=== PATIENT | female | born 1955 | race Caucasian/White ===

== ENCOUNTER 2017-01-19 18:13 | Inpatient (IN) ==
[2017-01-19] MEDS ORDERED: IPRATROPIUM/ALBUTEROL 3 ML AMPUL.NEB NEB ONE ×2 (18:28→18:36)
--- NOTE | 2017-01-19 18:34 | Emergency Department Note ---
SOB HPI - General Chief Complaint: Shortness of Breath/Dyspnea Stated Complaint: Shortness of breath Time Seen by Provider: 01/19/17 18:28 Source: patient Mode of arrival: ambulatory Limitations: no limitations - History of Present Illness Patient is here for difficulty breathing, history of COPD continues smoking with gradually progressive shortness of breath is also on oxygen.. She smokes about 10 0 today, was recently hospitalized for COPD exacerbation she was at [facility] without last hospital admission. Has been in and out of hospital frequently, denies any chest pain but does feel short of breath which has come on gradually worse today. MD Complaint: shortness of breath - Related Data Home Medications Medication Instructions Recorded Confirmed Albuterol Sulfate [Ventolin] 1 puff INH Q4HP PRN 08/15/16 12/24/16 Baclofen [Lioresal] 10 mg PO BID 08/15/16 12/24/16 Gabapentin [Neurontin] 300 mg PO BID 08/15/16 12/24/16 sitaGLIPtin [Januvia] 50 mg PO DAILY 12/23/16 12/24/16 Previous Rx's Medication Instructions Recorded Potassium Chloride [Kdur] 20 meq PO BIDCC #15 tablet 10/02/16 metFORMIN [Glucophage] 500 mg PO BIDCC #60 tablet 11/21/16 Azithromycin [Zithromax] 250 mg PO DAILY #6 tablet 12/23/16 Lisinopril [Zestril] 10 mg PO DAILY #30 tablet 12/23/16 predniSONE [Deltasone] 40 mg PO DAILY #10 tablet 12/23/16 Allergies Allergy/AdvReac Type Severity Reaction Status Date / Time Penicillins Allergy Unknown Rash Verified 01/19/17 18:17 Review of Systems All systems ED: reviewed and negative except as stated. Past Medical History - Past Medical History Source: old records reviewed, nursing notes reviewed Medical history: Reports: arthritis, COPD, diabetes, hypertension, osteoporosis , thyroid disease Surgical history ED: Reports: cholecystectomy, other (myomectomy) Psychiatric history: Reports: depression Family history: Reports: non-contributory - Social History smoking status: Current every day smoker Alcohol use: Reports: None Drug use: Reports: marijuana, prescription drug abuse (in the past) Physical Exam - General Limitations: no limitations General appearance: alert, in no apparent distress - Head Head exam: atraumatic, normocephalic - Eye Eye exam: Present: normal appearance, PERRL, EOMI. Absent: conjunctival injection - ENT ENT exam: normal exam, normal oropharynx, mucous membranes dry, TM's normal bilaterally, normal external ear exam, other (poor oral hygiene) - Neck Neck exam: Present: normal inspection, full ROM - Chest Chest inspection: Present: normal inspection, symmetric chest wall rise - Respiratory Respiratory exam: Present: respiratory distress, wheezes, prolonged expiratory phase - Cardiovascular Cardiovascular exam: Present: regular rate, normal heart sounds - Abdominal Exam Abdominal exam: Present: soft. Absent: distention - Extremities Exam Extremities exam: Present: normal inspection, full ROM. Absent: joint swelling - Back Exam Back exam: Present: normal inspection, full ROM. Absent: CVA tenderness (R), CVA tenderness (L) - Neurological Exam Neurological exam: Present: alert, oriented X3, CN II-XII intact. Absent: motor sensory deficit - Psychiatric Psychiatric exam: Present: normal affect - Skin Skin exam: Present: warm, dry, cyanosis Course - Reevaluation(s) Reevaluation #1: Patient started on Solu-Medrol, given IV fluids as well as breathing treatments , she was still markedly wheezy even after Solu-Medrol and breathing treatments , was started on Levaquin as her white blood cell count was 19,000, likely some of this is from her steroid use. Vital Signs Temperature 98.3 F 01/19/17 18:14 Pulse Rate 126 H 01/19/17 18:14 Respiratory Rate 28 H 01/19/17 18:14 Blood Pressure 199/88 01/19/17 18:14 Pulse Oximetry (%) 95 01/19/17 18:14 Temperature 98.3 F 01/19/17 18:14 Pulse Rate 116 H 01/19/17 19:27 Respiratory Rate 26 H 01/19/17 19:27 Blood Pressure 171/88 01/19/17 19:01 Pulse Oximetry (%) 95 01/19/17 19:27 Shortness of Breath/Dyspnea - [facility] Narrative Medical decision making narrative: final diagnosis is COPD exacerb ,severe and end-stage COPD, discussed with Dr. Srinivasan - Lab Data Lab results reviewed: Yes I reviewed the patient's lab results. Result diagrams: 01/19/17 18:41 01/19/17 18:41 Lab Results 01/19/17 01/19/17 Range/Units 18:41 18:41 WBC 19.0 H (4.5-11.0) K/mcL RBC 3.70 L (4.00-5.20) M/mcL Hgb 11.1 L (12.0-15.0) g/dL Hct 33.9 L (36.0-48.0) % MCV 91.8 (80.0-100.0) fL MCH 30.1 (26.0-34.0) pg MCHC 32.8 (31.0-36.0) g/dL RDW 13.9 (11.5-14.5) % Plt Count 461 H (140-440) K/mcL MPV 7.1 L (7.4-10.4) fL Gran % 87.1 H (38.0-78.0) % Lymph % (Auto) 10.1 L (15.5-49.0) % [place] % (Auto) 1.8 (1.0-12.0) % Eos % (Auto) 0.8 (0.0-7.0) % Baso % (Auto) 0.2 (0.0-2.0) % Gran # 16.6 H (1.8-8.0) K/mcL Lymph # (Auto) 1.9 (1.5-4.8) K/mcL [place] # (Auto) 0.3 (0.1-0.9) K/mcL Eos # (Auto) 0.2 (0.0-0.7) K/mcL Baso # (Auto) 0 (0.0-0.3) K/mcL Sodium 139 (133-145) mmol/L Potassium 4.0 (3.3-5.1) mmol/L Chloride 96 (96-108) mmol/L Carbon Dioxide 30 (22-30) mmol/L Anion Gap 13.0 (8-16) BUN 18 (8-23) mg/dl Creatinine 0.9 (0.6-1.1) mg/dl GFR Calculation 68 Glucose 294 H (70-105) mg/dL Calcium 9.2 (8.6-10.4) mg/dl Total Bilirubin < 0.2 (0.0-1.0) mg/dL AST 12 (0-37) U/l ALT 10 (0-40) U/l Alkaline Phosphatase 100 (39-117) U/L NT-Pro-B Natriuret Pep 3149.0 H (0-125) pg/ml Total Protein 6.9 (5.9-8.4) gm/dL Albumin 4.1 (3.2-5.2) gm/dL Globulin 2.8 (2.2-3.7) gm/dL Albumin/Globulin Ratio 1.5 (1.0-2.3) - EKG Data EKG attestation: Yes I reviewed and interpreted this EKG. EKG shows normal: Reports: sinus rhythm Rate: Reports: tachycardia [place]/QRS: Reports: right axis deviation Disposition Clinical Impression: COPD exacerbation Disposition: Xfer As Inpt ([facility]) Condition: Fair Referrals: Jazmine Yao MD [Primary Care Provider] -
[2017-01-19] MEDS ORDERED: methylPREDNISolone SOD SUCC 125 MG/2 ML VIAL IV ONE (18:36)
[2017-01-19 19:04] LABS: Basophils # (Auto) 0 K/mcL (0.0-0.3); Basophils % (Auto) 0.2 % (0.0-2.0); Eosinophils # (Auto) 0.2 K/mcL (0.0-0.7); Eosinophils % (Auto) 0.8 % (0.0-7.0); Granulocytes % (Auto) 87.1 % (38.0-78.0); Lymphocytes # (Auto) 1.9 K/mcL (1.5-4.8); Lymphocytes % (Auto) 10.1 % (15.5-49.0); Mean Cell Volume 91.8 fL (80.0-100.0); Mean Corpuscular HGB Conc 32.8 g/dL (31.0-36.0); Mean Corpuscular Hemoglobin 30.1 pg (26.0-34.0); Monocytes # (Auto) 0.3 K/mcL (0.1-0.9); Monocytes % (Auto) 1.8 % (1.0-12.0); Platelet Count 461 K/mcL (140-440); Red Cell Distribution Width 13.9 % (11.5-14.5)
[2017-01-19] MEDS: THEOPHYLLINE ANHYDROUS 200 MG TAB.SR.12H PO SCH ×2 (19:09→22:30)
[2017-01-19 19:25] LABS: ALT/SGPT 10 U/l (0-40); Albumin 4.1 gm/dL (3.2-5.2); Albumin/Globulin Ratio 1.5 (1.0-2.3); Alkaline Phosphatase 100 U/L (39-117); Blood Urea Nitrogen 18 mg/dl (8-23)
[2017-01-19] MEDS ORDERED: LEVOFLOXACIN 500 MG/100 ML BAG IV ONE (19:47)
[2017-01-19] MEDS ORDERED: NICOTINE 21 MG PATCH TOPICAL ONE (20:01)
[2017-01-19] MEDS ORDERED: LORazepam 2 MG/ML VIAL IV ONE (20:02)
--- NOTE | 2017-01-19 20:39 | Internal Med History&Physical ---
Medical - H&P: HPI Patient information: Note initiated : 01/19/17 at 8:36 pm Patient: Zakia Gibson 62 y/o F admitted on for Shortness of breath. History of present illness: Ms. Gibson is a 62 year old F This patient has a long-standing history of COPD. She has been admitted quite a few times for respiratory failure. She was in our emergency room on December 29, and transferred over to [facility] with respiratory failure. She says she was there for about 5 days and then was discharged home on prednisone and antibiotics. She thinks she did okay for a week or so, and then developed increasing shortness of breath again 5 or 6 days ago. She did see her primary care physician about 2 days ago who put her on prednisone 60 mg a day, and continued an antibiotic that she had already been on, the name of which she cannot remember. Today she presented to the emergency room because she just could not catch her breath. She is on home oxygen. She has had a mild headache , and has a chronic cough which is not much different than usual. She says she has only minimal sinus congestion. She was a little bit nauseated today. She does have intermittent diarrhea. Otherwise, she denies known fever or chills, dizziness, new eye or ear symptoms. She denies sore throat, chest pain or palpitations, abdominal pain, nausea or vomiting, dysuria. She denies swollen glands. ER evaluation showed marked leukocytosis, tachycardia, tachypnea, hypoxia. Patient was treated with IV steroids, continuous nebs, theophylline, Ativan, morphine, but really showed no improvement. Patient is now admitted for further workup and treatment. Past medical history: -Admitted to [facility] on December 29, 2016, respiratory failure with CO2 retention and hypoxia and acidosis. Severe sepsis June 2015 COPD with CO2 retention, also possible pulmonary fibrosis. Multilobar pneumonia Malignant hypertension Flash pulmonary edema T6 compression fracture/chronic pain. Type 2 diabetes Tobacco abuse Chronic pain, diabetic neuropathy Osteoporosis Osteoarthritis Thyroid disease Bronchitis (Acute) Hypercarbia (Chronic) Acute on chronic respiratory failure with hypoxemia (Acute) Pulmonary edema (Resolved) COPD with exacerbation (Acute) Right upper lobe pneumonia (Acute) Acute opioid intoxication delirium with moderate or severe use disorder (Acute) Depression. Anxiety Medications: The patient did not bring a list of her meds, and cannot recall them. We are waiting a discharge medication list from [facility] from 2 weeks ago. (Januvia 50 mg daily -- ? discontinued) Metformin 500 mg twice daily next line prednisone 60 mg daily (Potassium chloride 20 mEq twice daily-- ? discontinued) (Lisinopril 10 mg daily-- discontinued?) Gabapentin 300 mg twice daily (Baclofen 10 mg twice daily-- discontinued?) Albuterol inhaler every 4 hours as needed Oxygen 3 L continuous She was discharged from [facility] on Levaquin 500 mg daily, and this was probably continued by her PCP. Duo nebs 3 times daily Amlodipine 5 mg daily Tylenol 1-2 tabs every 4 hours as needed Compazine 10 mg every 6 hours as needed nausea Florastor 250 mg twice daily Dulcolax as needed constipation Colace 100 mg twice daily Budesonide 0.5 mg every 12 hours per nebulizer Prednisone taper NovoLog sliding scale before meals and at bedtime MiraLAX 17 g by mouth [place] 7.5/325 1-2 every 4 hours as needed pain Nicotine patch 21 mg daily Paxil 20 mg daily Singulair 10 mg nightly Levothyroxine 100 mcg daily Omeprazole 40 mg daily Albuterol nebulizer every 2 hours as needed Past surgical history: cholecystectomy, myomectomy, anterior spinal fusion C4 through C6. Severe degenerative disc disease C3-4 and C6-7, spinal canal stenosis at C3-4 Allergies: Penicillin Family history: No history of lung cancer, hypertension, pulmonary emboli. Patient says her mother and grandmother both had diabetes. Her mom with cervical cancer. Her father with bile duct cancer. Her sister has had TIAs. She has 1 daughter who is alive and well. Social history: Chronic tobacco abuse, she has been smoking since the age of 18. She is currently smokes about a half pack of cigarettes per day. She also smokes marijuana daily. She generally does not drink alcohol. She does not use drugs. She moved in with her sister about a year ago. Medical - H&P: Meds Home Medications Medication Instructions Recorded Confirmed Type Albuterol Sulfate [Ventolin] 1 puff INH Q4HP PRN 08/15/16 12/24/16 History Baclofen [Lioresal] 10 mg PO BID 08/15/16 12/24/16 History Gabapentin [Neurontin] 300 mg PO BID 08/15/16 12/24/16 History Potassium Chloride [Kdur] 20 meq PO BIDCC #15 tablet 10/02/16 12/24/16 Rx metFORMIN [Glucophage] 500 mg PO BIDCC #60 tablet 11/21/16 12/24/16 Rx Azithromycin [Zithromax] 250 mg PO DAILY #6 tablet 12/23/16 12/24/16 Rx Lisinopril [Zestril] 10 mg PO DAILY #30 tablet 12/23/16 12/24/16 Rx predniSONE [Deltasone] 40 mg PO DAILY #10 tablet 12/23/16 12/24/16 Rx sitaGLIPtin [Januvia] 50 mg PO DAILY 12/23/16 12/24/16 History Allergies Allergy/AdvReac Type Severity Reaction Status Date / Time Penicillins Allergy Unknown Rash Verified 01/19/17 18:17 Medical - H&P: Exam - Constitutional Vitals: Temp Pulse Resp BP Pulse Ox 98.3 F 116 H 25 H 160/87 94 01/19/17 18:14 01/19/17 20:33 01/19/17 20:33 01/19/17 20:31 01/19/17 20:33 Patient is sitting straight up in bed, as that is her most comfortable position. She is somewhat tachypneic during our interview, but continues to eat a sandwich at the same time. Head: Normocephalic, atraumatic. Eyes: PERRLA, EOMI, anicteric. Ears: Both canals are occluded by cerumen. Pharynx: Pharynx appears clear. Mucosa looks dry. Teeth are in very poor condition, and most are broken off. Neck: Is supple, without obvious lymphadenopathy, JVD, thyromegaly, bruits. Exam was a bit difficult over the noise of her breathing. Cardiac: Shows regular rate and rhythm, with normal S1 and S2. No murmurs, rubs , gallops are noted. Lungs: She has fairly coarse somewhat wet sounding breath sounds throughout, with scattered wheezes. Accessory muscle use is noted. She is sitting straight up and leaning slightly forward. Abdomen: Is soft and nontender. Abdomen exam is suboptimal because of her unwillingness to lay down. Bowel sounds are active. Extremities: She has about 1+ pitting edema almost up to the knees bilaterally. Pulses appear intact. Skin exam: Shows numerous ecchymoses, mainly on her arms, likely due to recent hospital visits. Neurologic exam: The patient is alert and oriented, and exam is grossly nonfocal. Medical - H&P: Reslt - Labs CBC & Chem 7: 01/19/17 18:41 01/19/17 18:41 Labs: Short CBC 01/19/17 Range/Units 18:41 WBC 19.0 H (4.5-11.0) K/mcL Hgb 11.1 L (12.0-15.0) g/dL Hct 33.9 L (36.0-48.0) % Plt Count 461 H (140-440) K/mcL BMP 01/19/17 18:41 Sodium 139 Potassium 4.0 Chloride 96 Carbon Dioxide 30 BUN 18 Creatinine 0.9 Glucose 294 H Calcium 9.2 Liver Function 01/19/17 Range/Units 18:41 Total Bilirubin < 0.2 (0.0-1.0) mg/dL AST 12 (0-37) U/l ALT 10 (0-40) U/l Alkaline Phosphatase 100 (39-117) U/L Albumin 4.1 (3.2-5.2) gm/dL January 18: BNP is elevated at 3149 EKG: Sinus tachycardia at a rate of about 100. Right bundle branch block. No significant change from previous. Chest x-ray: A formal report is not ready yet. X-ray shows hyperinflation with flattened diaphragms. There appears to be mild pulmonary vascular cephalization. CBC differential: Show 16,000 granulocytes. Urinalysis: Shows 30 mg of protein, 50 mg of glucose, 5 hyaline casts, and is otherwise normal. July,: Echocardiogram: Hyperdynamic LV systolic performance ejection fraction of 75%. Mitral annular calcification. December 29, 2016 AB L nasal cannula: PH 7.26, PCO2 81, PO2 83, bicarb 36, O2 saturation 98% Medical - H&P: A/P (1) SIRS (systemic inflammatory response syndrome) Current visit: Yes Status: Acute (2) CHF (congestive heart failure) Current visit: Yes Status: Acute (3) Acute on chronic respiratory failure with hypoxemia Current visit: No Status: Acute (4) COPD (chronic obstructive pulmonary disease) Current visit: No Status: Acute (5) Diabetes Current visit: No Status: Chronic (6) Tobacco abuse disorder Current visit: No Status: Chronic - Narrative A/P Narrative: #1. Pulmonary. Acute on chronic respiratory failure, with hypoxia. Likely cause a COPD exacerbation, versus occult pneumonia. BNP is also elevated , so there may be to some degree of CHF. -Admit to telemetry for close monitoring. -Oxygen, bronchodilators, pulmonary toilet. -Blood and urine cultures. -Sputum culture if available. -Cover for possible community-acquired pneumonia, with Rocephin and Zithromax. She was also hospitalized earlier this month, so she may need to be covered with vancomycin as well. -IV steroids. -Check lactic acid and pro-calcitonin. -Rule out other causes of hypoxia. Check d-dimer and troponin. Check ABG. Send for records from recent hospitalization at [facility]. #2. Tobacco abuse. Discussed that she should once again consider quitting smoking. -NicoDerm patch. 3. DVT prophylaxis: Subcu heparin. 4. CODE STATUS: Full code. Patient states that at this time she think she would still want everything done. Her older sister is in the room with her, and would act as her POA. 5. Cardiac. Elevated BNP. We will avoid IV fluids tonight. -Trial of 1 dose of IV Lasix tonight. Recheck chest x-ray in the morning. Consider echocardiogram. -History of hypertension. 6. Osteoporosis and history of compression fractures. She should be on calcium plus vitamin D, at a minimum. 7. Endocrine. -Type 2 diabetes. Continue Januvia and metformin. Accu-Cheks and sliding scale insulin coverage. Continue lisinopril. It is not clear why patient is not on a statin and aspirin as well. Check medication list when it arrives from [facility]. 8. Neurologic. History of neuropathy. Continue gabapentin. -Contact PCP office tomorrow, if they are open, to try to further discrepancies between our medication list and the [place] discharge medication list. This visit took approximately 65 minutes, to review the patient's extensive old records, review records from [facility], discussed her case with the ER MD, interview and examine her, review plan of care with the patient and her sister, and write orders
[2017-01-19 20:47] LABS: Appearance,Urine CLEAR; Bacteria,Urine 0 /hpf (0); Bilirubin,Urine NEG (NEG); Color,Urine STRAW; Glucose,Urine (UA) 50 mg/dL (NEG); Leukocyte Esterase,Urine NEG /uL (NEG); Nitrate,Urine NEG (NEG); Protein,Urine 30 mg/dL (NEG); Specific Gravity,Urine 1.012 (1.000-1.035); Urine Blood NEG mg/dL (<0.03); Urine Hyaline Cast 5 /lpf (0-2); Urine RBC < 1 /hpf (0-1); Urine Squamous Epithelial Cell 1 /hpf (0-4); Urine Transitional Epi Cells < 1 /hpf (0-2); Urine WBC 1 /hpf (0-4); Urobilinogen,Urine NEG (NEG)
[2017-01-19] MEDS ORDERED: ACETAMINOPHEN 325 MG TABLET PO PRN (21:31)
[2017-01-19] MEDS ORDERED: ONDANSETRON 4 MG/2 ML VIAL IV PRN (21:31)
[2017-01-19] MEDS ORDERED: cefTRIAXone 1 GM VIAL ONE (21:49)
[2017-01-19] MEDS ORDERED: LORazepam 2 MG/ML VIAL IV PRN (22:14)
[2017-01-19] MEDS: cefTRIAXone 1 GM in DEXTROSE 5% IN WATER 50 ML IV SCH (22:30)
[2017-01-19] MEDS ORDERED: FUROSEMIDE 20 MG/2 ML VIAL IV ONE ×2 (22:39→23:08)
[2017-01-19] MEDS: methylPREDNISolone SOD SUCC 125 MG/2 ML VIAL IV SCH (23:11)
[2017-01-19] MEDS: AZITHROMYCIN 500 MG in DEXTROSE 5% IN WATER 250 ML IV SCH (23:16)
[2017-01-19] MEDS: CARISOPRODOL 350 MG TABLET PO PRN (23:49)
[2017-01-20] MEDS: IPRATROPIUM/ALBUTEROL 3 ML AMPUL.NEB NEB SCH ×4 (00:47→20:08)
[2017-01-20] MEDS: INSULIN LISPRO 1 UNIT/0.01 ML UNIT SQ SCH ×5 (00:52→20:41)
[2017-01-20 00:53] LABS: Hemoglobin A1C 9.1 % HGB (4.0-6.0)
[2017-01-20] MEDS ORDERED: INSULIN LISPRO 1 UNIT/0.01 ML UNIT SQ ONE (00:53)
--- NOTE | 2017-01-20 06:19 | XRay Report ---
CLINICAL INFORMATION: Dyspnea COMPARISON: 12/24/2016 FINDINGS: Heart size, mediastinum and pulmonary vessels are normal. Lungs volumes are elevated suggestive of COPD. There are healing fractures of both lateral 10th ribs with increasing density overlying the right side fracture site. This could represent small extrapleural hematoma. Mild osteoporotic compression fractures of thoracic spine are stable IMPRESSION: COPD Healing fractures of both lateral 10th ribs with increasing density developing over the right lateral rib fracture site. This likely represents a small extrapleural hematoma. Pulmonary nodule less likely. Suggest: Right rib films Interpreted and Authenticated by: Gerry Danielson 01/20/17
[2017-01-20 06:31] LABS: Basophils # (Auto) 0 K/mcL (0.0-0.3); Basophils % (Auto) 0 % (0.0-2.0); Eosinophils # (Auto) 0.1 K/mcL (0.0-0.7); Eosinophils % (Auto) 0.6 % (0.0-7.0); Granulocytes % (Auto) 96.2 % (38.0-78.0); Lymphocytes # (Auto) 0.3 K/mcL (1.5-4.8); Lymphocytes % (Auto) 2.8 % (15.5-49.0); Mean Cell Volume 92.6 fL (80.0-100.0); Mean Corpuscular HGB Conc 33.2 g/dL (31.0-36.0); Mean Corpuscular Hemoglobin 30.7 pg (26.0-34.0); Monocytes # (Auto) 0.1 K/mcL (0.1-0.9); Monocytes % (Auto) 0.4 % (1.0-12.0); Platelet Count 394 K/mcL (140-440); RBC 3.39 M/mcL (4.00-5.20); Red Cell Distribution Width 13.7 % (11.5-14.5)
[2017-01-20 07:58] LABS: ALT/SGPT 10 U/l (0-40); Albumin 3.8 gm/dL (3.2-5.2); Albumin/Globulin Ratio 1.6 (1.0-2.3); Alkaline Phosphatase 92 U/L (39-117); Bilirubin,Direct < 0.2 mg/dL (0.0-0.3); Blood Urea Nitrogen 23 mg/dl (8-23); Gamma Glutamyl Transpeptidase 15 U/L (5-36); Magnesium 1.8 mg/dL (1.6-2.5); Uric Acid 6.5 mg/dL (2.5-8.0)
[2017-01-20] MEDS: PANTOPRAZOLE 40 MG PACKET PO SCH (08:03)
[2017-01-20] MEDS: LEVOTHYROXINE 100 MCG TABLET PO SCH (08:03)
[2017-01-20] MEDS ORDERED: THEOPHYLLINE ANHYDROUS 200 MG TAB.SR.12H PO SCH (09:00)
[2017-01-20] MEDS: ALBUTEROL SULFATE 2.5 MG/3 ML NEBULIZER NEB PRN (09:27)
[2017-01-20] MEDS: methylPREDNISolone SOD SUCC 125 MG/2 ML VIAL IV SCH ×2 (09:35→20:10)
[2017-01-20] MEDS: VITAMIN D3 1,000 UNIT TABLET PO SCH ×2 (09:36→20:15)
[2017-01-20] MEDS: PARoxetine 20 MG TABLET PO SCH (09:36)
[2017-01-20] MEDS: POLYETHYLENE GLYCOL 3350 17 GM PACKET PO SCH (09:36)
[2017-01-20] MEDS: GABAPENTIN 300 MG CAPSULE PO SCH ×2 (09:36→20:10)
[2017-01-20] MEDS: amLODIPine 5 MG TABLET PO SCH (09:36)
[2017-01-20] MEDS: ENOXAPARIN 40 MG/0.4 ML SYRINGE SQ SCH (09:36)
[2017-01-20] MEDS: CALCIUM CARBONATE 500 MG TAB.CHEW CHEWED SCH ×2 (09:37→15:32)
[2017-01-20] MEDS: HYDROCODONE/APAP 7.5/325MG TABLET PO PRN ×2 (09:38→15:37)
--- NOTE | 2017-01-20 11:44 | XRay Report ---
CLINICAL INFORMATION: Hypoxia COMPARISON: 01/19/2017 FINDINGS: The heart is mildly enlarged. Mediastinum is unremarkable. Pulmonary vessels are mildly distended and there is mild interstitial edema. Healing fractures of the posterior lateral 10th ribs are again noted IMPRESSION: Mild CHF Interpreted and Authenticated by: Gerry Danielson 01/20/17
--- NOTE | 2017-01-20 15:24 | Internal Med Progress Note ---
Medical - PN: Subj Patient information: Note initiated : 01/20/17 at 3:24 pm Patient: Zakia Gibson 62 y/o F admitted on 01/19/17 for Shortness of breath. Interval history: January 19, 2017: History of present illness: Ms. Gibson is a 62 year old F This patient has a long-standing history of COPD. She has been admitted quite a few times for respiratory failure. She was in our emergency room on December 29, and transferred over to [facility] with respiratory failure. She says she was there for about 5 days and then was discharged home on prednisone and antibiotics. She thinks she did okay for a week or so, and then developed increasing shortness of breath again 5 or 6 days ago. She did see her primary care physician about 2 days ago who put her on prednisone 60 mg a day, and continued an antibiotic that she had already been on, the name of which she cannot remember. Today she presented to the emergency room because she just could not catch her breath. She is on home oxygen. She has had a mild headache , and has a chronic cough which is not much different than usual. She says she has only minimal sinus congestion. She was a little bit nauseated today. She does have intermittent diarrhea. Otherwise, she denies known fever or chills, dizziness, new eye or ear symptoms. She denies sore throat, chest pain or palpitations, abdominal pain, nausea or vomiting, dysuria. She denies swollen glands. ER evaluation showed marked leukocytosis, tachycardia, tachypnea, hypoxia. Patient was treated with IV steroids, continuous nebs, theophylline, Ativan, morphine, but really showed no improvement. Patient is now admitted for further workup and treatment. January 20: -The patient had a reasonably good night. She remains tachycardic, but tachypnea is improved. Blood pressures are running a bit high. Metcalf catheter was placed, as I gave her IV Lasix for possible CHF. She did diurese about 500 mL overnight. White blood cell count is improved today, and lactic acid is back to normal. Blood sugars are running quite high, presumably due to the steroids. -The patient says she is feeling better today. She is sitting up in a chair. She notes she does much better with an oxygen mask and a nasal cannula, as she tends to breathe through her mouth. She is quite annoyed by her Metcalf catheter , and would like that discontinued. She is demanding that we give her a Pepsi, and not diet. She says she understands that it is not good for her diabetes or her kidneys, but she wants it anyway. Shortness of breath overall is improved, as is her cough. Otherwise, she denies fever or chills, sore throat, chest pain or palpitations, abdominal pain nausea or vomiting, diarrhea. - Constitutional Vitals: Vital Signs Temp Pulse Resp BP Pulse Ox 98.2 F 108 H 20 182/88 94 01/20/17 12:00 01/20/17 13:33 01/20/17 13:33 01/20/17 12:00 01/20/17 13:33 Period Temp Pulse Resp BP Sys/Gutierrez Pulse Ox Last 24 Hr 97.8 F-98.4 F 96-110 20-30 155-182/74-101 89-100 Intake and Output 01/20/17 01/20/17 01/20/17 05:59 13:59 21:59 Intake Total 1210 / 1210 370 / 370 Output Total 1811 / 1811 Balance -601 / -601 370 / 370 Weight 126 lb 8 oz Patient Weight 01/21/17 05:59 Weight 126 lb 8 oz Intake & Output: Intake & Output 01/20/17 01/20/17 01/20/17 05:59 13:59 21:59 Intake Total 1210 / 1210 370 / 370 Output Total 1811 / 1811 Balance -601 / -601 370 / 370 Weight 126 lb 8 oz Intake: IV 250 / 250 Zithromax 500 mg In 250 / 250 Dextrose 5% in Water 250 ml @ 250 mls/hr IV DAILY FITO Rx#:[id number] Oral 1160 / 1160 120 / 120 IV - Manual Only 50 / 50 Output: Urine Catheter Amount 600 / 600 Void Amount 1210 / 1210 # of times incontinent of 1 / 1 urine Other: Meal snack Breakfast Percent of Meal Consumed 100% 25% Feeding Ability Assist with Tray Set Up # Bowel Movements 1 Heart rate is 108. Respiratory rate 20 blood pressure 182/88. O2 saturation is 94% on a 2 L oxygen mask. She is sitting up in a chair, eating lunch, and appears to have a good appetite. Neck shows no obvious JVD or lymphadenopathy. Cardiac exam shows regular rate and rhythm. Lungs: Have soft diffuse wheezes throughout both lung bullard. Breathing is mildly labored. Abdomen is soft and nontender. Extremities: Show about 1+ edema at the ankles and feet. Neurologic exam: Is grossly nonfocal Medical - PN: Obj Da - Labs CBC & Chem 7: 01/20/17 03:40 01/20/17 03:40 Labs: Abnormal Lab Results 01/20/17 01/20/17 01/19/17 03:40 03:40 22:20 WBC 12.0 H RBC 3.39 L Hgb 10.4 L Hct 31.4 L MPV 7.1 L Gran % 96.2 H Lymph % (Auto) 2.8 L Motley % (Auto) 0.4 L Gran # 11.6 H Lymph # (Auto) 0.3 L D-Dimer 0.57 H VBG Lactic Acid Chloride 93 L Carbon Dioxide 31 H Glucose 367 H 01/19/17 22:00 WBC RBC Hgb Hct MPV Gran % Lymph % (Auto) Motley % (Auto) Gran # Lymph # (Auto) D-Dimer VBG Lactic Acid 4.4 H* Chloride Carbon Dioxide Glucose January 20: Lactic acid is down to 2.2 Follow-up chest x-ray: Pulmonary vascular congestion, with mild interstitial edema. Rib fractures. Mild cardiomegaly. January 18: BNP is elevated at 3149 EKG: Sinus tachycardia at a rate of about 116. Right bundle branch block. No significant change from previous. Chest x-ray: X-ray shows hyperinflation with flattened diaphragms. There appears to be mild pulmonary vascular cephalization. Mild cardiomegaly. Healing fractures of the posterior lateral 10th ribs are noted, with an increasing density developing, likely consistent with extrapleural hematoma.. CBC differential: Show 16,000 granulocytes. White blood cell count 19,000. Chemistry panel: Glucose 294. Hemoglobin A1c is elevated at 9.1% Urinalysis: Shows 30 mg of protein, 50 mg of glucose, 5 hyaline casts, and is otherwise normal. July,: Echocardiogram: Hyperdynamic LV systolic performance ejection fraction of 75%. Mitral annular calcification. December 29, 2016 AB L nasal cannula: PH 7.26, PCO2 81, PO2 83, bicarb 36, O2 saturation 98% Meds: Medications Acetaminophen (Tylenol) 650 mg PO Q6HP PRN PRN Reason: PAIN/FEVER > 101 Hydrocodone Bitart/Acetaminophen ([place] 7.5/325mg) 2 tab PO Q4-6HP PRN PRN Reason: Pain Last Admin: 01/20/17 09:38 Dose: 2 tab Albuterol Sulfate (Ventolin) 2.5 mg NEB Q4HRT PRN PRN Reason: Shortness Of Breath Or Wheezing Last Admin: 01/20/17 09:27 Dose: 2.5 mg Albuterol/Ipratropium (Duoneb) 3 ml NEB Q6HRT FITO Last Admin: 01/20/17 13:32 Dose: 3 ml Amlodipine Besylate (Norvasc) 5 mg PO DAILY [facility] Last Admin: 01/20/17 09:36 Dose: 5 mg Calcium Carbonate/Glycine (Tums) 500 mg CHEWED BID@0830,1230 [facility] Last Admin: 01/20/17 09:37 Dose: 500 mg Carisoprodol (Soma) 350 mg PO QIDP PRN PRN Reason: Muscle Spasm Last Admin: 01/19/17 23:49 Dose: 350 mg Diagnostic Test (Pha) (Accu-Chek) 1 each FS ACHS [facility] Last Admin: 01/20/17 12:05 Dose: 1 each Enoxaparin Sodium (Lovenox) 40 mg SQ DAILY [facility] Last Admin: 01/20/17 09:36 Dose: 40 mg Gabapentin (Neurontin) 300 mg PO BID [facility] Last Admin: 01/20/17 09:36 Dose: 300 mg Azithromycin 500 mg/ Dextrose 250 mls @ 250 mls/hr IV DAILY [facility] Stop: 01/21/17 09:59 Last Infusion: 01/20/17 06:24 Dose: Infused Ceftriaxone Sodium 1 gm/ (Dextrose) 50 mls @ 100 mls/hr IV DAILY [facility] Last Admin: 01/19/17 22:30 Dose: Not Given Insulin Human Lispro (Humalog) 0 unit SQ ACHS [facility] PRN Reason: Protocol Last Admin: 01/20/17 12:10 Dose: 2 unit Levothyroxine Sodium (Synthroid) 100 mcg PO QAMAC [facility] Last Admin: 01/20/17 08:03 Dose: 100 mcg Lorazepam (Ativan) 0.5 mg IV Q2HP PRN PRN Reason: ANXIETY/SEDATION Methylprednisolone Sodium Succinate (Solu-Medrol) 80 mg IV Q12 [facility] Last Admin: 01/20/17 09:35 Dose: 80 mg Montelukast Sodium (Singular) 10 mg PO HS [facility] Morphine Sulfate (Morphine) 1 mg IV Q2HP PRN PRN Reason: Shortness Of Breath Ondansetron HCl (Zofran) 4 mg IV Q4HP PRN PRN Reason: Nausea And Vomiting Pantoprazole Sodium (Protonix) 40 mg PO QAMAC [facility] Last Admin: 01/20/17 08:03 Dose: 40 mg Paroxetine HCl (Paxil) 20 mg PO DAILY [facility] Last Admin: 01/20/17 09:36 Dose: 20 mg Polyethylene Glycol (Miralax) 17 gm PO DAILY [facility] Last Admin: 01/20/17 09:36 Dose: Not Given Vitamin D (Vitamin D3) 1,000 unit PO BID [facility] Last Admin: 01/20/17 09:36 Dose: 1,000 unit Medical - PN: A/P - Time Spent With Patient Total time spent is greater than 50% in coordination of care (as documented) at patient's floor/unit and/or counseling patient: 25 - 35 minutes (1) SIRS (systemic inflammatory response syndrome) Status: Acute Current Visit: Yes (2) CHF (congestive heart failure) Status: Acute Current Visit: Yes (3) Acute on chronic respiratory failure with hypoxemia Status: Acute Current Visit: No (4) COPD (chronic obstructive pulmonary disease) Status: Acute Current Visit: No (5) Diabetes Status: Chronic Current Visit: No (6) Tobacco abuse disorder Status: Chronic Current Visit: No - Narrative A/P Narrative: #1. Pulmonary. Acute on chronic respiratory failure, with hypoxia. Likely cause a COPD exacerbation, versus occult pneumonia. BNP is also elevated , so there may be some degree of CHF. -Clinically she does look better today. She seems to be in less distress. -Admitted to telemetry for close monitoring. -Continue oxygen, bronchodilators, pulmonary toilet. -Blood and urine cultures. -Sputum culture if available. -Covered for possible community-acquired pneumonia, with Rocephin and Zithromax. She was also hospitalized earlier this month, so she may need to be covered with vancomycin as well but white blood cell count is significantly improved just with Rocephin and Zithromax, so follow for now.. -IV steroids. -Lactic acid improved. -D-dimer is elevated a bit. I discussed possible CT angiogram with the patient , but since she is responding to treatment for COPD and pneumonia, we have elected to wait on that. -Records from [facility] indicated recent discharge on January 02, 2017 after acute on chronic respiratory failure. She was sent home on Levaquin and duo nebs, etc. Also prednisone 40 mg a day. Echocardiogram there showed normal systolic function with an ejection fraction of 55%, moderate LVH. Mild mitral annular calcification. #2. Tobacco abuse. Discussed that she should once again consider quitting smoking. -NicoDerm patch. 3. DVT prophylaxis: Subcu heparin. 4. CODE STATUS: Full code. Patient states that at this time she think she would still want everything done. Her older sister is in the room with her, and would act as her POA. 5. Cardiac. -The patient did diurese somewhat overnight, and does feel a bit better today. Recheck chest x-ray in the morning. Consider echocardiogram. -History of hypertension. This is not well controlled today. She was complaining loudly about wanting a caffeinated Pepsi today, so perhaps caffeine and/or nicotine withdrawal is playing a role. There is also some confusion about which medication she is actually taking at home. She was previously on lisinopril, but it look like [facility] discharged her just on amlodipine. I will add back lisinopril today, as this should help both with blood pressure and with her ankle edema. 6. Osteoporosis and history of compression fractures. She should be on calcium plus vitamin D, at a minimum. 7. Endocrine. -Type 2 diabetes. Leukosis today ranging from 198-296. Patient is insistent on having a regular Pepsi, even though she understands this will affect her blood sugars. Continue Januvia and metformin. Accu-Cheks and sliding scale insulin coverage. Continue lisinopril. It is not clear why patient is not on a statin and aspirin as well. Medication list from [facility] has a lot of discrepancies between the last list here. Nursing is trying to clarify her actual current list.. 8. Neurologic. History of neuropathy. Continue gabapentin. -Contact PCP office tomorrow, if they are open, to try to further discrepancies between our medication list and the [facility] discharge medication list. Medical - PN: Qual - VTE Deep Vein Thrombosis/Pulmonary Embolism Present on Admission: No
[2017-01-20] MEDS: cefTRIAXone 1 GM in DEXTROSE 5% IN WATER 50 ML IV SCH (15:32)
[2017-01-20] MEDS: CARISOPRODOL 350 MG TABLET PO PRN ×2 (15:37→20:15)
[2017-01-20] MEDS: AZITHROMYCIN 500 MG in DEXTROSE 5% IN WATER 250 ML IV SCH (16:11)
[2017-01-20] MEDS: MONTELUKAST 10 MG TABLET PO SCH (20:10)
[2017-01-20] MEDS ORDERED: LISINOPRIL 5 MG TABLET PO SCH (21:00)
[2017-01-21] MEDS: IPRATROPIUM/ALBUTEROL 3 ML AMPUL.NEB NEB SCH ×4 (00:17→20:32)
[2017-01-21 05:37] LABS: Basophils # (Auto) 0 K/mcL (0.0-0.3); Basophils % (Auto) 0 % (0.0-2.0); Eosinophils # (Auto) 0 K/mcL (0.0-0.7); Eosinophils % (Auto) 0.1 % (0.0-7.0); Granulocytes % (Auto) 95.1 % (38.0-78.0); Lymphocytes # (Auto) 0.6 K/mcL (1.5-4.8); Lymphocytes % (Auto) 4.2 % (15.5-49.0); Mean Cell Volume 92.3 fL (80.0-100.0); Mean Corpuscular HGB Conc 32.6 g/dL (31.0-36.0); Mean Corpuscular Hemoglobin 30.1 pg (26.0-34.0); Monocytes # (Auto) 0.1 K/mcL (0.1-0.9); Monocytes % (Auto) 0.6 % (1.0-12.0); Platelet Count 403 K/mcL (140-440); RBC 3.48 M/mcL (4.00-5.20); Red Cell Distribution Width 14.2 % (11.5-14.5)
[2017-01-21 05:58] LABS: ALT/SGPT 9 U/l (0-40); Albumin 3.6 gm/dL (3.2-5.2); Albumin/Globulin Ratio 1.6 (1.0-2.3); Alkaline Phosphatase 82 U/L (39-117); Bilirubin,Direct < 0.2 mg/dL (0.0-0.3); Blood Urea Nitrogen 33 mg/dl (8-23); Gamma Glutamyl Transpeptidase 14 U/L (5-36); Uric Acid 6.1 mg/dL (2.5-8.0)
[2017-01-21] MEDS: CARISOPRODOL 350 MG TABLET PO PRN ×2 (08:07→20:27)
[2017-01-21] MEDS: metFORMIN 500 MG TABLET PO SCH ×2 (08:07→16:49)
[2017-01-21] MEDS: CALCIUM CARBONATE 500 MG TAB.CHEW CHEWED SCH ×2 (08:07→12:11)
[2017-01-21] MEDS: PANTOPRAZOLE 40 MG PACKET PO SCH (08:07)
[2017-01-21] MEDS: HYDROCODONE/APAP 7.5/325MG TABLET PO PRN ×2 (08:07→16:49)
[2017-01-21] MEDS: LEVOTHYROXINE 100 MCG TABLET PO SCH (08:07)
--- NOTE | 2017-01-21 08:29 | XRay Report ---
CLINICAL INFORMATION: Increased white blood cell count evaluate for pneumonia COMPARISON: 01/20/2017 FINDINGS: The heart is moderately enlarged. Mediastinum is unremarkable. Pulmonary vessels are slightly distended with compared to earlier baseline study 2016 and there are a few Idris B lines in the lateral bases and a small right pleural effusion. Potential small vague infiltrate involving the right lateral base IMPRESSION: Mild CHF. Possible small vague infiltrate developing in the right lateral base Interpreted and Authenticated by: Gerry Danielson 01/21/17
[2017-01-21] MEDS: INSULIN LISPRO 1 UNIT/0.01 ML UNIT SQ SCH ×4 (08:55→20:34)
[2017-01-21] MEDS: ENOXAPARIN 40 MG/0.4 ML SYRINGE SQ SCH (08:56)
[2017-01-21] MEDS: sitaGLIPtin 50 MG TABLET PO SCH (08:56)
[2017-01-21] MEDS: amLODIPine 5 MG TABLET PO SCH (08:57)
[2017-01-21] MEDS: POLYETHYLENE GLYCOL 3350 17 GM PACKET PO SCH (08:57)
[2017-01-21] MEDS: GABAPENTIN 300 MG CAPSULE PO SCH ×2 (08:57→20:17)
[2017-01-21] MEDS: VITAMIN D3 1,000 UNIT TABLET PO SCH ×2 (08:57→20:28)
[2017-01-21] MEDS: LISINOPRIL 5 MG TABLET PO SCH ×2 (08:57→20:28)
[2017-01-21] MEDS: HYDROCHLOROTHIAZIDE 12.5 MG CAPSULE PO SCH (08:57)
[2017-01-21] MEDS: methylPREDNISolone SOD SUCC 125 MG/2 ML VIAL IV SCH ×2 (08:58→20:17)
[2017-01-21] MEDS: PARoxetine 20 MG TABLET PO SCH (09:00)
[2017-01-21] MEDS: cefTRIAXone 1 GM in DEXTROSE 5% IN WATER 50 ML IV SCH (09:02)
[2017-01-21] MEDS: AZITHROMYCIN 500 MG in DEXTROSE 5% IN WATER 250 ML IV SCH (09:02)
--- NOTE | 2017-01-21 11:05 | Internal Med Progress Note ---
Medical - PN: Subj Patient information: Note initiated : 01/21/17 at 11:05 am Patient: Zakia Gibson a 62 y/o F admitted on 01/19/17 for Shortness of breath. Interval history: January 19, 2017: History of present illness: Ms. Gibson is a 62 year old F This patient has a long-standing history of COPD. She has been admitted quite a few times for respiratory failure. She was in our emergency room on December 29, and transferred over to [facility] with respiratory failure. She says she was there for about 5 days and then was discharged home on prednisone and antibiotics. She thinks she did okay for a week or so, and then developed increasing shortness of breath again 5 or 6 days ago. She did see her primary care physician about 2 days ago who put her on prednisone 60 mg a day, and continued an antibiotic that she had already been on, the name of which she cannot remember. Today she presented to the emergency room because she just could not catch her breath. She is on home oxygen. She has had a mild headache , and has a chronic cough which is not much different than usual. She says she has only minimal sinus congestion. She was a little bit nauseated today. She does have intermittent diarrhea. Otherwise, she denies known fever or chills, dizziness, new eye or ear symptoms. She denies sore throat, chest pain or palpitations, abdominal pain, nausea or vomiting, dysuria. She denies swollen glands. ER evaluation showed marked leukocytosis, tachycardia, tachypnea, hypoxia. Patient was treated with IV steroids, continuous nebs, theophylline, Ativan, morphine, but really showed no improvement. Patient is now admitted for further workup and treatment. January 20: -The patient had a reasonably good night. She remains tachycardic, but tachypnea is improved. Blood pressures are running a bit high. Metcalf catheter was placed, as I gave her IV Lasix for possible CHF. She did diurese about 500 mL overnight. White blood cell count is improved today, and lactic acid is back to normal. Blood sugars are running quite high, presumably due to the steroids. -The patient says she is feeling better today. She is sitting up in a chair. She notes she does much better with an oxygen mask and a nasal cannula, as she tends to breathe through her mouth. She is quite annoyed by her Metcalf catheter , and would like that discontinued. She is demanding that we give her a Pepsi, and not diet. She says she understands that it is not good for her diabetes or her kidneys, but she wants it anyway. Shortness of breath overall is improved, as is her cough. Otherwise, she denies fever or chills, sore throat, chest pain or palpitations, abdominal pain nausea or vomiting, diarrhea. January 21: -Nursing tells me that the patient's family brought her Pepsi last night, and that she drank between 6 and 12. Blood glucose is greater than 300 this morning. -The patient is feeling better today, but she was getting up this morning to go to the bathroom, and says she lost her balance, ends locally fell to the floor, rather in slow motion. Respiratory therapy was nearby. The patient did not appear to be injured. -She says her breathing is definitely better today. She denies fever or chills , chest pain or palpitations, GI or symptoms. - Constitutional Vitals: Vital Signs Temp Pulse Resp BP Pulse Ox 97.7 F 97 H 20 158/82 94 01/21/17 08:00 01/21/17 07:25 01/21/17 08:00 01/21/17 08:00 01/21/17 08:00 Period Temp Pulse Resp BP Sys/Gutierrez Pulse Ox Last 24 Hr 97.3 F-98.2 F 93-108 16-21 158-182/82-97 93-100 Intake and Output 01/20/17 01/21/17 01/21/17 21:59 05:59 13:59 Intake Total 620 / 620 1030 / 1030 Balance 620 / 620 1030 / 1030 Weight 127 lb 8 oz Intake & Output: Intake & Output 01/20/17 01/21/17 01/21/17 21:59 05:59 13:59 Intake Total 620 / 620 1030 / 1030 Balance 620 / 620 1030 / 1030 Weight 127 lb 8 oz Intake: IV 300 / 300 Zithromax 500 mg In 250 / 250 Dextrose 5% in Water 250 ml @ 250 mls/hr IV DAILY [facility] Rx#:[id number] Rocephin 1 gm In Dextrose 50 / 50 5% in Water 50 ml @ 100 mls/hr IV DAILY [facility] Rx#: [id number] Oral 620 / 620 730 / 730 Other: Meal Breakfast Percent of Meal Consumed 75% Feeding Ability Independent # Voids 1 4 1 Current pulse is 97. Blood pressure 158/82. O2 saturation is 94% on 2 L She is sitting up in a chair, eating breakfast, and appears to have a good appetite. Neck shows no obvious JVD or lymphadenopathy. Cardiac exam shows regular rate and rhythm. Lungs: Have soft scattered wheezes throughout both lung bullard. Breathing appears less labored than yesterday. Abdomen is soft and nontender. Extremities: Show about 1+ edema at the ankles and feet. Neurologic exam: Is grossly nonfocal Medical - PN: Obj Da - Labs CBC & Chem 7: 01/21/17 03:55 01/21/17 03:55 Labs: Abnormal Lab Results 01/21/17 01/21/17 01/20/17 03:55 03:55 03:40 WBC 14.8 H RBC 3.48 L Hgb 10.5 L Hct 32.1 L MPV 7.0 L Gran % 95.1 H Lymph % (Auto) 4.2 L Clark % (Auto) 0.6 L Gran # 14.0 H Lymph # (Auto) 0.6 L D-Dimer VBG Lactic Acid Chloride 95 L 93 L Carbon Dioxide 34 H 31 H BUN 33 H Glucose 335 H 367 H Total Protein 5.8 L 01/20/17 01/19/17 01/19/17 03:40 22:20 22:00 WBC 12.0 H RBC 3.39 L Hgb 10.4 L Hct 31.4 L MPV 7.1 L Gran % 96.2 H Lymph % (Auto) 2.8 L Clark % (Auto) 0.4 L Gran # 11.6 H Lymph # (Auto) 0.3 L D-Dimer 0.57 H VBG Lactic Acid 4.4 H* Chloride Carbon Dioxide BUN Glucose Total Protein January 21: Chest x-ray is moderately enlarged. Pulmonary vessels still appear mildly distended. Potential small vague infiltrate involving the right lateral space. January 20: Lactic acid is down to 2.2 Blood cultures are negative so far. Follow-up chest x-ray: Pulmonary vascular congestion, with mild interstitial edema. Rib fractures. Mild cardiomegaly. January 18: BNP is elevated at 3149 EKG: Sinus tachycardia at a rate of about 116. Right bundle branch block. No significant change from previous. Chest x-ray: X-ray shows hyperinflation with flattened diaphragms. There appears to be mild pulmonary vascular cephalization. Mild cardiomegaly. Healing fractures of the posterior lateral 10th ribs are noted, with an increasing density developing, likely consistent with extrapleural hematoma.. CBC differential: Show 16,000 granulocytes. White blood cell count 19,000. Chemistry panel: Glucose 294. Hemoglobin A1c is elevated at 9.1% Urinalysis: Shows 30 mg of protein, 50 mg of glucose, 5 hyaline casts, and is otherwise normal. July,: Echocardiogram: Hyperdynamic LV systolic performance ejection fraction of 75%. Mitral annular calcification. December 29, 2016 AB L nasal cannula: PH 7.26, PCO2 81, PO2 83, bicarb 36, O2 saturation 98% Meds: Medications Acetaminophen (Tylenol) 650 mg PO Q6HP PRN PRN Reason: PAIN/FEVER > 101 Hydrocodone Bitart/Acetaminophen ([place] 7.5/325mg) 2 tab PO Q4-6HP PRN PRN Reason: Pain Last Admin: 01/21/17 08:07 Dose: 2 tab Albuterol Sulfate (Ventolin) 2.5 mg NEB Q4HRT PRN PRN Reason: Shortness Of Breath Or Wheezing Last Admin: 01/20/17 09:27 Dose: 2.5 mg Albuterol/Ipratropium (Duoneb) 3 ml NEB Q6HRT FITO Last Admin: 01/21/17 07:25 Dose: 3 ml Amlodipine Besylate (Norvasc) 5 mg PO DAILY [facility] Last Admin: 01/21/17 08:57 Dose: 5 mg Calcium Carbonate/Glycine (Tums) 500 mg CHEWED BID@0830,1230 [facility] Last Admin: 01/21/17 08:07 Dose: 500 mg Carisoprodol (Soma) 350 mg PO QIDP PRN PRN Reason: Muscle Spasm Last Admin: 01/21/17 08:07 Dose: 350 mg Diagnostic Test (Pha) (Accu-Chek) 1 each FS ACHS [facility] Last Admin: 01/21/17 08:06 Dose: 1 each Enoxaparin Sodium (Lovenox) 40 mg SQ DAILY [facility] Last Admin: 01/21/17 08:56 Dose: 40 mg Gabapentin (Neurontin) 300 mg PO BID [facility] Last Admin: 01/21/17 08:57 Dose: 300 mg Hydrochlorothiazide (Oretic) 12.5 mg PO DAILY [facility] Last Admin: 01/21/17 08:57 Dose: 12.5 mg Ceftriaxone Sodium 1 gm/ (Dextrose) 50 mls @ 100 mls/hr IV DAILY [facility] Last Admin: 01/21/17 09:02 Dose: 100 mls/hr Insulin Glargine (Lantus) 10 unit SQ [facility] Insulin Human Lispro (Humalog) 0 unit SQ [facility] PRN Reason: Protocol Last Admin: 01/21/17 08:55 Dose: 6 unit [facility]othy[facility] Last Admin: 01/21/17 08:07 Dose: 100 mcg Lisinopril (Zestril) 5 mg PO BID [facility] Last Admin: 01/21/17 08:57 Dose: 5 mg Lorazepam (Ativan) 0.5 mg IV Q2HP PRN PRN Reason: ANXIETY/SEDATION [facility] Last Admin: 01/21/17 08:07 Dose: 500 mg Methylprednisolone Sodium Succinate (Solu-Medrol) 62.5 mg IV Q12 [facility] Last Admin: 01/21/17 08:58 Dose: 62.5 mg Montelukast Sodium (Singular) 10 mg PO [facility] Last Admin: 01/20/17 20:10 Dose: 10 mg Morphine Sulfate (Morphine) 1 mg IV Q2HP PRN PRN Reason: Shortness Of Breath Ondansetron HCl (Zofran) 4 mg IV Q4HP PRN PRN Reason: Nausea And Vomiting Pantoprazole Sodium (Protonix) 40 mg PO QAMAC [facility] Last Admin: 01/21/17 08:07 Dose: 40 mg Paroxetine HCl (Paxil) 20 mg PO DAILY [facility] Last Admin: 01/21/17 09:00 Dose: 20 mg Polyethylene Glycol (Miralax) 17 gm PO DAILY [facility] Last Admin: 01/21/17 08:57 Dose: Not Given Sitagliptin Phosphate (Januvia) 50 mg PO DAILY [facility] Last Admin: 01/21/17 08:56 Dose: 50 mg Vitamin D (Vitamin D3) 1,000 unit PO BID [facility] Last Admin: 01/21/17 08:57 Dose: 1,000 unit Medical - PN: A/P - Time Spent With Patient Total time spent is greater than 50% in coordination of care (as documented) at patient's floor/unit and/or counseling patient: Greater than 35 minutes (1) SIRS (systemic inflammatory response syndrome) Status: Acute Current Visit: Yes (2) CHF (congestive heart failure) Status: Acute Current Visit: Yes (3) Acute on chronic respiratory failure with hypoxemia Status: Acute Current Visit: No (4) COPD (chronic obstructive pulmonary disease) Status: Acute Current Visit: No (5) Diabetes Status: Chronic Current Visit: No (6) Tobacco abuse disorder Status: Chronic Current Visit: No - Narrative A/P Narrative: #1. Pulmonary. Acute on chronic respiratory failure, with hypoxia. She appeared to have a COPD exacerbation, but today's chest x-ray also show shows possible early right base infiltrate. BNP was also elevated on admission, and chest x-ray suggestive of mild CHF. She was given 1 dose of Lasix, which she thinks did help with her breathing. She just had an echocardiogram about 2 weeks ago over at [facility], that looked okay. -Clinically she does look better today. She seems to be in less distress, but white blood cell count is climbing, and chest x-ray does show possible infiltrate.. -Admitted to telemetry for close monitoring. -Continue oxygen, bronchodilators, pulmonary toilet. -Blood and urine cultures. -Sputum culture if available. -Covered for possible community-acquired pneumonia, with Rocephin and Zithromax. She was also hospitalized earlier this month, so she will be covered with vancomycin as well. -IV steroids. -Lactic acid improved. -D-dimer is elevated a bit. I discussed possible CT angiogram with the patient , but since she is responding to treatment for COPD and pneumonia, we have elected to wait on that. -Records from [facility] indicated recent discharge on January 02, 2017 after acute on chronic respiratory failure. She was sent home on Levaquin and duo nebs, etc. Also prednisone 40 mg a day. Echocardiogram there showed normal systolic function with an ejection fraction of 55%, moderate LVH. Mild mitral annular calcification. #2. Tobacco abuse. Discussed that she should once again consider quitting smoking. -NicoDerm patch. 3. DVT prophylaxis: Subcu heparin. 4. CODE STATUS: Full code. Patient states that at this time she think she would still want everything done. Her older sister is in the room with her, and would act as her POA. 5. Cardiac. -The patient did diurese somewhat overnight, and does feel a bit better today. Recheck chest x-ray in the morning. Consider echocardiogram. -History of hypertension. This is better controlled today. Lisinopril is being added back. I also added low-dose HCTZ today, as both of these might help any potential underlying heart failure issues. . She was complaining loudly about wanting a caffeinated Pepsi yesterday, so perhaps caffeine and/or nicotine withdrawal is playing a role. There is also some confusion about which medication she is actually taking at home. She was previously on lisinopril, but it look like [facility] discharged her just on amlodipine. I will add back lisinopril today, as this should help both with blood pressure and with her ankle edema. 6. Osteoporosis and history of compression fractures. She should be on calcium plus vitamin D, at a minimum. 7. Endocrine. -Type 2 diabetes. Glucose today ranging from 200-335. Yesterday, because the patient was insistent, I told her she could drink 1 Pepsi. Apparently she abuses that privilege, and drink between 6 and 12 Pepsi' s last night. Glucose is quite high today. I had a very firm discussion with her today about needing her to not do things that directly contradict the treatment we are giving her. We discussed that one her blood sugar is high, it acts like a diuretic, and increases urination frequency, which apparently is increasing her risk for falls. We discussed that uncontrolled glucose compromises her overall health care. We also discussed that it is particularly bad to take an extra sugar when she is also taking steroids. Continue Januvia and metformin. Accu-Cheks and sliding scale insulin coverage. Continue lisinopril. It is not clear why patient is not on a statin and aspirin as well. Medication list from [facility] has a lot of discrepancies between the last list here. Nursing is trying to clarify her actual current list.. 8. Neurologic. History of neuropathy. Continue gabapentin. #9. Psychiatric. I do wonder about underlying depression. This patient seems to understand that when she goes home and smokes and drinks Pepsi all day, that it worsens her lung disease and her diabetes control. I specifically asked her today if she is suicidal, and if that is why she is ignoring what she knows is best for her health. She denies wanting to end her life, and says she will try harder to do what is right for her health. -Contact PCP office tomorrow, if they are open, to try to further discrepancies between our medication list and the [facility] discharge medication list. Approximately 40 minutes was spent today, reviewing patient's test results, interviewing and examining her, having a discussion with her about poor health habits, reviewing plan of care with nursing, and writing orders Medical - PN: Qual - VTE Deep Vein Thrombosis/Pulmonary Embolism Present on Admission: No
[2017-01-21] MEDS ORDERED: VANCOMYCIN PER PHARMACY IV SCH (11:32)
[2017-01-21] MEDS: NICOTINE 14 MG PATCH TOPICAL SCH (12:11)
[2017-01-21] MEDS: VANCOMYCIN 1,000 MG in 0.9 % SODIUM CHLORIDE 250 ML IV SCH (12:11)
[2017-01-21] MEDS: ALBUTEROL SULFATE 2.5 MG/3 ML NEBULIZER NEB PRN (16:12)
[2017-01-21] MEDS: MONTELUKAST 10 MG TABLET PO SCH (20:17)
[2017-01-21] MEDS ORDERED: INSULIN GLARGINE, HUMAN 1 UNIT/0.01 ML SQ SCH (21:00)
[2017-01-22] MEDS: IPRATROPIUM/ALBUTEROL 3 ML AMPUL.NEB NEB SCH ×4 (00:23→19:33)
[2017-01-22] MEDS: HYDROCODONE/APAP 7.5/325MG TABLET PO PRN ×4 (00:36→21:03)
[2017-01-22 05:44] LABS: Basophils # (Auto) 0 K/mcL (0.0-0.3); Basophils % (Auto) 0 % (0.0-2.0); Eosinophils # (Auto) 0.1 K/mcL (0.0-0.7); Eosinophils % (Auto) 0.4 % (0.0-7.0); Granulocytes % (Auto) 94.4 % (38.0-78.0); Lymphocytes # (Auto) 0.5 K/mcL (1.5-4.8); Lymphocytes % (Auto) 3.7 % (15.5-49.0); Mean Corpuscular Hemoglobin 30.6 pg (26.0-34.0); Monocytes # (Auto) 0.2 K/mcL (0.1-0.9); Monocytes % (Auto) 1.5 % (1.0-12.0); Platelet Count 418 K/mcL (140-440); RBC 3.56 M/mcL (4.00-5.20); Red Cell Distribution Width 13.5 % (11.5-14.5)
[2017-01-22 06:12] LABS: ALT/SGPT 9 U/l (0-40); Albumin 3.3 gm/dL (3.2-5.2); Albumin/Globulin Ratio 1.4 (1.0-2.3); Alkaline Phosphatase 76 U/L (39-117); Bilirubin,Direct < 0.2 mg/dL (0.0-0.3); Blood Urea Nitrogen 42 mg/dl (8-23); Gamma Glutamyl Transpeptidase 17 U/L (5-36); Uric Acid 6.2 mg/dL (2.5-8.0)
[2017-01-22] MEDS: LEVOTHYROXINE 100 MCG TABLET PO SCH (07:44)
[2017-01-22] MEDS: PANTOPRAZOLE 40 MG PACKET PO SCH (07:44)
[2017-01-22] MEDS: INSULIN LISPRO 1 UNIT/0.01 ML UNIT SQ SCH ×4 (07:44→21:02)
[2017-01-22] MEDS: metFORMIN 500 MG TABLET PO SCH ×2 (07:44→17:15)
[2017-01-22] MEDS: CALCIUM CARBONATE 500 MG TAB.CHEW CHEWED SCH ×2 (08:47→12:28)
[2017-01-22] MEDS: POLYETHYLENE GLYCOL 3350 17 GM PACKET PO SCH (08:47)
[2017-01-22] MEDS: cefTRIAXone 1 GM in DEXTROSE 5% IN WATER 50 ML IV SCH (08:47)
[2017-01-22] MEDS: methylPREDNISolone SOD SUCC 125 MG/2 ML VIAL IV SCH (08:47)
[2017-01-22] MEDS: amLODIPine 5 MG TABLET PO SCH (08:48)
[2017-01-22] MEDS: PARoxetine 20 MG TABLET PO SCH (08:48)
[2017-01-22] MEDS: HYDROCHLOROTHIAZIDE 12.5 MG CAPSULE PO SCH (08:48)
[2017-01-22] MEDS: LISINOPRIL 5 MG TABLET PO SCH ×2 (08:48→21:03)
[2017-01-22] MEDS: sitaGLIPtin 50 MG TABLET PO SCH (08:48)
[2017-01-22] MEDS: GABAPENTIN 300 MG CAPSULE PO SCH ×2 (08:48→21:03)
[2017-01-22] MEDS: VITAMIN D3 1,000 UNIT TABLET PO SCH ×2 (08:48→21:03)
[2017-01-22] MEDS: ENOXAPARIN 40 MG/0.4 ML SYRINGE SQ SCH (08:49)
[2017-01-22] MEDS: CARISOPRODOL 350 MG TABLET PO PRN ×3 (09:05→21:03)
[2017-01-22] MEDS: VANCOMYCIN 1,000 MG in 0.9 % SODIUM CHLORIDE 250 ML IV SCH (09:30)
[2017-01-22] MEDS: NICOTINE 14 MG PATCH TOPICAL SCH (10:17)
[2017-01-22] MEDS ORDERED: FUROSEMIDE 40 MG/4 ML VIAL IV ONE (14:22)
--- NOTE | 2017-01-22 14:28 | Internal Med Progress Note ---
Medical - PN: Subj Patient information: Note initiated : 01/22/17 at 2:26 pm Service Date, if different from initiated Date: [] Patient: Zakia Gibson a 62 y/o F admitted on 01/19/17 for Shortness of Breath/COPD Exacerbation. Chief Complaint: [] Interval history: January 19, 2017: History of present illness: Ms. Gibson is a 62 year old F This patient has a long-standing history of COPD. She has been admitted quite a few times for respiratory failure. She was in our emergency room on December 29, and transferred over to [facility] with respiratory failure. She says she was there for about 5 days and then was discharged home on prednisone and antibiotics. She thinks she did okay for a week or so, and then developed increasing shortness of breath again 5 or 6 days ago. She did see her primary care physician about 2 days ago who put her on prednisone 60 mg a day, and continued an antibiotic that she had already been on, the name of which she cannot remember. Today she presented to the emergency room because she just could not catch her breath. She is on home oxygen. She has had a mild headache , and has a chronic cough which is not much different than usual. She says she has only minimal sinus congestion. She was a little bit nauseated today. She does have intermittent diarrhea. Otherwise, she denies known fever or chills, dizziness, new eye or ear symptoms. She denies sore throat, chest pain or palpitations, abdominal pain, nausea or vomiting, dysuria. She denies swollen glands. ER evaluation showed marked leukocytosis, tachycardia, tachypnea, hypoxia. Patient was treated with IV steroids, continuous nebs, theophylline, Ativan, morphine, but really showed no improvement. Patient is now admitted for further workup and treatment. January 20: -The patient had a reasonably good night. She remains tachycardic, but tachypnea is improved. Blood pressures are running a bit high. Metcalf catheter was placed, as I gave her IV Lasix for possible CHF. She did diurese about 500 mL overnight. White blood cell count is improved today, and lactic acid is back to normal. Blood sugars are running quite high, presumably due to the steroids. -The patient says she is feeling better today. She is sitting up in a chair. She notes she does much better with an oxygen mask and a nasal cannula, as she tends to breathe through her mouth. She is quite annoyed by her Metcalf catheter , and would like that discontinued. She is demanding that we give her a Pepsi, and not diet. She says she understands that it is not good for her diabetes or her kidneys, but she wants it anyway. Shortness of breath overall is improved, as is her cough. Otherwise, she denies fever or chills, sore throat, chest pain or palpitations, abdominal pain nausea or vomiting, diarrhea. January 21: -Nursing tells me that the patient's family brought her Pepsi last night, and that she drank between 6 and 12. Blood glucose is greater than 300 this morning. -The patient is feeling better today, but she was getting up this morning to go to the bathroom, and says she lost her balance, ends locally fell to the floor, rather in slow motion. Respiratory therapy was nearby. The patient did not appear to be injured. -She says her breathing is definitely better today. She denies fever or chills , chest pain or palpitations, GI or symptoms. January 22: patient seen examined, no acute overnight events, was lying comfortably in bed, denies any acute issues. She notes she feels better and her breathing is more than 50% better Her WBC count is trending down, she remains on oxygen, but is also using it at home as per her. She denies any new cough, has sob on activity, no headache, dizziness, no abdominal pain, nausea or vomiting Smoking cessation reinforced. Glucose still high, insulin adjusted, due to poor diet as well as steroids. microbiology negative growth so far. Pertinent ROS: Denies headache, dizziness Denies chest pain, palpitations cough present improving, sob improving. Denies abdominal pain, nausea or vomiting. - Constitutional Vitals: Vital Signs Temp Pulse Resp BP Pulse Ox 97.6 F 93 H 18 162/87 97 01/22/17 12:00 01/22/17 13:18 01/22/17 13:18 01/22/17 12:00 01/22/17 12:00 Period Temp Pulse Resp BP Sys/Gutierrez Pulse Ox Last 24 Hr 97.3 F-98.5 F 85-105 16-24 140-181/70-95 90-97 Intake and Output 01/22/17 01/22/17 01/22/17 05:59 13:59 21:59 Intake Total 600 / 600 417 / 417 Balance 600 / 600 417 / 417 Intake & Output: Intake & Output 01/22/17 01/22/17 01/22/17 05:59 13:59 21:59 Intake Total 600 / 600 417 / 417 Balance 600 / 600 417 / 417 Intake: IV 297 / 297 Vancomycin 1,000 mg In 250 / 250 Sodium Chloride 0.9% 250 ml @ 250 mls/hr IV DAILY [facility] Rx#:[id number] Rocephin 1 gm In Dextrose 47 / 47 5% in Water 50 ml @ 100 mls/hr IV DAILY [facility] Rx#: [id number] Oral 600 / 600 120 / 120 Other: Meal Lunch Percent of Meal Consumed 100% Feeding Ability Independent # Voids 3 1 # Bowel Movements 1 Exam: Constitutional; Afebrile, cooperative, alert, not in distress. Eyes- No icterus, , No periorbital swelling Ears- Ext ear normal, hearing normal to conversation. Neck- Midline trachea, supple Respiratory system: Air Entry equal on both sides, No crackles or wheezing, no rhonchi. Prolonged Resp phase. CVS- Rate rhythm regular, S1,S2 heard, no gallop, no rub. Abdomen- Soft nontender abdomen, no organomegaly, no tenderness, no guarding or rigidity, [employer]- AOOx3, moving all extremities, no gross focal deficit noted. Medical - PN: Obj Da - Labs CBC & Chem 7: 01/22/17 03:50 01/22/17 03:50 Labs: Abnormal Lab Results 01/22/17 01/22/17 01/21/17 03:50 03:50 03:55 WBC 13.8 H RBC 3.56 L Hgb 10.9 L Hct 33.1 L MPV 7.2 L Gran % 94.4 H Lymph % (Auto) 3.7 L [place] % (Auto) Gran # 13.0 H Lymph # (Auto) 0.5 L D-Dimer VBG Lactic Acid Chloride 95 L Carbon Dioxide 33 H 34 H BUN 42 H 33 H Glucose 292 H 335 H Phosphorus 2.6 L Total Protein 5.6 L 5.8 L 01/21/17 01/20/17 01/20/17 03:55 03:40 03:40 WBC 14.8 H 12.0 H RBC 3.48 L 3.39 L Hgb 10.5 L 10.4 L Hct 32.1 L 31.4 L MPV 7.0 L 7.1 L Gran % 95.1 H 96.2 H Lymph % (Auto) 4.2 L 2.8 L [place] % (Auto) 0.6 L 0.4 L Gran # 14.0 H 11.6 H Lymph # (Auto) 0.6 L 0.3 L D-Dimer VBG Lactic Acid Chloride 93 L Carbon Dioxide 31 H BUN Glucose 367 H Phosphorus Total Protein 01/19/17 01/19/17 22:20 22:00 WBC RBC Hgb Hct MPV Gran % Lymph % (Auto) [place] % (Auto) Gran # Lymph # (Auto) D-Dimer 0.57 H VBG Lactic Acid 4.4 H* Chloride Carbon Dioxide BUN Glucose Phosphorus Total Protein Meds: Medications Acetaminophen (Tylenol) 650 mg PO Q6HP PRN PRN Reason: PAIN/FEVER > 101 Hydrocodone Bitart/Acetaminophen ([place] 7.5/325mg) 2 tab PO Q4-6HP PRN PRN Reason: Pain Last Admin: 01/22/17 14:10 Dose: 2 tab Albuterol Sulfate (Ventolin) 2.5 mg NEB Q4HRT PRN PRN Reason: Shortness Of Breath Or Wheezing Last Admin: 01/21/17 16:12 Dose: 2.5 mg Albuterol/Ipratropium (Duoneb) 3 ml NEB Q6HRT [facility] Last Admin: 01/22/17 13:17 Dose: 3 ml Amlodipine Besylate (Norvasc) 5 mg PO DAILY [facility] Last Admin: 01/22/17 08:48 Dose: 5 mg Calcium Carbonate/Glycine (Tums) 500 mg CHEWED BID@0830,1230 [facility] Last Admin: 01/22/17 12:28 Dose: 500 mg Carisoprodol (Soma) 350 mg PO QIDP PRN PRN Reason: Muscle Spasm Last Admin: 01/22/17 14:10 Dose: 350 mg Diagnostic Test (Pha) (Accu-Chek) 1 each FS ACHS [facility] Last Admin: 01/22/17 11:33 Dose: 1 each Enoxaparin Sodium (Lovenox) 40 mg SQ DAILY [facility] Last Admin: 01/22/17 08:49 Dose: 40 mg Furosemide (Lasix) 40 mg IV ONCE ONE Stop: 01/22/17 14:23 Gabapentin (Neurontin) 300 mg PO BID [facility] Last Admin: 01/22/17 08:48 Dose: 300 mg Hydrochlorothiazide (Oretic) 12.5 mg PO DAILY [facility] Last Admin: 01/22/17 08:48 Dose: 12.5 mg Ceftriaxone Sodium 1 gm/ (Dextrose) 50 mls @ 100 mls/hr IV DAILY [facility] Last Infusion: 01/22/17 09:15 Dose: 0 mls/hr Vancomycin HCl 1,000 mg/ (Sodium Chloride) 250 mls @ 250 mls/hr IV DAILY [facility] Last Infusion: 01/22/17 11:06 Dose: Infused Insulin Glargine (Lantus) 15 unit SQ [facility] Insulin Human Lispro (Humalog) 0 unit SQ [facility] PRN Reason: Protocol Levothyroxine Sodium (Synthroid) 100 mcg PO [facility] Last Admin: 01/22/17 07:44 Dose: 100 mcg Lisinopril (Zestril) 5 mg PO BID [facility] Last Admin: 01/22/17 08:48 Dose: 5 mg Lorazepam (Ativan) 0.5 mg IV Q2HP PRN PRN Reason: ANXIETY/SEDATION [facility]) [facility] Last Admin: 01/22/17 07:44 Dose: 500 mg Montelukast Sodium (Singular) 10 mg PO [facility] Last Admin: 01/21/17 20:17 Dose: 10 mg Morphine Sulfate (Morphine) 1 mg IV Q2HP PRN PRN Reason: Shortness Of Breath Nicotine (Nicoderm) 14 mg TOPICAL DAILY@1000 [facility] Last Admin: 01/22/17 10:17 Dose: 14 mg Ondansetron HCl (Zofran) 4 mg IV Q4HP PRN PRN Reason: Nausea And Vomiting Pantoprazole [facility] ([facility]ix) [facility] Last Admin: 01/22/17 07:44 Dose: 40 mg Paroxetine HCl (Paxil) 20 mg PO DAILY [facility] Last Admin: 01/22/17 08:48 Dose: 20 mg Polyethylene Glycol (Miralax) 17 gm PO DAILY [facility] Last Admin: 01/22/17 08:47 Dose: 17 gm Prednisone (Prednisone) [address] [facility] Sitagliptin Phosphate (Januvia) 50 mg PO DAILY [facility] Last Admin: 01/22/17 08:48 Dose: 50 mg Vancomycin HCl (Vancomycin Per Pharmacy) 1 order IV UD [facility] Vitamin D (Vitamin D3) 1,000 unit PO BID [facility] Last Admin: 01/22/17 08:48 Dose: 1,000 unit Medical - PN: A/P - Time Spent With Patient Total time spent is greater than 50% in coordination of care (as documented) at patient's floor/unit and/or counseling patient: - Narrative A/P Narrative: A/P COPD exacerbation: On treatment with abx, duonebs and steroids, clinically improving, feels much better, Pneumonia: Healthcare associatd PNA based on recent hospitalization. She is presently on rocephin, zithromax, and vancomycin. She is clinically improving therefore will not change ABX, should have been on zosyn or cefepime for HCAP, but since micro is neg so far, and pt clinically responding, hold off on changing, Will change if patient deteriorates. Mild CHF: IV lasix given once, I will give another dose today, Patient is positive 3100ml since admission, Monitor Acute on Chr resp failure: ON home oxygen, continue same, patient seems to be back to baseline oxygen need. Uncontrolled Diabletes with hyperglycemia: glucose high, increase dose of lantus to 15 units, change sliding scale protocol to med scale, monitor. Pt is non compliant with diet, aslo on steroids, will resume home meds on d/c, will likely benefit from higher dose of januvia and metformin. HTN: BP on the higher end, on hctz and lisinopril, continue same, lasix should help. try to obtain accurate med list. Neuropathy: On Gabapentin, continue same for now, DVT hep sq Diet diabetic Full code Medical - PN: Qual - VTE Deep Vein Thrombosis/Pulmonary Embolism Present on Admission: No
[2017-01-22] MEDS: MONTELUKAST 10 MG TABLET PO SCH (21:02)
[2017-01-22] MEDS: INSULIN GLARGINE, HUMAN 1 UNIT/0.01 ML SQ SCH (21:04)
[2017-01-23] MEDS: IPRATROPIUM/ALBUTEROL 3 ML AMPUL.NEB NEB SCH ×5 (01:10→19:45)
[2017-01-23] MEDS: HYDROCODONE/APAP 7.5/325MG TABLET PO PRN ×4 (04:27→21:24)
[2017-01-23] MEDS: CARISOPRODOL 350 MG TABLET PO PRN ×3 (04:27→17:07)
[2017-01-23 05:20] LABS: Basophils # (Auto) 0 K/mcL (0.0-0.3); Basophils % (Auto) 0.2 % (0.0-2.0); Eosinophils # (Auto) 0.1 K/mcL (0.0-0.7); Eosinophils % (Auto) 0.9 % (0.0-7.0); Lymphocytes # (Auto) 1.9 K/mcL (1.5-4.8); Lymphocytes % (Auto) 15.6 % (15.5-49.0); Mean Cell Volume 91.6 fL (80.0-100.0); Mean Corpuscular HGB Conc 33.7 g/dL (31.0-36.0); Mean Corpuscular Hemoglobin 30.9 pg (26.0-34.0); Monocytes # (Auto) 0.7 K/mcL (0.1-0.9); Monocytes % (Auto) 5.3 % (1.0-12.0); Platelet Count 448 K/mcL (140-440); RBC 3.78 M/mcL (4.00-5.20); Red Cell Distribution Width 13.6 % (11.5-14.5)
[2017-01-23 05:43] LABS: ALT/SGPT 7 U/l (0-40); Albumin 3.3 gm/dL (3.2-5.2); Albumin/Globulin Ratio 1.4 (1.0-2.3); Alkaline Phosphatase 72 U/L (39-117); Bilirubin,Direct < 0.2 mg/dL (0.0-0.3); Blood Urea Nitrogen 38 mg/dl (8-23); Gamma Glutamyl Transpeptidase 17 U/L (5-36); Uric Acid 6.8 mg/dL (2.5-8.0)
[2017-01-23] MEDS: INSULIN LISPRO 1 UNIT/0.01 ML UNIT SQ SCH ×4 (07:59→20:30)
[2017-01-23] MEDS: metFORMIN 500 MG TABLET PO SCH ×2 (07:59→17:07)
[2017-01-23] MEDS: LEVOTHYROXINE 100 MCG TABLET PO SCH (07:59)
[2017-01-23] MEDS: PANTOPRAZOLE 40 MG PACKET PO SCH (07:59)
[2017-01-23] MEDS: POLYETHYLENE GLYCOL 3350 17 GM PACKET PO SCH (08:27)
[2017-01-23] MEDS: VITAMIN D3 1,000 UNIT TABLET PO SCH ×2 (08:31→20:22)
[2017-01-23] MEDS: LISINOPRIL 5 MG TABLET PO SCH ×2 (08:31→20:22)
[2017-01-23] MEDS: amLODIPine 5 MG TABLET PO SCH (08:31)
[2017-01-23] MEDS: HYDROCHLOROTHIAZIDE 12.5 MG CAPSULE PO SCH (08:31)
[2017-01-23] MEDS: CALCIUM CARBONATE 500 MG TAB.CHEW CHEWED SCH ×2 (08:31→17:07)
[2017-01-23] MEDS: PARoxetine 20 MG TABLET PO SCH (08:31)
[2017-01-23] MEDS: sitaGLIPtin 50 MG TABLET PO SCH (08:31)
[2017-01-23] MEDS: GABAPENTIN 300 MG CAPSULE PO SCH ×2 (08:31→20:22)
[2017-01-23] MEDS: predniSONE 20 MG TABLET PO SCH (08:31)
[2017-01-23] MEDS: ENOXAPARIN 40 MG/0.4 ML SYRINGE SQ SCH (08:32)
[2017-01-23] MEDS: VANCOMYCIN 1,000 MG in 0.9 % SODIUM CHLORIDE 250 ML IV SCH (09:53)
[2017-01-23] MEDS: cefTRIAXone 1 GM in DEXTROSE 5% IN WATER 50 ML IV SCH (10:06)
[2017-01-23] MEDS: VANCOMYCIN 750 MG in 0.9 % SODIUM CHLORIDE 250 ML IV SCH ×2 (10:07→20:05)
--- NOTE | 2017-01-23 14:31 | Internal Med Progress Note ---
Medical - PN: Subj Patient information: Note initiated : 01/23/17 at 2:29 pm Service Date, if different from initiated Date: [] Patient: Zakia Gibson a 62 y/o F admitted on 01/19/17 for Shortness of Breath/COPD Exacerbation. Chief Complaint: [] Interval history: January 19, 2017: History of present illness: Ms. Gibson is a 62 year old F This patient has a long-standing history of COPD. She has been admitted quite a few times for respiratory failure. She was in our emergency room on December 29, and transferred over to [facility] with respiratory failure. She says she was there for about 5 days and then was discharged home on prednisone and antibiotics. She thinks she did okay for a week or so, and then developed increasing shortness of breath again 5 or 6 days ago. She did see her primary care physician about 2 days ago who put her on prednisone 60 mg a day, and continued an antibiotic that she had already been on, the name of which she cannot remember. Today she presented to the emergency room because she just could not catch her breath. She is on home oxygen. She has had a mild headache , and has a chronic cough which is not much different than usual. She says she has only minimal sinus congestion. She was a little bit nauseated today. She does have intermittent diarrhea. Otherwise, she denies known fever or chills, dizziness, new eye or ear symptoms. She denies sore throat, chest pain or palpitations, abdominal pain, nausea or vomiting, dysuria. She denies swollen glands. ER evaluation showed marked leukocytosis, tachycardia, tachypnea, hypoxia. Patient was treated with IV steroids, continuous nebs, theophylline, Ativan, morphine, but really showed no improvement. Patient is now admitted for further workup and treatment. January 20: -The patient had a reasonably good night. She remains tachycardic, but tachypnea is improved. Blood pressures are running a bit high. Metcalf catheter was placed, as I gave her IV Lasix for possible CHF. She did diurese about 500 mL overnight. White blood cell count is improved today, and lactic acid is back to normal. Blood sugars are running quite high, presumably due to the steroids. -The patient says she is feeling better today. She is sitting up in a chair. She notes she does much better with an oxygen mask and a nasal cannula, as she tends to breathe through her mouth. She is quite annoyed by her Metcalf catheter , and would like that discontinued. She is demanding that we give her a Pepsi, and not diet. She says she understands that it is not good for her diabetes or her kidneys, but she wants it anyway. Shortness of breath overall is improved, as is her cough. Otherwise, she denies fever or chills, sore throat, chest pain or palpitations, abdominal pain nausea or vomiting, diarrhea. January 21: -Nursing tells me that the patient's family brought her Pepsi last night, and that she drank between 6 and 12. Blood glucose is greater than 300 this morning. -The patient is feeling better today, but she was getting up this morning to go to the bathroom, and says she lost her balance, ends locally fell to the floor, rather in slow motion. Respiratory therapy was nearby. The patient did not appear to be injured. -She says her breathing is definitely better today. She denies fever or chills , chest pain or palpitations, GI or symptoms. January 22: patient seen examined, no acute overnight events, was lying comfortably in bed, denies any acute issues. She notes she feels better and her breathing is more than 50% better Her WBC count is trending down, she remains on oxygen, but is also using it at home as per her. She denies any new cough, has sob on activity, no headache, dizziness, no abdominal pain, nausea or vomiting Smoking cessation reinforced. Glucose still high, insulin adjusted, due to poor diet as well as steroids. microbiology negative growth so far. January 23 The patient seen examined, no acute overnight events,glucose high but better than before, labs improving, Pt denies any new complaints, was sitting comfortably in the chair had been refusing therapy so far, but notes her sister wants her to have therapy. I explained to her that I cannot order therapy unless she allows her self to be evaluated by PT here. She had been declining to see PT so far. The patient agreed today to be evaluated. and was noted to be 1person assist. Pertinent ROS: Denies headache, dizziness Denies chest pain, palpitations Denies cough or shortness of breath Denies abdominal pain, nausea or vomiting. - Constitutional Vitals: Vital Signs Temp Pulse Resp BP Pulse Ox 96.8 F L 102 H 16 136/89 90 01/23/17 12:00 01/23/17 13:41 01/23/17 13:41 01/23/17 12:00 01/23/17 13:39 Period Temp Pulse Resp BP Sys/Gutierrez Pulse Ox Last 24 Hr 96.7 F-99.8 F 88-102 16-18 136-164/69-89 90-97 Intake and Output 01/23/17 01/23/17 01/23/17 05:59 13:59 21:59 Intake Total 560 / 560 0 / 0 Balance 560 / 560 0 / 0 Intake & Output: Intake & Output 01/23/17 01/23/17 01/23/17 05:59 13:59 21:59 Intake Total 560 / 560 0 / 0 Balance 560 / 560 0 / 0 Intake: IV 0 / 0 Rocephin 1 gm In Dextrose 0 / 0 5% in Water 50 ml @ 100 mls/hr IV DAILY [facility] Rx#: [id number] Oral 560 / 560 Other: Meal Primo crackers Percent of Meal Consumed 100% Feeding Ability Independent # Voids 1 Exam: Constitutional; Afebrile, cooperative, alert, not in distress. Eyes- No icterus, , No periorbital swelling Ears- Ext ear normal, hearing normal to conversation. Neck- Midline trachea, supple Respiratory system: Air Entry equal on both sides, No crackles or wheezing, no rhonchi. CVS- Rate rhythm regular, S1,S2 heard, no gallop, no rub. Abdomen- Soft nontender abdomen, no organomegaly, no tenderness, no guarding or rigidity, CLINICAL PHARMACOLOGIST- AOOx3, moving all extremities, no gross focal deficit noted. Medical - PN: Obj Da - Labs CBC & Chem 7: 01/23/17 04:17 01/23/17 04:17 Labs: Abnormal Lab Results 01/23/17 01/23/17 01/22/17 04:17 04:17 03:50 WBC 12.4 H RBC 3.78 L Hgb 11.7 L Hct 34.6 L Plt Count 448 H MPV 7.0 L Gran % Lymph % (Auto) [place] % (Auto) Gran # 9.6 H Lymph # (Auto) Chloride Carbon Dioxide 40 H 33 H Anion Gap 5.0 L BUN 38 H 42 H Glucose 168 H 292 H Phosphorus 2.6 L Total Protein 5.7 L 5.6 L Triglycerides 195 H 01/22/17 01/21/17 01/21/17 03:50 03:55 03:55 WBC 13.8 H 14.8 H RBC 3.56 L 3.48 L Hgb 10.9 L 10.5 L Hct 33.1 L 32.1 L Plt Count MPV 7.2 L 7.0 L Gran % 94.4 H 95.1 H Lymph % (Auto) 3.7 L 4.2 L [place] % (Auto) 0.6 L Gran # 13.0 H 14.0 H Lymph # (Auto) 0.5 L 0.6 L Chloride 95 L Carbon Dioxide 34 H Anion Gap BUN 33 H Glucose 335 H Phosphorus Total Protein 5.8 L Triglycerides Meds: Medications Acetaminophen (Tylenol) 650 mg PO Q6HP PRN PRN Reason: PAIN/FEVER > 101 Hydrocodone Bitart/Acetaminophen ([place] 7.5/325mg) 2 tab PO Q4-6HP PRN PRN Reason: Pain Last Admin: 01/23/17 09:53 Dose: 2 tab Albuterol Sulfate (Ventolin) 2.5 mg NEB Q4HRT PRN PRN Reason: Shortness Of Breath Or Wheezing Last Admin: 01/21/17 16:12 Dose: 2.5 mg Albuterol/Ipratropium (Duoneb) 3 ml NEB Q6HRT [facility] Last Admin: 01/23/17 13:38 Dose: 3 ml Amlodipine Besylate (Norvasc) 5 mg PO DAILY [facility] Last Admin: 01/23/17 08:31 Dose: 5 mg Calcium Carbonate/Glycine (Tums) 500 mg CHEWED BID@0830,1230 [facility] Last Admin: 01/23/17 08:31 Dose: 500 mg Carisoprodol (Soma) 350 mg PO QIDP PRN PRN Reason: Muscle Spasm Last Admin: 01/23/17 09:54 Dose: 350 mg Diagnostic Test (Pha) (Accu-Chek) 1 each FS ACHS [facility] Last Admin: 01/23/17 11:59 Dose: 1 each Enoxaparin Sodium (Lovenox) 40 mg SQ DAILY [facility] Last Admin: 01/23/17 08:32 Dose: 40 mg Gabapentin (Neurontin) 300 mg PO BID [facility] Last Admin: 01/23/17 08:31 Dose: 300 mg Hydrochlorothiazide (Oretic) 12.5 mg PO DAILY [facility] Last Admin: 01/23/17 08:31 Dose: 12.5 mg Ceftriaxone Sodium 1 gm/ (Dextrose) 50 mls @ 100 mls/hr IV DAILY [facility] Last Admin: 01/23/17 10:06 Dose: 100 mls/hr Vancomycin HCl 750 mg/ Sodium (Chloride) 250 mls @ 250 mls/hr IV Q12H [facility] Last Admin: 01/23/17 10:07 Dose: 250 mls/hr Insulin Glargine (Lantus) 15 unit SQ [facility] Last Admin: 01/22/17 21:04 Dose: 15 unit Insulin Human Lispro (Humalog) [address] [facility] PRN Reason: Protocol Last Admin: 01/23/17 11:58 Dose: 4 unit [facility]othy[facility]ine [facility]) [facility] Last Admin: 01/23/17 07:59 Dose: 100 mcg Lisinopril (Zestril) 5 mg PO BID [facility] Last Admin: 01/23/17 08:31 Dose: 5 mg Lorazepam (Ativan) 0.5 mg IV Q2HP PRN PRN Reason: ANXIETY/SEDATION Metformin [facility] (Glucophage) [facility] Montelukast Sodium (Singular) 10 mg PO [facility] Last Admin: 01/22/17 21:02 Dose: 10 mg Morphine Sulfate (Morphine) 1 mg IV Q2HP PRN PRN Reason: Shortness Of Breath Nicotine (Nicoderm) 14 mg TOPICAL DAILY@1000 [facility] Last Admin: 01/22/17 10:17 Dose: 14 mg Ondansetron HCl (Zofran) 4 mg IV Q4HP PRN PRN Reason: Nausea And Vomiting Pantoprazole Sodium ([facility]ix) [facility] Last Admin: 01/23/17 07:59 Dose: 40 mg Paroxetine HCl (Paxil) 20 mg PO DAILY [facility] Last Admin: 01/23/17 08:31 Dose: 20 mg Polyethylene Glycol (Miralax) 17 gm PO DAILY [facility] Last Admin: 01/23/17 08:27 Dose: 17 gm [facility]) [facility] Last Admin: 01/23/17 08:31 Dose: 40 mg Sitagliptin Phosphate (Januvia) 50 mg PO DAILY [facility] Last Admin: 01/23/17 08:31 Dose: 50 mg Vancomycin HCl (Vancomycin Per Pharmacy) 1 order IV UD [facility] Vitamin D (Vitamin D3) 1,000 unit PO BID [facility] Last Admin: 01/23/17 08:31 Dose: 1,000 unit Medical - PN: A/P - Time Spent With Patient Total time spent is greater than 50% in coordination of care (as documented) at patient's floor/unit and/or counseling patient: - Narrative A/P Narrative: A/P COPD exacerbation: On treatment with abx, duonebs and steroids, clinically improving no wheezing today, feels much better, Pneumonia: Healthcare associatd PNA based on recent hospitalization. She is presently on rocephin, zithromax, and vancomycin. improving clinically, today is Day 4 of antibiotics. Mild CHF: pt appears clinically euvolumic, monitor for now. Acute on Chr resp failure: ON home oxygen, continue same, patient seems to be back to baseline oxygen need. Uncontrolled Diabletes with hyperglycemia: glucose high, but improving, increase the dose of metfomin to 1gm bid, continue lantus and sliding scale insulin. HTN: BP on the higher end, on hctz and lisinopril, continue same, lasix should help. try to obtain accurate med list. Neuropathy: On Gabapentin, continue same for now, DVT hep sq Diet diabetic Full code Dispo: pt is one patient assist, needs ongoing PT, if she still needs help with transfers tomorrow, will see if we can find a SNF for rehab tomorrow. Continue PT for now. Medical - PN: Qual - VTE Deep Vein Thrombosis/Pulmonary Embolism Present on Admission: No
[2017-01-23] MEDS: NICOTINE 14 MG PATCH TOPICAL SCH (17:07)
[2017-01-23] MEDS: MONTELUKAST 10 MG TABLET PO SCH (20:22)
[2017-01-23] MEDS: INSULIN GLARGINE, HUMAN 1 UNIT/0.01 ML SQ SCH (20:30)
[2017-01-23] MEDS: ALBUTEROL SULFATE 2.5 MG/3 ML NEBULIZER NEB PRN (22:12)
[2017-01-24] MEDS: IPRATROPIUM/ALBUTEROL 3 ML AMPUL.NEB NEB SCH ×3 (00:48→13:36)
[2017-01-24] MEDS ORDERED: amLODIPine 5 MG TABLET PO SCH (07:23)
[2017-01-24] MEDS: PANTOPRAZOLE 40 MG PACKET PO SCH (07:50)
[2017-01-24] MEDS: LEVOTHYROXINE 100 MCG TABLET PO SCH (07:50)
[2017-01-24] MEDS: CALCIUM CARBONATE 500 MG TAB.CHEW CHEWED SCH ×2 (07:50→13:56)
[2017-01-24] MEDS: INSULIN LISPRO 1 UNIT/0.01 ML UNIT SQ SCH ×2 (07:51→11:57)
[2017-01-24] MEDS: LISINOPRIL 5 MG TABLET PO SCH (08:21)
[2017-01-24] MEDS: VITAMIN D3 1,000 UNIT TABLET PO SCH (08:22)
[2017-01-24] MEDS: GABAPENTIN 300 MG CAPSULE PO SCH (08:22)
[2017-01-24] MEDS: HYDROCHLOROTHIAZIDE 12.5 MG CAPSULE PO SCH (08:23)
[2017-01-24] MEDS: PARoxetine 20 MG TABLET PO SCH (08:23)
[2017-01-24] MEDS: metFORMIN 500 MG TABLET PO SCH (08:23)
[2017-01-24] MEDS: POLYETHYLENE GLYCOL 3350 17 GM PACKET PO SCH (08:24)
[2017-01-24] MEDS: HYDROCODONE/APAP 7.5/325MG TABLET PO PRN ×2 (08:24→13:54)
[2017-01-24] MEDS: predniSONE 20 MG TABLET PO SCH (08:24)
[2017-01-24] MEDS: CARISOPRODOL 350 MG TABLET PO PRN ×2 (08:25→14:11)
[2017-01-24] MEDS: ENOXAPARIN 40 MG/0.4 ML SYRINGE SQ SCH (08:25)
[2017-01-24] MEDS ORDERED: sitaGLIPtin 100 MG TABLET PO SCH (09:00)
[2017-01-24] MEDS: VANCOMYCIN 750 MG in 0.9 % SODIUM CHLORIDE 250 ML IV SCH (09:51)
[2017-01-24] MEDS: NICOTINE 14 MG PATCH TOPICAL SCH (09:52)
[2017-01-24] MEDS ORDERED: cefTRIAXone 1 GM in DEXTROSE 5% IN WATER 50 ML IV SCH (10:00)
--- NOTE | 2017-01-24 12:49 | Discharge Summary ---
Medical - DS: Prov Patient information: Note initiated : 01/24/17 at 12:39 pm Service Date, if different from initiated Date: [] Patient: Zakia Gibson 62 y/o F admitted on 01/19/17 for Shortness of Breath/COPD Exacerbation. Chief Complaint: [] Date of admission: 01/19/17 21:14 Discharge date: 01/24/17 Primary care physician: Jazmine Yao Admitting clinician: Ivelisse Brooks Discharging clinician: Josais Singh Medical - DS: Meds - Discharge Medications Prescriptions: Insulin Lispro [HumaLOG] See Protocol SQ ACHS #1 ml Levofloxacin [Levaquin] 750 mg PO DAILY #3 tablet metFORMIN [Glucophage] 1,000 mg PO BIDCC #60 tablet predniSONE [Prednisone] 40 mg PO QAMCC #38 tablet sitaGLIPtin [Januvia] 100 mg PO DAILY #30 tablet Active and Home Medications: Home Medications Albuterol Sulfate [Ventolin] 2 puff INH Q4HP PRN 08/15/16 [History Confirmed 10/06 Last Taken 01/18/17 2 PUFFS] Baclofen [Lioresal] 10 mg PO BID 08/15/16 [History Confirmed 01/22/17 Last Taken 01/18/17 09:00 10 mg.] Gabapentin [Neurontin] 300 mg PO BID 08/15/16 [History Confirmed 01/22/17 Last Taken 01/22/17 09:00 300 mg.] Potassium Chloride [Kdur] 20 meq PO BIDCC #15 tablet 10/02/16 [Rx Confirmed 10/06 Last Taken Unknown] metFORMIN [Glucophage] 500 mg PO BIDCC #60 tablet 11/21/16 [Rx Confirmed Last Taken 01/22/17 08:00] Azithromycin [Zithromax] 250 mg PO DAILY #6 tablet 12/23/16 [Rx Confirmed Last Taken 01/03/17 09:00 250 mg.] Lisinopril [Zestril] 10 mg PO DAILY #30 tablet 12/23/16 [Rx Confirmed 01/22/17 Last Taken Unknown] predniSONE [Deltasone] 40 mg PO DAILY #10 tablet 12/23/16 [Rx Confirmed Last Taken 01/19/17 08:00] sitaGLIPtin [Januvia] 50 mg PO DAILY 12/23/16 [History Confirmed 01/22/17 Last Taken 01/22/17 09:00 50 mg.] Bisacodyl [Dulcolax] 10 mg [place] DAILYP PRN 01/22/17 [History Confirmed 01/22/17 Last Taken Unknown] Budesonide [Pulmicort] 0.5 mg NEB Q12 01/22/17 [History Confirmed 01/22/17 Last Taken 01/18/17 0.5 MG.] Docusate Sodium [Colace] 100 mg PO BID 01/22/17 [History Confirmed 01/22/17 Last Taken 01/22/17 100 MG.] Ipratropium/Albuterol [Duoneb] 3 ml NEB TIDP PRN 01/22/17 [History Confirmed 11/06 Last Taken 01/18/17 0.5 MG.] Levothyroxine [Synthroid] 100 mcg PO DAILY 01/22/17 [History Confirmed 01/22/17 Last Taken 01/22/17 100 MCG] Montelukast [Singular] 10 mg PO HS 01/22/17 [History Confirmed 01/22/17 Last Taken 01/18/17 22:00 10 MG.] Omeprazole [PriLOSEC] 40 mg PO ACB 01/22/17 [History Confirmed 01/22/17 Last Taken 01/18/17 07:30 40 MG.] PARoxetine HCL [Paxil] 20 mg PO DAILY 01/22/17 [History Confirmed 01/22/17 Last Taken 01/22/17 20 MG.] Prochlorperazine (Pp) 10 mg PO Q6HP PRN 01/22/17 [History Confirmed 01/22/17 Last Taken Unknown] amLODIPine [Norvasc] 5 mg PO DAILY 01/22/17 [History Confirmed 01/23/17 Last Taken 01/18/17 5 MG.] Acetaminophen [Non-Aspirin] 325 - 650 mg PO Q4-6HP PRN 01/23/17 [History Confirmed 01/23/17 Last Taken Unknown] Polyethylene Glycol 3350 [Miralax] 17 gm PO DAILY 01/23/17 [History Confirmed Last Taken 01/22/17] Medical - DS: Hosp Hospital course: Mr. Gibson is a 62 year old F Ms. Gibson is a 62 year old female with h/o copd, and recurrent admission to [facility] and [facility], the patient was recently discharged from [facility] with copd exacerbation, within less than a week after her discharge she developed shortnes of breath and presented here again for COPD exacerbation. patient contiues to smoke and has been counselled to quit. COPD : Patient exacerbation was treated with steroids, duonebs and antibiotics with good response, she continued to improve and was back to baseline oxygen needs. She will continue a slow taper of prednisone after discahrge. She will resume her home dose of neublizer at discharge. PNA: CXR suggestive of pna, treated with zithromax, vanco and rocephin, pt responded to treatment well, received 4 days of IV abx here, will give another 3 days of PO levofloxacin to complete the 7 day course of antibiotics. The patient CXR showed mild possible chf, which responded very well to lasix. She needs to follow up with her PCP for further management. DM: The patient has had a difficult time with her glucose control, is non compliant with her diet, here at one time she consumed 12 regular pepsi in one night, it seems here relative had got it for her. She was educated with regards to dietary compliance. Her dose of metformin has been increased from 500bid to 1000 bid, she is also on januvia, dose of which was also increased to 100mg daily. She will be on sliding scale insulin for her hyperglycemia, which I expect will continue while she remains on steroids. She needs to follow up with her PCP for further titration of her medications. The patient rest of medical conditions were stable and no changes made in home med list except as mentioned above, the patient was weak after her multiple hospital stays, and needed 1 person assist for transfers, will be discharged to SNF for rehab. Discharge diagnosis: copd exacerbation, pneumonia - Time Spent with Patient Total time spent providing and/or coordinating discharge services: Greater than 30 minutes Medical - DS: Exam - Constitutional Vitals: Vital Signs Temp Pulse Pulse Resp BP BP BP 01/24/17 11:58 97.7 F 95 H 16 159/63 01/24/17 08:00 96 F L 95 H 16 170/84 01/24/17 07:48 01/24/17 07:47 106 H 16 01/24/17 07:44 104 H 16 01/24/17 04:00 97.2 F 94 H 22 161/83 01/24/17 00:50 97.7 F 92 H 20 141/75 01/23/17 22:24 92 H 01/23/17 20:16 98.7 F 18 107/51 01/23/17 20:00 98.7 F 97 H 18 107/51 01/23/17 19:54 94 H 14 01/23/17 19:42 01/23/17 19:16 01/23/17 16:00 97 F 100 H 16 170/90 01/23/17 13:41 102 H 16 01/23/17 13:39 Pulse Ox 01/24/17 11:58 90 01/24/17 08:00 96 01/24/17 07:48 95 01/24/17 07:47 95 01/24/17 07:44 01/24/17 04:00 97 01/24/17 00:50 94 01/23/17 22:24 01/23/17 20:16 92 01/23/17 20:00 92 01/23/17 19:54 01/23/17 19:42 94 01/23/17 19:16 96 01/23/17 16:00 92 01/23/17 13:41 01/23/17 13:39 90 Intake and Output 01/23/17 01/24/17 01/24/17 21:59 05:59 13:59 Intake Total 670 / 670 340 / 340 Balance 670 / 670 340 / 340 Intake: IV 250 / 250 Vancomycin 750 mg In 250 / 250 Sodium Chloride 0.9% 250 ml @ 250 mls/hr IV Q12H [facility] Rx#:[id number] Oral 420 / 420 340 / 340 Other: Meal Lunch Percent of Meal Consumed 90 # Voids 1 1 # Bowel Movements 1 Weight 128 lb Additional comments: Constitutional; Afebrile, cooperative, alert, not in distress. Eyes- No icterus, , No periorbital swelling Ears- Ext ear normal, hearing normal to conversation. Neck- Midline trachea, supple Respiratory system: Air Entry equal on both sides, No crackles or wheezing, no rhonchi. CVS- Rate rhythm regular, S1,S2 heard, no gallop, no rub. Abdomen- Soft nontender abdomen, no organomegaly, no tenderness, no guarding or rigidity, [employer]- AOOx3, moving all extremities, no gross focal deficit noted. Medical - DS: Data Labs on day of discharge: Labs from last 24 hours 01/24/17 08:11 Vancomycin Trough 16.9 H Preliminary micro results at discharge 01/19/17 22:20 Blood Culture - Preliminary Blood 01/19/17 22:00 Blood Culture - Preliminary Blood Medical - DS: A/P - Patient/Caregiver Discharge Instructions Activity: as per physical therapy, increase activity as tolerated Diet: Consistent Carbohydrate Additional Instructions: PT, OT & Speech to evall & treat at SNF Take prednisone as per protocol follow up with your PCP in 7-10 days Go to ER if worsening condition or any new concern. Prescriptions: Insulin Lispro [HumaLOG] See Protocol SQ ACHS #1 ml Levofloxacin [Levaquin] 750 mg PO DAILY #3 tablet metFORMIN [Glucophage] 1,000 mg PO BIDCC #60 tablet predniSONE [Prednisone] 40 mg PO QAC #38 tablet sitaGLIPtin [Januvia] 100 mg PO DAILY #30 tablet Other Amb Orders: OT Discharge Order Location: Determined By Patient Physical Therapy at Discharge - General Location: Determined By Patient ST Discharge Order Location: Determined By Patient - Follow up Plan Follow up with: Jazmine Yao MD [Primary Care Provider] - Disposition: Xfer SNF Prognosis: Fair Rehab Potential: Fair I certify that the patient requires SNF services: Yes Overall status at discharge: patient is progressing back to baseline Medical - DS: Qual - VTE Deep Vein Thrombosis/Pulmonary Embolism Present on Admission: No
== END 2017-01-24 14:45 | DRG 190 ==
LOC: ED 18:13 → ICU 21:14
PROVIDERS: ADMIT Internal Medicine; ATTEND Internal Medicine

== ENCOUNTER 2017-07-22 00:52 | Inpatient (IN) ==
[2017-07-22] MEDS ORDERED: ALBUTEROL SULFATE 2.5 MG/3 ML NEBULIZER NEB ONE ×2 (01:00→02:30)
[2017-07-22] MEDS ORDERED: methylPREDNISolone SOD SUCC 125 MG/2 ML VIAL IV ONE (01:14)
[2017-07-22] MEDS ORDERED: AZITHROMYCIN 250 MG TABLET PO ONE (01:14)
[2017-07-22] MEDS ORDERED: MAGNESIUM SULFATE 2 GM/50 ML BAG IV ONE (01:14)
[2017-07-22] MEDS ORDERED: MAGNESIUM SULFATE 8.12 MEQ/2 ML VIAL ONE (01:47)
[2017-07-22 01:57] LABS: Basophils # (Auto) 0 K/mcL (0.0-0.3); Basophils % (Auto) 0.1 % (0.0-2.0); Eosinophils # (Auto) 0 K/mcL (0.0-0.7); Eosinophils % (Auto) 0 % (0.0-7.0); Lymphocytes # (Auto) 0.4 K/mcL (1.5-4.8); Lymphocytes % (Auto) 3.1 % (15.5-49.0); Mean Cell Volume 93.6 fL (80.0-100.0); Mean Corpuscular HGB Conc 32.7 g/dL (31.0-36.0); Mean Corpuscular Hemoglobin 30.6 pg (26.0-34.0); Monocytes # (Auto) 0.3 K/mcL (0.1-0.9); Monocytes % (Auto) 1.8 % (1.0-12.0); Platelet Count 738 K/mcL (140-440); Red Cell Distribution Width 15.1 % (11.5-14.5)
[2017-07-22] MEDS ORDERED: 0.9 % SODIUM CHLORIDE 1,000 ML IV ONE (02:12)
[2017-07-22 02:17] LABS: ALT/SGPT 12 U/l (0-40); Albumin 4.6 gm/dL (3.2-5.2); Albumin/Globulin Ratio 1.5 (1.0-2.3); Alkaline Phosphatase 115 U/L (39-117); Blood Urea Nitrogen 19 mg/dl (8-23)
--- NOTE | 2017-07-22 02:21 | Emergency Department Note ---
SOB HPI - General Chief Complaint: Shortness of Breath/Dyspnea Stated Complaint: sob Time Seen by Provider: 07/22/17 01:08 Source: patient Mode of arrival: EMS Limitations: no limitations - History of Present Illness This 62-year-old female with known COPD on 3 L nasal cannula oxygen around-the- clock comes in for the fourth time in 3 days for COPD exacerbation she denies fever but she does have some diarrhea no vomiting but some nausea. On review of medical records it does sound like they have offered admission with every visit but she is declined to come in the hospital and refused admission. Increasing shortness of breath again today. She states she has been taking her medicine - Related Data Home Medications Medication Instructions Recorded Confirmed Albuterol Sulfate [Ventolin] 2 puff INH Q4HP PRN 08/15/16 01/22/17 Gabapentin [Neurontin] 300 mg PO BID 08/15/16 01/22/17 Bisacodyl [Dulcolax] 10 mg [place] DAILYP PRN 01/22/17 01/22/17 Budesonide [Pulmicort] 0.5 mg NEB Q12 01/22/17 01/22/17 Ipratropium/Albuterol [Duoneb] 3 ml NEB TIDP PRN 01/22/17 01/23/17 Levothyroxine [Synthroid] 100 mcg PO DAILY 01/22/17 01/22/17 Montelukast [Singular] 10 mg PO HS 01/22/17 01/22/17 Omeprazole [Prilosec] 40 mg PO ACB 01/22/17 01/22/17 PARoxetine HCL [Paxil] 20 mg PO DAILY 01/22/17 01/22/17 Prochlorperazine (Pp) 10 mg PO Q6HP PRN 01/22/17 01/22/17 amLODIPine [Norvasc] 5 mg PO DAILY 01/22/17 01/23/17 Acetaminophen [Non-Aspirin] 325 - 650 mg PO Q4-6HP PRN 01/23/17 01/23/17 Previous Rx's Medication Instructions Recorded Potassium Chloride [Kdur] 20 meq PO BIDCC #15 tablet 10/02/16 Lisinopril [Zestril] 10 mg PO DAILY #30 tablet 12/23/16 metFORMIN [Glucophage] 1,000 mg PO BIDCC #60 tablet 01/24/17 predniSONE [Prednisone] 40 mg PO [facility] #38 tablet 01/24/17 sitaGLIPtin [Januvia] 100 mg PO DAILY #30 tablet 01/24/17 Azithromycin 250 mg PO DAILY #4 tab 07/20/17 Allergies Allergy/AdvReac Type Severity Reaction Status Date / Time Penicillins Allergy Mild Rash Verified 01/24/17 06:35 Review of Systems All systems ED: reviewed and negative except as stated. Past Medical History - Past Medical History Attestation: Yes: The following information was validated with the patient. Medical history: Reports: arthritis, COPD, DM, hypertension, osteoporosis, thyroid disease Psychiatric history: Reports: depression Surgical history ED: Reports: cholecystectomy, tonsillectomy, other (myomectomy , carpal tunnel, cervical spine) - Social History smoking status: Current every day smoker Alcohol use: Reports: None Drug use: Reports: marijuana, prescription drug abuse (in the past) Physical Exam Chronically ill-appearing female. Some acute respiratory distress-improved with breathing treatment. Normocephalic atraumatic. Conjunctive are clear sclerae white and nonicteric. Dry buccal mucosa. Heart is tachycardic but regular. Sinus tachycardia on the monitor. Lungs with coarse sounds in all bullard with end expiratory wheezing and rhonchi. Much improvement with single breathing treatment however still remains coarse lung sounds with wheezing. +3 radial pulse. Alert and able to answer questions but is not speaking in full sentences Limitations: no limitations Course Vital Signs Temperature 97.9 F 07/22/17 00:53 Pulse Rate 144 H 07/22/17 00:53 Respiratory Rate 26 H 07/22/17 00:53 Blood Pressure 180/110 07/22/17 00:53 Pulse Oximetry (%) 89 L 07/22/17 00:53 Temperature 97.9 F 07/22/17 02:15 Pulse Rate 117 H 07/22/17 02:22 Respiratory Rate 22 07/22/17 02:01 Blood Pressure 150/80 07/22/17 02:01 Pulse Oximetry (%) 90 07/22/17 02:22 Shortness of Breath/Dyspnea - Lab Data Lab results reviewed: Yes I reviewed the patient's lab results. Result diagrams: 07/22/17 01:25 07/22/17 01:25 Lab Results 07/22/17 07/22/17 07/22/17 Range/Units 01:25 01:25 01:25 WBC 14.5 H (4.5-11.0) K/mcL RBC 3.40 L (4.00-5.20) M/mcL Hgb 10.4 L (12.0-15.0) g/dL Hct 31.8 L (36.0-48.0) % MCV 93.6 (80.0-100.0) fL MCH 30.6 (26.0-34.0) pg MCHC 32.7 (31.0-36.0) g/dL RDW 15.1 H (11.5-14.5) % Plt Count 738 H (140-440) K/mcL MPV 6.8 L (7.4-10.4) fL Gran % 95.0 H (38.0-78.0) % Lymph % (Auto) 3.1 L (15.5-49.0) % [place] % (Auto) 1.8 (1.0-12.0) % Eos % (Auto) 0 (0.0-7.0) % Baso % (Auto) 0.1 (0.0-2.0) % Gran # 13.8 H (1.8-8.0) K/mcL Lymph # (Auto) 0.4 L (1.5-4.8) K/mcL [place] # (Auto) 0.3 (0.1-0.9) K/mcL Eos # (Auto) 0 (0.0-0.7) K/mcL Baso # (Auto) 0 (0.0-0.3) K/mcL VBG Lactic Acid 3.6 H (0.5-2.2) mmol/L Sodium 138 (133-145) mmol/L Potassium 5.4 H (3.3-5.1) mmol/L Chloride 99 (96-108) mmol/L Carbon Dioxide 22 (22-30) mmol/L Anion Gap 17.0 H (8-16) BUN 19 (8-23) mg/dl Creatinine 0.9 (0.6-1.1) mg/dl GFR Calculation 68 Glucose 192 H (70-105) mg/dL Calcium 9.6 (8.6-10.4) mg/dl Total Bilirubin < 0.2 (0.0-1.0) mg/dL AST 15 (0-37) U/l ALT 12 (0-40) U/l Alkaline Phosphatase 115 (39-117) U/L Troponin T (0-0.03) ng/ml Total Protein 7.6 (5.9-8.4) gm/dL Albumin 4.6 (3.2-5.2) gm/dL Globulin 3.0 (2.2-3.7) gm/dL Albumin/Globulin Ratio 1.5 (1.0-2.3) 07/22/17 Range/Units 01:25 WBC (4.5-11.0) K/mcL RBC (4.00-5.20) M/mcL Hgb (12.0-15.0) g/dL Hct (36.0-48.0) % MCV (80.0-100.0) fL MCH (26.0-34.0) pg MCHC (31.0-36.0) g/dL RDW (11.5-14.5) % Plt Count (140-440) K/mcL MPV (7.4-10.4) fL Gran % (38.0-78.0) % Lymph % (Auto) (15.5-49.0) % [place] % (Auto) (1.0-12.0) % Eos % (Auto) (0.0-7.0) % Baso % (Auto) (0.0-2.0) % Gran # (1.8-8.0) K/mcL Lymph # (Auto) (1.5-4.8) K/mcL [place] # (Auto) (0.1-0.9) K/mcL Eos # (Auto) (0.0-0.7) K/mcL Baso # (Auto) (0.0-0.3) K/mcL VBG Lactic Acid (0.5-2.2) mmol/L Sodium (133-145) mmol/L Potassium (3.3-5.1) mmol/L Chloride (96-108) mmol/L Carbon Dioxide (22-30) mmol/L Anion Gap (8-16) BUN (8-23) mg/dl Creatinine (0.6-1.1) mg/dl GFR Calculation Glucose (70-105) mg/dL Calcium (8.6-10.4) mg/dl Total Bilirubin (0.0-1.0) mg/dL AST (0-37) U/l ALT (0-40) U/l Alkaline Phosphatase (39-117) U/L Troponin T < 0.01 (0-0.03) ng/ml Total Protein (5.9-8.4) gm/dL Albumin (3.2-5.2) gm/dL Globulin (2.2-3.7) gm/dL Albumin/Globulin Ratio (1.0-2.3) Arterial blood gas shows pH 7.38 PCO2 45 PO2 58 on 2 L nasal cannula oxygen - Radiology Data Radiology results reviewed: Yes I reviewed the patient's radiology results. Chest x-ray shows no acute changes Disposition Pt seen by SENIOR INFORMATION DEVELOPER/PA only: No Clinical Impression: Acute exacerbation of chronic obstructive airways disease Summary: Initially given albuterol 1 nebulized. After patient interviewed and examined start azithromycin Solu-Medrol and magnesium. After treated for COPD exacerbation patient still has residual wheezing and rhonchi. Another albuterol treatment ordered. Patient finally tired enough to accept coming in the hospital for further care -refused at previous visits. Discussed patient with hospitalist Dr. Naqvi; accepted patient for inpatient care. I will write transition orders Disposition: Xfer As Inpt ([facility]) Condition: Fair Referrals: Jazmine Yao MD [Primary Care Provider] -
[2017-07-22] MEDS ORDERED: ACETAMINOPHEN 325 MG TABLET PO PRN (02:34)
[2017-07-22] MEDS ORDERED: ONDANSETRON 4 MG/2 ML VIAL IV PRN (02:34)
[2017-07-22] MEDS ORDERED: 0.9 % SODIUM CHLORIDE 1,000 ML IV SCH (02:45)
[2017-07-22] MEDS ORDERED: ALBUTEROL SULFATE 2.5 MG/3 ML NEBULIZER NEB SCH (03:00)
[2017-07-22] MEDS: IPRATROPIUM/ALBUTEROL 3 ML AMPUL.NEB NEB SCH ×6 (03:43→23:15)
[2017-07-22] MEDS ORDERED: methylPREDNISolone SOD SUCC 125 MG/2 ML VIAL IV SCH (06:00)
[2017-07-22] MEDS ORDERED: oxyCODONE HCL 5 MG TABLET PO ONE (08:36)
[2017-07-22] MEDS ORDERED: DEXTROSE 31 GM ORAL.SUSP PO PRN (09:07)
[2017-07-22] MEDS ORDERED: DEXTROSE 50% 50 ML VIAL IV PRN (09:07)
[2017-07-22] MEDS: ALBUTEROL SULFATE 2.5 MG/3 ML NEBULIZER NEB PRN ×2 (09:26→16:25)
[2017-07-22] MEDS: NICOTINE 14 MG PATCH TOPICAL SCH (09:38)
[2017-07-22] MEDS: 0.9 % SODIUM CHLORIDE 10 ML SYRINGE IV SCH ×3 (09:50→18:13)
--- NOTE | 2017-07-22 09:56 | XRay Report ---
HISTORY: Reason for Exam:dyspnea FINDINGS: There is an increased AP diameter of the chest. The lungs are borderline hyperinflated. There is no evidence of pneumonia, mass, pulmonary vascular congestion or pleural effusion.. The heart, mediastinum, jennifer and pleura are normal. There are multiple old healed bilateral rib fractures. Spine has a moderate kyphotic curvature and there is arthritis. There has been no significant change since 07/20/17. IMPRESSION: Borderline hyperinflated lungs. This may be due to asthma or COPD. Interpreted and Authenticated by: Lai Pollock 07/22/17
[2017-07-22] MEDS ORDERED: ENOXAPARIN 40 MG/0.4 ML SYRINGE SQ ONE (10:04)
[2017-07-22] MEDS ORDERED: PANTOPRAZOLE 40 MG TABLET PO ONE (10:05)
[2017-07-22] MEDS: methylPREDNISolone SOD SUCC 125 MG/2 ML VIAL IV SCH ×2 (11:54→18:12)
[2017-07-22] MEDS: INSULIN LISPRO 1 UNIT/0.01 ML UNIT SQ SCH ×3 (12:28→20:53)
[2017-07-22 12:46] LABS: Hemoglobin A1C 5.2 % HGB (4.0-6.0)
[2017-07-22] MEDS ORDERED: BISACODYL 10 MG SUPP.RECT PR PRN (14:18)
--- NOTE | 2017-07-22 14:24 | Internal Med History&Physical ---
Medical - H&P: HPI Patient information: Note initiated : 07/22/17 at 2:22 pm Service Date, if different from initiated Date: [] Patient: Zakia Gibson 62 y/o F admitted on 07/22/17 for sob. Chief Complaint: recurrent dyspnea History of present illness: Patient is a 62-year-old female with chronic respiratory failure, on oxygen at home, hypertension, type 2 diabetes, depression, ongoing tobacco abuse who presents to the ED for the third time in the last 3 days with complaints of dyspnea. Patient was first seen on the with worsening shortness of breath. She received steroids and nebulizer treatment with some improvement. Was prescribed azithromycin and steroids. She returned the following day on Sunday. She had not yet filled his previous prescription. In addition her usual prescriptions for DuoNeb and Pulmicort had run out and she had not been using those for at least a few days. She received further breathing treatments and IV steroids for some improvement, did not wish to be hospitalized and was discharged from the ED. She returns early this morning with ongoing shortness of breath. She states this all started about 3 days ago. She said minimal sputum production, when she does have sputum its whitish in nature. She is normally on 3 L at home, has turned that up at times due to shortness of breath. She denies any fever or chills, no nausea or vomiting, no abdominal pain, no chest pain, no rhinorrhea or nasal congestion. She does complain of back pain, which is chronic due to known compression fractures. She denies any dysuria, changes in urinary habits, no rashes. She did receive a flu shot this year. She continues to smoke, "at least" half pack a day. In the emergency department, she had marked decrease aeration, pursed lip breathing with tripoding posture. She received DuoNeb, steroids with some improvement, has agreed to hospitalization for further treatment of her acute exacerbation of COPD. Review of systems: Except as noted in history of present illness, negative review of systems for 11 systems. Medical - H&P: PMH Medical history: COPD Chronic hypoxic respiratory failure, on 3 L nasal cannula Hypertension Osteoporosis T6 compression fracture Type 2 diabetes mellitus Depression Degenerative disc disease C3-4, C6-7 with C3-4 spinal stenosis Hypothyroidism History of severe sepsis June 2015 History of acute respiratory failuredue to COPD Surgical history: History of cholecystectomy History of tonsillectomy History of myomectomy History of carpal tunnel surgery History of cervical spinal anterior fusion C4-C6 Pertinent family history: The patient's mother of cervical cancer. She also had diabetes mellitus as did maternal grandmother. Patient's father of biliary cancer. Social history: The patient currently smokes, minimum half pack per day. She smoked since age of 18. She has not drink alcohol. Medical - H&P: Meds Home Medications Medication Instructions Recorded Confirmed Type Albuterol Sulfate [Ventolin] 2 puff INH Q4HP PRN 08/15/16 07/22/17 History Gabapentin [Neurontin] 300 mg PO BID 08/15/16 07/22/17 History Lisinopril [Zestril] 10 mg PO DAILY #30 tablet 12/23/16 07/22/17 Rx Bisacodyl [Dulcolax] 10 mg MO DAILYP PRN 01/22/17 07/22/17 History Budesonide [Pulmicort] 0.5 mg NEB Q12 01/22/17 07/22/17 History Ipratropium/Albuterol [Duoneb] 3 ml NEB Q6 01/22/17 07/22/17 History Levothyroxine [Synthroid] 112 mcg PO DAILY 01/22/17 07/22/17 History Montelukast [Singular] 10 mg PO HS 01/22/17 07/22/17 History Omeprazole [Prilosec] 40 mg PO ACB 01/22/17 07/22/17 History PARoxetine HCL [Paxil] 20 mg PO DAILY 01/22/17 07/22/17 History Prochlorperazine (Pp) 10 mg PO Q6HP PRN 01/22/17 07/22/17 History amLODIPine [Norvasc] 5 mg PO DAILY 01/22/17 07/22/17 History Acetaminophen [Non-Aspirin] 325 - 650 mg PO Q4-6HP PRN 01/23/17 07/22/17 History metFORMIN [Glucophage] 1,000 mg PO BIDCC #60 tablet 01/24/17 07/22/17 Rx Azithromycin 250 mg PO DAILY #4 tab MDD 4 07/20/17 07/22/17 Rx Carisoprodol [Soma] 350 mg PO QIDP PRN 07/22/17 07/22/17 History HYDROcodone/ACETAMINOPHEN [[place] 2 tablet PO QIDP PRN 07/22/17 07/22/17 History 10-325 Tablet] Insulin Lispro [HumaLOG] 0 unit SQ ACHS 07/22/17 07/22/17 History Linagliptin [Tradjenta] 5 mg PO DAILY 07/22/17 07/22/17 History Potassium Chloride [Klor-Con 20 meq PO BIDCC 07/22/17 07/22/17 History Sprinkle] predniSONE [Prednisone] 40 mg PO [facility] MDD For 3 days 07/22/17 07/22/17 History Allergies Allergy/AdvReac Type Severity Reaction Status Date / Time Penicillins Allergy Mild Rash Verified 01/24/17 06:35 Medical - H&P: Exam - Constitutional Vitals: Temp Pulse Resp BP Pulse Ox 98.5 F 112 H 18 167/82 95 07/22/17 12:12 07/22/17 14:14 07/22/17 14:14 07/22/17 12:12 07/22/17 12:12 Exam: General: Alert, sitting up in bed, tripod posture, in moderate distress HEENT: Normocephalic. Pupils are equally round and reactive to light. Sclera are anicteric. No conjunctival injection. Oropharynx is with moist mucous membranes, no lip or gum lesions. Tongue is midline. Neck: Supple, no meningismus. No thyromegaly. Chest: Diminished breath sounds, scattered expiratory wheezes, few rhonchi, increased expiratory phase. Respirations are moderately labored. Cardiovascular: Regular rate and rhythm without murmur gallop or rub. Carotid pulses are 2+ without bruit. There is no lower extremity edema. Abdomen: Soft, nontender without guarding or rebound. Active bowel sounds. No hepatosplenomegaly. Lymphatic: No cervical or supraclavicular lymphadenopathy. Skin: Warm, dry. No rash. Skin turgor is normal Musculoskeletal: No joint erythema or tenderness. Normal range of motion in the upper and lower extremities. Strength 5/5 in upper and lower extremities. Digits without cyanosis. Neuro: Alert, oriented X3. Cranial nerves II through XII grossly intact. Sensation intact to light touch. DTR 3+ in the upper and lower extremity. Psychiatric: Affect and mood are anxious . Some decreased insight into medical condition. Medical - H&P: Reslt - Labs CBC & Chem 7: 07/22/17 01:25 07/22/17 01:25 Labs: Short CBC 07/22/17 Range/Units 01:25 WBC 14.5 H (4.5-11.0) K/mcL Hgb 10.4 L (12.0-15.0) g/dL Hct 31.8 L (36.0-48.0) % Plt Count 738 H (140-440) K/mcL BMP 07/22/17 01:25 Sodium 138 Potassium 5.4 H Chloride 99 Carbon Dioxide 22 BUN 19 Creatinine 0.9 Glucose 192 H Calcium 9.6 Cardiac Enzymes 07/22/17 Range/Units 01:25 Troponin T < 0.01 (0-0.03) ng/ml Liver Function 07/22/17 Range/Units 01:25 Total Bilirubin < 0.2 (0.0-1.0) mg/dL AST 15 (0-37) U/l ALT 12 (0-40) U/l Alkaline Phosphatase 115 (39-117) U/L Albumin 4.6 (3.2-5.2) gm/dL - Imaging and Cardiology Chest x-ray Status: image reviewed by me (kyphosis present, no infiltrate or vascular congestion.) Medical - H&P: A/P (1) Acute exacerbation of chronic obstructive airways disease Current visit: Yes Status: Acute (2) Acute on chronic respiratory failure with hypoxemia Current visit: Yes Status: Acute (3) Type 2 diabetes mellitus Current visit: Yes Status: Acute (4) Non-traumatic compression fracture of T6 thoracic vertebra Current visit: No Status: Acute - Narrative A/P Narrative: 62-year-old female ongoing tobacco abuse, COPD, presents with COPD exacerbation , her third presentation the last 3 days. COPD with exacerbation. Patient has been out of her Pulmicort and DuoNeb, has not been using them at home. She did not fill her azithromycin or prednisone from yesterday's ER visit. Unclear trigger, no evidence of pneumonia, could be viral illness exacerbated by ongoing tobacco use. Has pursed lip breathing, tripoding posture, significant diffuse wheezing, in spite of steroids and bronchodilators at the time of my exam. Also is tachycardic and desaturating on her usual oxygen. Plan: 1. Inpatient admission 2. Every 4 hours DuoNeb, 2 every 2 hour when necessary albuterol 3. Solu-Medrol, 40 mg every 6 hours 4. Continue with her Pulmicort 5. Continue with azithromycin for acute exacerbation of chronic bronchitis ( not pneumonia). Acute on chronic respiratory failure with hypoxemia. She is desaturating on her usual 3 L nasal cannula. This is likely secondary to her COPD. Patient would want any respiratory support available, including BiPAP for if required endotracheal intubation and mechanical ventilation. Plan: Supplemental oxygen as needed, maintain sats 88-92%, avoid over correcting hypoxia given her known CO2 retention. Treat COPD as above. Leukocytosis. May be related to steroids and stress. No evidence of infiltrate on chest x-ray. Plan: Monitor. Type 2 diabetes. Patient on metformin and Tradjenta as an outpatient. These have been filled fairly recently. Plan: Control carbohydrate diet, Accu-Cheks, sliding scale insulin and hold other meds while acutely ill. Hypertension. Some elevated blood pressure with respiratory distress. Home meds are now reconciled. Plan: Continue home regimen. Tobacco abuse. Patient was counseled on cessation. She is amenable to stopping at this time. Plan: Tobacco cessation consult. Chronic pain. The patient is on Soma as well as [place] at home. Plan: Continue home regimen. Hyperkalemia. Patient on 20 mEq twice daily of potassium. K is mildly elevated. Plan: Stop supplementation, follow. CODE STATUS is discussed with the patient, she would want full resuscitation and respiratory support up to mechanical ventilation if required. CODE STATUS is full code. Prophylaxis: Heparin, PPI Medical - H&P: Qual - VTE Deep Vein Thrombosis/Pulmonary Embolism Present on Admission: No
[2017-07-22] MEDS: CARISOPRODOL 350 MG TABLET PO PRN ×2 (16:21→20:59)
[2017-07-22] MEDS: HYDROcodone/APAP 10/325MG TABLET PO PRN ×2 (17:20→20:54)
[2017-07-22] MEDS ORDERED: POTASSIUM CHLORIDE 20 MEQ PO SCH (17:30)
[2017-07-22] MEDS: BUDESONIDE 0.5 MG/2 ML AMPUL.NEB NEB SCH (20:53)
[2017-07-22] MEDS: MONTELUKAST 10 MG TABLET PO SCH (20:54)
[2017-07-22] MEDS: GABAPENTIN 300 MG CAPSULE PO SCH (20:54)
[2017-07-23] MEDS: 0.9 % SODIUM CHLORIDE 10 ML SYRINGE IV SCH ×6 (00:20→23:43)
[2017-07-23] MEDS: methylPREDNISolone SOD SUCC 125 MG/2 ML VIAL IV SCH ×5 (00:20→23:43)
[2017-07-23] MEDS: HYDROcodone/APAP 10/325MG TABLET PO PRN ×4 (00:55→21:06)
[2017-07-23] MEDS: CARISOPRODOL 350 MG TABLET PO PRN ×4 (02:54→23:43)
[2017-07-23] MEDS: IPRATROPIUM/ALBUTEROL 3 ML AMPUL.NEB NEB SCH ×6 (02:54→23:03)
[2017-07-23 07:06] LABS: Blood Urea Nitrogen 32 mg/dl (8-23)
[2017-07-23] MEDS: LEVOTHYROXINE SODIUM 112 MCG TABLET PO SCH (08:18)
[2017-07-23] MEDS: PANTOPRAZOLE 40 MG TABLET PO SCH (08:18)
[2017-07-23] MEDS: INSULIN LISPRO 1 UNIT/0.01 ML UNIT SQ SCH ×4 (08:23→21:05)
[2017-07-23] MEDS: BUDESONIDE 0.5 MG/2 ML AMPUL.NEB NEB SCH ×2 (08:48→21:06)
[2017-07-23] MEDS: GABAPENTIN 300 MG CAPSULE PO SCH ×2 (09:47→21:06)
[2017-07-23] MEDS: PARoxetine 20 MG TABLET PO SCH (09:48)
[2017-07-23] MEDS: amLODIPine 5 MG TABLET PO SCH (09:48)
[2017-07-23] MEDS: NICOTINE 14 MG PATCH TOPICAL SCH (09:48)
[2017-07-23] MEDS: AZITHROMYCIN 250 MG TABLET PO SCH (09:48)
[2017-07-23] MEDS: LISINOPRIL 10 MG TABLET PO SCH (09:48)
[2017-07-23] MEDS: ENOXAPARIN 40 MG/0.4 ML SYRINGE SQ SCH (09:49)
--- NOTE | 2017-07-23 15:43 | Internal Med Progress Note ---
Medical - PN: Subj Patient information: Note initiated : 07/23/17 at 3:41 pm Service Date, if different from initiated Date: [] Patient: Zakia Gibson 62 y/o F admitted on 07/22/17 for sob. Chief Complaint: f/u COPD Interval history: Jul 22 Patient is a 62-year-old female with chronic respiratory failure, on oxygen at home, hypertension, type 2 diabetes, depression, ongoing tobacco abuse who presents to the ED for the third time in the last 3 days with complaints of dyspnea. Patient was first seen on the with worsening shortness of breath. She received steroids and nebulizer treatment with some improvement. Was prescribed azithromycin and steroids. She returned the following day on Sunday. She had not yet filled his previous prescription. In addition her usual prescriptions for DuoNeb and Pulmicort had run out and she had not been using those for at least a few days. She received further breathing treatments and IV steroids for some improvement, did not wish to be hospitalized and was discharged from the ED. She returns early this morning with ongoing shortness of breath. She states this all started about 3 days ago. She said minimal sputum production, when she does have sputum its whitish in nature. She is normally on 3 L at home, has turned that up at times due to shortness of breath. She denies any fever or chills, no nausea or vomiting, no abdominal pain, no chest pain, no rhinorrhea or nasal congestion. She does complain of back pain, which is chronic due to known compression fractures. She denies any dysuria, changes in urinary habits, no rashes. She did receive a flu shot this year. She continues to smoke, "at least" half pack a day. In the emergency department, she had marked decrease aeration, pursed lip breathing with tripoding posture. She received DuoNeb, steroids with some improvement, has agreed to hospitalization for further treatment of her acute exacerbation of COPD. Jul 23 Slowly improved over the day yesterday with steroids and aggressive breathing treatments. This morning breathing more comfortably. Still leaned over her bedside tray to help respirations when I see her today. Not really coughing up much. No fever or chills, no chest pain. - Constitutional Vitals: Vital Signs Temp Pulse Resp BP Pulse Ox 98.7 F 120 H 18 139/76 98 07/23/17 12:15 07/23/17 15:26 07/23/17 15:26 07/23/17 12:15 07/23/17 12:15 Period Temp Pulse Resp BP Sys/Gutierrez Pulse Ox Last 24 Hr 97.8 F-100.3 F 110-124 16-24 139-177/68-118 95-98 Intake and Output 07/23/17 07/23/17 07/23/17 05:59 13:59 21:59 Intake Total 625 / 625 1060 / 1060 Output Total 1350 / 1350 725 / 725 Balance -725 / -725 335 / 335 Intake & Output: Intake & Output 07/23/17 07/23/17 07/23/17 05:59 13:59 21:59 Intake Total 625 / 625 1060 / 1060 Output Total 1350 / 1350 725 / 725 Balance -725 / -725 335 / 335 Intake: Oral 625 / 625 1060 / 1060 Output: Void Amount 1350 / 1350 725 / 725 Other: Meal [place] [employer] Percent of Meal Consumed 100% 50% Feeding Ability Independent Independent Exam: Gen: Chronically ill-appearing Chest: Diminished breath sounds throughout, scattered expiratory wheezes, prolonged expiratory phase, no rhonchi. Cardiovascular: Regular, tachycardic, no peripheral edema. Abdomen: Soft, nontender Neuro: Alert, oriented 3, moves all extremities. Medical - PN: Obj Da - Labs CBC & Chem 7: 07/22/17 01:25 07/23/17 03:45 Labs: Abnormal Lab Results 07/23/17 07/22/17 07/22/17 03:45 01:25 01:25 WBC RBC Hgb Hct RDW Plt Count MPV Gran % Lymph % (Auto) Gran # Lymph # (Auto) VBG Lactic Acid 3.6 H Potassium 5.4 H Chloride 94 L Anion Gap 17.0 H BUN 32 H Creatinine 1.2 H Glucose 280 H 192 H 07/22/17 01:25 WBC 14.5 H RBC 3.40 L Hgb 10.4 L Hct 31.8 L RDW 15.1 H Plt Count 738 H MPV 6.8 L Gran % 95.0 H Lymph % (Auto) 3.1 L Gran # 13.8 H Lymph # (Auto) 0.4 L VBG Lactic Acid Potassium Chloride Anion Gap BUN Creatinine Glucose Microbiology 07/22/17 16:57 Gram Stain - Final Sputum - Expectorated Sputum Culture - Preliminary No Pathogens prelim Meds: Medications Acetaminophen (Tylenol) 650 mg PO Q6HP PRN PRN Reason: PAIN/FEVER > 101 Hydrocodone Bitart/Acetaminophen ([place] 10/325mg) 2 tab PO QIDP PRN PRN Reason: Pain Last Admin: 07/23/17 09:56 Dose: 2 tab Albuterol Sulfate (Ventolin) 2.5 mg NEB Q2HP PRN PRN Reason: Shortness Of Breath Last Admin: 07/22/17 16:25 Dose: 2.5 mg Albuterol/Ipratropium (Duoneb) 3 ml NEB Q4HRT [facility] Last Admin: 07/23/17 15:25 Dose: 3 ml Amlodipine Besylate (Norvasc) 5 mg PO DAILY [facility] Last Admin: 07/23/17 09:48 Dose: 5 mg Azithromycin (Zithromax) 500 mg PO DAILY [facility] Stop: 07/26/17 09:01 Last Admin: 07/23/17 09:48 Dose: 500 mg Bisacodyl (Dulcolax) 10 mg [place] DAILYP PRN PRN Reason: Constipation Budesonide (Pulmicort) 0.5 mg NEB Q12 [facility] Last Admin: 07/23/17 08:48 Dose: 0.5 mg Carisoprodol (Soma) 350 mg PO QIDP PRN PRN Reason: Muscle spasms Last Admin: 07/23/17 12:20 Dose: 350 mg Dextrose (Dextrose 50%) 0 ml IV UD PRN PRN Reason: Hypoglycemia Diagnostic Test (Pha) (Accu-Chek) 1 each FS [facility] Last Admin: 07/23/17 11:59 Dose: 1 each Enoxaparin Sodium (Lovenox) 40 mg SQ DAILY [facility] Last Admin: 07/23/17 09:49 Dose: 40 mg Gabapentin (Neurontin) 300 mg PO BID [facility] Last Admin: 07/23/17 09:47 Dose: 300 mg Glucose (Insta-Glucose) 15 gm PO PRN PRN PRN Reason: Hypoglycemia Insulin Human Lispro (Humalog) 0 unit SQ [facility] PRN Reason: Protocol Last Admin: 07/23/17 11:59 Dose: 8 unit Levothyroxine Sodium (Synthroid) 112 mcg PO QAMAC [facility] Last Admin: 07/23/17 08:18 Dose: 112 mcg Lisinopril (Zestril) 10 mg PO DAILY [facility] Last Admin: 07/23/17 09:48 Dose: 10 mg Methylprednisolone Sodium Succinate (Solu-Medrol) 40 mg IV Q6 [facility] Last Admin: 07/23/17 12:00 Dose: 40 mg Montelukast Sodium (Singular) 10 mg PO HS [facility] Last Admin: 07/22/17 20:54 Dose: 10 mg Nicotine (Nicoderm) 14 mg TOPICAL DAILY@1000 [facility] Last Admin: 07/23/17 09:48 Dose: 14 mg Ondansetron HCl (Zofran) 4 mg IV Q4HP PRN PRN Reason: Nausea And Vomiting Pantoprazole Sodium (Protonix) 40 mg PO QAMAC [facility] Last Admin: 07/23/17 08:18 Dose: 40 mg Paroxetine HCl (Paxil) 20 mg PO DAILY [facility] Last Admin: 07/23/17 09:48 Dose: 20 mg Sodium Chloride (Saline Flush) 10 ml IV Q8 [facility] Last Admin: 07/23/17 12:01 Dose: 10 ml Medical - PN: A/P - Time Spent With Patient Total time spent is greater than 50% in coordination of care (as documented) at patient's floor/unit and/or counseling patient: (1) Acute exacerbation of chronic obstructive airways disease Status: Acute Current Visit: Yes (2) Acute on chronic respiratory failure with hypoxemia Status: Acute Current Visit: Yes (3) Type 2 diabetes mellitus Status: Acute Current Visit: Yes (4) Non-traumatic compression fracture of T6 thoracic vertebra Status: Acute Current Visit: No - Narrative A/P Narrative: 62-year-old female ongoing tobacco abuse, COPD, presents with COPD exacerbation , her third presentation the last 3 days. COPD with exacerbation. Patient has been out of her Pulmicort and DuoNeb, has not been using them at home. She did not fill her azithromycin or prednisone from ER visits. Unclear trigger, no evidence of pneumonia, could be viral illness exacerbated by ongoing tobacco use. Remains with impaired airflow, though improving. Plan: Continue with every 4 hours DuoNeb, every 2 when necessary albuterol, Solu-Medrol, Pulmicort, azithromycin for acute exacerbation of chronic bronchitis Acute on chronic respiratory failure with hypoxemia. On 3 L nasal cannula at baseline with desaturations beyond that. Improving. Plan: Supplemental oxygen as needed, maintain sats 88-92%, avoid over correcting hypoxia given her known CO2 retention. Treat COPD as above. Leukocytosis. May be related to steroids and stress. No evidence of infiltrate on chest x-ray. Plan: Monitor. Type 2 diabetes. Patient on metformin and Tradjenta as an outpatient. These have been filled fairly recently. Plan: Control carbohydrate diet, Accu-Cheks, sliding scale insulin and hold other meds while acutely ill. Hypertension. Some elevated blood pressure with respiratory distress. Home meds are now reconciled. Plan: Continue home regimen. Tobacco abuse. Patient was counseled on cessation. She is amenable to stopping at this time. Plan: Tobacco cessation consult. Chronic pain. The patient is on Soma as well as [place] at home. Plan: Continue home regimen. Hyperkalemia. Resolved. Patient was on 20 mEq twice daily of potassium. Plan: Continue to hold supplementation, follow. Medical - PN: Qual - VTE Deep Vein Thrombosis/Pulmonary Embolism Present on Admission: No
[2017-07-23] MEDS ORDERED: guaiFENesin 600 MG TAB.SR.12H PO ONE (17:38)
[2017-07-23] MEDS: MONTELUKAST 10 MG TABLET PO SCH (21:06)
[2017-07-24] MEDS: HYDROcodone/APAP 10/325MG TABLET PO PRN ×5 (01:27→22:41)
[2017-07-24] MEDS: IPRATROPIUM/ALBUTEROL 3 ML AMPUL.NEB NEB SCH ×6 (02:45→22:51)
[2017-07-24] MEDS: methylPREDNISolone SOD SUCC 125 MG/2 ML VIAL IV SCH (05:52)
[2017-07-24] MEDS: CARISOPRODOL 350 MG TABLET PO PRN ×4 (05:52→22:41)
[2017-07-24] MEDS: 0.9 % SODIUM CHLORIDE 10 ML SYRINGE IV SCH ×4 (05:59→20:51)
[2017-07-24 06:10] LABS: Basophils # (Auto) 0 K/mcL (0.0-0.3); Basophils % (Auto) 0.1 % (0.0-2.0); Eosinophils # (Auto) 0.1 K/mcL (0.0-0.7); Eosinophils % (Auto) 0.4 % (0.0-7.0); Granulocytes % (Auto) 94.3 % (38.0-78.0); Lymphocytes # (Auto) 0.4 K/mcL (1.5-4.8); Lymphocytes % (Auto) 2.7 % (15.5-49.0); Mean Cell Volume 94.7 fL (80.0-100.0); Mean Corpuscular HGB Conc 32.6 g/dL (31.0-36.0); Mean Corpuscular Hemoglobin 30.9 pg (26.0-34.0); Monocytes # (Auto) 0.4 K/mcL (0.1-0.9); Monocytes % (Auto) 2.5 % (1.0-12.0); Platelet Count 610 K/mcL (140-440); RBC 3.08 M/mcL (4.00-5.20); Red Cell Distribution Width 14.5 % (11.5-14.5)
[2017-07-24 06:32] LABS: Blood Urea Nitrogen 38 mg/dl (8-23)
[2017-07-24] MEDS: LEVOTHYROXINE SODIUM 112 MCG TABLET PO SCH (07:50)
[2017-07-24] MEDS: PANTOPRAZOLE 40 MG TABLET PO SCH (07:50)
[2017-07-24] MEDS: BUDESONIDE 0.5 MG/2 ML AMPUL.NEB NEB SCH ×2 (08:02→19:08)
[2017-07-24] MEDS: INSULIN LISPRO 1 UNIT/0.01 ML UNIT SQ SCH ×4 (08:07→20:50)
[2017-07-24] MEDS: ENOXAPARIN 40 MG/0.4 ML SYRINGE SQ SCH (08:47)
[2017-07-24] MEDS: AZITHROMYCIN 250 MG TABLET PO SCH (08:48)
[2017-07-24] MEDS: GABAPENTIN 300 MG CAPSULE PO SCH ×2 (08:48→20:51)
[2017-07-24] MEDS: amLODIPine 5 MG TABLET PO SCH (08:49)
[2017-07-24] MEDS: LISINOPRIL 10 MG TABLET PO SCH (08:49)
[2017-07-24] MEDS: guaiFENesin 600 MG TAB.SR.12H PO PRN ×2 (08:49→22:43)
[2017-07-24] MEDS: PARoxetine 20 MG TABLET PO SCH (08:49)
--- NOTE | 2017-07-24 09:17 | Internal Med Progress Note ---
Medical - PN: Subj Patient information: Note initiated : 07/24/17 at 9:13 am Service Date, if different from initiated Date: [] Patient: Zakia Gibson 62 y/o F admitted on 07/22/17 for sob. Chief Complaint: f/u COPD Interval history: Jul 22 Patient is a 62-year-old female with chronic respiratory failure, on oxygen at home, hypertension, type 2 diabetes, depression, ongoing tobacco abuse who presents to the ED for the third time in the last 3 days with complaints of dyspnea. Patient was first seen on the with worsening shortness of breath. She received steroids and nebulizer treatment with some improvement. Was prescribed azithromycin and steroids. She returned the following day on Sunday. She had not yet filled his previous prescription. In addition her usual prescriptions for DuoNeb and Pulmicort had run out and she had not been using those for at least a few days. She received further breathing treatments and IV steroids for some improvement, did not wish to be hospitalized and was discharged from the ED. She returns early this morning with ongoing shortness of breath. She states this all started about 3 days ago. She said minimal sputum production, when she does have sputum its whitish in nature. She is normally on 3 L at home, has turned that up at times due to shortness of breath. She denies any fever or chills, no nausea or vomiting, no abdominal pain, no chest pain, no rhinorrhea or nasal congestion. She does complain of back pain, which is chronic due to known compression fractures. She denies any dysuria, changes in urinary habits, no rashes. She did receive a flu shot this year. She continues to smoke, "at least" half pack a day. In the emergency department, she had marked decrease aeration, pursed lip breathing with tripoding posture. She received DuoNeb, steroids with some improvement, has agreed to hospitalization for further treatment of her acute exacerbation of COPD. Jul 23 Slowly improved over the day yesterday with steroids and aggressive breathing treatments. This morning breathing more comfortably. Still leaned over her bedside tray to help respirations when I see her today. Not really coughing up much. No fever or chills, no chest pain. Jul 24 Continues to slowly improve. Still with resting tachycardia into 120's, but no longer requiring O2 during the day, wearing at night. Starting to mobilize secretions. No fever and chills. CBG running high, but had non-diet cola yesterday evening. - Constitutional Vitals: Vital Signs Temp Pulse Resp BP Pulse Ox 98.6 F 111 H 18 168/106 96 07/24/17 08:01 07/24/17 08:18 07/24/17 08:18 07/24/17 08:04 07/24/17 08:18 Period Temp Pulse Resp BP Sys/Gutierrez Pulse Ox Last 24 Hr 97.3 F-98.8 F 105-120 14-24 134-168/72-106 94-98 Intake and Output 07/23/17 07/24/17 07/24/17 21:59 05:59 13:59 Intake Total 360 / 360 340 / 340 300 / 300 Output Total 150 / 150 825 / 825 825 / 825 Balance 210 / 210 -485 / -485 -525 / -525 Weight 121 lb 14.4 oz Intake & Output: Intake & Output 07/23/17 07/24/17 07/24/17 21:59 05:59 13:59 Intake Total 360 / 360 340 / 340 300 / 300 Output Total 150 / 150 825 / 825 825 / 825 Balance 210 / 210 -485 / -485 -525 / -525 Weight 121 lb 14.4 oz Intake: Oral 360 / 360 340 / 340 300 / 300 Output: Void Amount 150 / 150 825 / 825 825 / 825 Other: Meal Dinner sandwich and crackers Percent of Meal Consumed 75% 100% Feeding Ability Independent Exam: Gen: Looks more comfortable Chest: Diffuse expiratory wheezes, but better air movement. Accessory muscle use. CV: Tachy, regular, no edema Abd: Soft, NT Neuro: Alert, Ox3, non-focal Medical - PN: Obj Da - Labs CBC & Chem 7: 07/24/17 03:50 07/24/17 03:50 Labs: Abnormal Lab Results 07/24/17 07/24/17 07/23/17 03:50 03:50 03:45 WBC 14.6 H RBC 3.08 L Hgb 9.5 L Hct 29.2 L RDW Plt Count 610 H MPV 6.9 L Gran % 94.3 H Lymph % (Auto) 2.7 L Gran # 13.8 H Lymph # (Auto) 0.4 L VBG Lactic Acid Potassium Chloride 93 L 94 L Anion Gap BUN 38 H 32 H Creatinine 1.2 H Glucose 328 H 280 H 07/22/17 07/22/17 07/22/17 01:25 01:25 01:25 WBC 14.5 H RBC 3.40 L Hgb 10.4 L Hct 31.8 L RDW 15.1 H Plt Count 738 H MPV 6.8 L Gran % 95.0 H Lymph % (Auto) 3.1 L Gran # 13.8 H Lymph # (Auto) 0.4 L VBG Lactic Acid 3.6 H Potassium 5.4 H Chloride Anion Gap 17.0 H BUN Creatinine Glucose 192 H Meds: Medications Acetaminophen (Tylenol) 650 mg PO Q6HP PRN PRN Reason: PAIN/FEVER > 101 Hydrocodone Bitart/Acetaminophen ([place] 10/325mg) 2 tab PO QIDP PRN PRN Reason: Pain Last Admin: 07/24/17 05:53 Dose: 2 tab Albuterol Sulfate (Ventolin) 2.5 mg NEB Q2HP PRN PRN Reason: Shortness Of Breath Last Admin: 07/22/17 16:25 Dose: 2.5 mg Albuterol/Ipratropium (Duoneb) 3 ml NEB Q4HRT [facility] Last Admin: 07/24/17 08:02 Dose: 3 ml Amlodipine Besylate (Norvasc) 5 mg PO DAILY [facility] Last Admin: 07/24/17 08:49 Dose: 5 mg Azithromycin (Zithromax) 500 mg PO DAILY [facility] Stop: 07/26/17 09:01 Last Admin: 07/24/17 08:48 Dose: 500 mg Bisacodyl (Dulcolax) 10 mg UT DAILYP PRN PRN Reason: Constipation Budesonide (Pulmicort) 0.5 mg NEB Q12 [facility] Last Admin: 07/24/17 08:02 Dose: 0.5 mg Carisoprodol (Soma) 350 mg PO QIDP PRN PRN Reason: Muscle spasms Last Admin: 07/24/17 05:52 Dose: 350 mg Dextrose (Dextrose 50%) 0 ml IV UD PRN PRN Reason: Hypoglycemia Diagnostic Test (Pha) (Accu-Chek) 1 each FS ACHS [facility] Last Admin: 07/24/17 08:07 Dose: 1 each Enoxaparin Sodium (Lovenox) 40 mg SQ DAILY [facility] Last Admin: 07/24/17 08:47 Dose: 40 mg Gabapentin (Neurontin) 300 mg PO BID [facility] Last Admin: 07/24/17 08:48 Dose: 300 mg Glucose (Insta-Glucose) 15 gm PO PRN PRN PRN Reason: Hypoglycemia Guaifenesin (Mucinex) 1,200 mg PO BIDP PRN PRN Reason: Congestion Last Admin: 07/24/17 08:49 Dose: 1,200 mg Insulin Human Lispro (Humalog) 0 unit SQ [facility] PRN Reason: Protocol Last Admin: 07/24/17 08:07 Dose: 4 unit Levothyroxine Sodium (Synthroid) 112 mcg PO [facility] Last Admin: 07/24/17 07:50 Dose: 112 mcg Lisinopril (Zestril) 10 mg PO DAILY [facility] Last Admin: 07/24/17 08:49 Dose: 10 mg Methylprednisolone Sodium Succinate (Solu-Medrol) 40 mg IV BID [facility] Stop: 07/24/17 21:01 Montelukast Sodium (Singular) 10 mg PO HS [facility] Last Admin: 07/23/17 21:06 Dose: 10 mg Nicotine (Nicoderm) 14 mg TOPICAL DAILY@1000 [facility] Last Admin: 07/23/17 09:48 Dose: 14 mg Ondansetron HCl (Zofran) 4 mg IV Q4HP PRN PRN Reason: Nausea And Vomiting Pantoprazole Sodium (Protonix) 40 mg PO [facility] Last Admin: 07/24/17 07:50 Dose: 40 mg Paroxetine HCl (Paxil) 20 mg PO DAILY [facility] Last Admin: 07/24/17 08:49 Dose: 20 mg Prednisone (Prednisone) 60 mg PO [facility] Sodium Chloride (Saline Flush) 10 ml IV Q8 [facility] Last Admin: 07/24/17 08:51 Dose: 10 ml Medical - PN: A/P (1) Acute exacerbation of chronic obstructive airways disease Status: Acute Current Visit: Yes (2) Acute on chronic respiratory failure with hypoxemia Status: Acute Current Visit: Yes (3) Type 2 diabetes mellitus Status: Acute Current Visit: Yes (4) Non-traumatic compression fracture of T6 thoracic vertebra Status: Acute Current Visit: No - Narrative A/P Narrative: 62-year-old female ongoing tobacco abuse, COPD, presents with COPD exacerbation , her third presentation the last 3 days. COPD with exacerbation. Patient had been out of her Pulmicort and DuoNeb, has not been using them at home. She did not fill her azithromycin or prednisone from ER visits. Unclear trigger, no evidence of pneumonia, could be viral illness exacerbated by ongoing tobacco use. Slowly improving. Plan: Continue with every 4 hours DuoNeb, every 2 when necessary albuterol, Solu-Medrol, Pulmicort, azithromycin for acute exacerbation of chronic bronchitis Acute on chronic respiratory failure with hypoxemia. On 3 L nasal cannula at baseline, now with normal saturation on room air here. Plan: Supplemental oxygen as needed, maintain sats 88-92%, avoid over correcting hypoxia given her known CO2 retention. Treat COPD as above. Leukocytosis. May be related to steroids and stress. No evidence of infiltrate on chest x-ray. Plan: Monitor. Type 2 diabetes. Patient on metformin and Tradjenta as an outpatient. These have been filled fairly recently. Worsening CBG this morning, likely related to steroids and dietary indiscretion. Metformin being held with acute illness. Plan: Control carbohydrate diet, Accu-Cheks, sliding scale insulin; holding other meds while acutely ill. Hypertension. Some elevated blood pressure with respiratory distress. Home meds are now reconciled. Plan: Continue home regimen. Tobacco abuse. Patient was counseled on cessation. She is amenable to stopping at this time. Plan: Tobacco cessation consult. Chronic pain. The patient is on Soma as well as Empire at home. Plan: Continue home regimen. Hyperkalemia. Resolved. Patient was on 20 mEq twice daily of potassium. Plan: Continue to hold supplementation, follow. Medical - PN: Qual - VTE Deep Vein Thrombosis/Pulmonary Embolism Present on Admission: No
[2017-07-24] MEDS: NICOTINE 14 MG PATCH TOPICAL SCH (09:29)
[2017-07-24] MEDS: MONTELUKAST 10 MG TABLET PO SCH (20:50)
[2017-07-24] MEDS ORDERED: methylPREDNISolone SOD SUCC 125 MG/2 ML VIAL IV SCH (21:00)
[2017-07-25] MEDS: CARISOPRODOL 350 MG TABLET PO PRN ×3 (05:39→18:38)
[2017-07-25] MEDS: HYDROcodone/APAP 10/325MG TABLET PO PRN ×3 (05:39→18:38)
[2017-07-25] MEDS: IPRATROPIUM/ALBUTEROL 3 ML AMPUL.NEB NEB SCH ×6 (06:03→23:10)
[2017-07-25 06:57] LABS: Blood Urea Nitrogen 30 mg/dl (8-23)
[2017-07-25] MEDS: BUDESONIDE 0.5 MG/2 ML AMPUL.NEB NEB SCH ×3 (06:58→19:09)
--- NOTE | 2017-07-25 07:19 | Internal Med Progress Note ---
Medical - PN: Subj Patient information: Note initiated : 07/25/17 at 7:16 am Service Date, if different from initiated Date: [] Patient: Zakia Gibson 62 y/o F admitted on 07/22/17 for SOB/COPD Exacerbation. Chief Complaint: follow-up COPD Interval history: Jul 22 Patient is a 62-year-old female with chronic respiratory failure, on oxygen at home, hypertension, type 2 diabetes, depression, ongoing tobacco abuse who presents to the ED for the third time in the last 3 days with complaints of dyspnea. Patient was first seen on the with worsening shortness of breath. She received steroids and nebulizer treatment with some improvement. Was prescribed azithromycin and steroids. She returned the following day on Sunday. She had not yet filled his previous prescription. In addition her usual prescriptions for DuoNeb and Pulmicort had run out and she had not been using those for at least a few days. She received further breathing treatments and IV steroids for some improvement, did not wish to be hospitalized and was discharged from the ED. She returns early this morning with ongoing shortness of breath. She states this all started about 3 days ago. She said minimal sputum production, when she does have sputum its whitish in nature. She is normally on 3 L at home, has turned that up at times due to shortness of breath. She denies any fever or chills, no nausea or vomiting, no abdominal pain, no chest pain, no rhinorrhea or nasal congestion. She does complain of back pain, which is chronic due to known compression fractures. She denies any dysuria, changes in urinary habits, no rashes. She did receive a flu shot this year. She continues to smoke, "at least" half pack a day. In the emergency department, she had marked decrease aeration, pursed lip breathing with tripoding posture. She received DuoNeb, steroids with some improvement, has agreed to hospitalization for further treatment of her acute exacerbation of COPD. Jul 1 Slowly improved over the day yesterday with steroids and aggressive breathing treatments. This morning breathing more comfortably. Still leaned over her bedside tray to help respirations when I see her today. Not really coughing up much. No fever or chills, no chest pain. Jul 2 Continues to slowly improve. Still with resting tachycardia into 120's, but no longer requiring O2 during the day, wearing at night. Starting to mobilize secretions. No fever and chills. CBG running high, but had non-diet cola yesterday evening. Jul 25 Appetite improving, continues to slowly improve. Pulse is now down into the low 100s, occasionally high 90s. Significantly decreased from 130s and 140s at presentation. Still with significant wheezing. Reinforced smoking cessation today. Changed from Solu-Medrol to 60 mg daily of prednisone today. - Constitutional Vitals: Vital Signs Temp Pulse Resp BP Pulse Ox 97.7 F 128 H 22 135/88 98 07/25/17 00:09 07/24/17 22:59 07/25/17 00:09 07/25/17 00:09 07/25/17 00:09 Period Temp Pulse Resp BP Sys/Gutierrez Pulse Ox Last 24 Hr 97.7 F-98.9 F 105-128 16-22 135-173/79-106 91-98 Intake and Output 07/24/17 07/25/17 07/25/17 21:59 05:59 13:59 Intake Total 600 / 600 360 / 360 Output Total 225 / 225 Balance 375 / 375 360 / 360 Weight 122 lb 1.6 oz Intake & Output: Intake & Output 07/24/17 07/25/17 07/25/17 21:59 05:59 13:59 Intake Total 600 / 600 360 / 360 Output Total 225 / 225 Balance 375 / 375 360 / 360 Weight 122 lb 1.6 oz Intake: Oral 600 / 600 360 / 360 Output: Void Amount 225 / 225 Other: Meal Dinner Percent of Meal Consumed 75% Feeding Ability Independent # Voids 3 Exam: General: Sitting in bed getting breathing treatment, looks comfortable Chest: Diffuse inspiratory and expiratory wheezes, moderately prolonged expiratory phase, no accessory muscle use Cardiovascular: Regular, no edema Abdomen: Soft Neuro: Alert, oriented, nonfocal. Ambulating in room. Medical - PN: Obj Da - Labs CBC & Chem 7: 07/24/17 03:50 07/25/17 05:40 Labs: Abnormal Lab Results 07/25/17 07/24/17 07/24/17 05:40 03:50 03:50 WBC 14.6 H RBC 3.08 L Hgb 9.5 L Hct 29.2 L Plt Count 610 H MPV 6.9 L Gran % 94.3 H Lymph % (Auto) 2.7 L Gran # 13.8 H Lymph # (Auto) 0.4 L Chloride 95 L 93 L BUN 30 H 38 H Creatinine Glucose 254 H 328 H 07/23/17 03:45 WBC RBC Hgb Hct Plt Count MPV Gran % Lymph % (Auto) Gran # Lymph # (Auto) Chloride 94 L BUN 32 H Creatinine 1.2 H Glucose 280 H Meds: Medications Acetaminophen (Tylenol) 650 mg PO Q6HP PRN PRN Reason: PAIN/FEVER > 101 Hydrocodone Bitart/Acetaminophen ([place] 10/325mg) 2 tab PO QIDP PRN PRN Reason: Pain Last Admin: 07/25/17 05:39 Dose: 2 tab Albuterol Sulfate (Ventolin) 2.5 mg NEB Q2HP PRN PRN Reason: Shortness Of Breath Last Admin: 07/22/17 16:25 Dose: 2.5 mg Albuterol/Ipratropium (Duoneb) 3 ml NEB Q4HRT [facility] Last Admin: 07/25/17 06:58 Dose: 3 ml Amlodipine Besylate (Norvasc) 5 mg PO DAILY [facility] Last Admin: 07/24/17 08:49 Dose: 5 mg Azithromycin (Zithromax) 500 mg PO DAILY [facility] Stop: 07/26/17 09:01 Last Admin: 07/24/17 08:48 Dose: 500 mg Bisacodyl (Dulcolax) 10 mg ME DAILYP PRN PRN Reason: Constipation Budesonide (Pulmicort) 0.5 mg NEB Q12 [facility] Last Admin: 07/25/17 06:58 Dose: 0.5 mg Carisoprodol (Soma) 350 mg PO QIDP PRN PRN Reason: Muscle spasms Last Admin: 07/25/17 05:39 Dose: 350 mg Dextrose (Dextrose 50%) 0 ml IV UD PRN PRN Reason: Hypoglycemia Diagnostic Test (Pha) (Accu-Chek) 1 each FS ACHS [facility] Last Admin: 07/24/17 20:50 Dose: 1 each Enoxaparin Sodium (Lovenox) 40 mg SQ DAILY [facility] Last Admin: 07/24/17 08:47 Dose: 40 mg Gabapentin (Neurontin) 300 mg PO BID [facility] Last Admin: 07/24/17 20:51 Dose: 300 mg Glucose (Insta-Glucose) 15 gm PO PRN PRN PRN Reason: Hypoglycemia Guaifenesin (Mucinex) 1,200 mg PO BIDP PRN PRN Reason: Congestion Last Admin: 07/24/17 22:43 Dose: 1,200 mg Insulin Human Lispro (Humalog) 0 unit SQ ACHS [facility] PRN Reason: Protocol Last Admin: 07/24/17 20:50 Dose: 1 unit [facility]) [facility] Last Admin: 07/24/17 07:50 Dose: 112 mcg Lisinopril (Zestril) 10 mg PO DAILY [facility] Last Admin: 07/24/17 08:49 Dose: 10 mg Montelukast Sodium (Singular) 10 mg PO HS [facility] Last Admin: 07/24/17 20:50 Dose: 10 mg Nicotine (Nicoderm) 14 mg TOPICAL DAILY@1000 [facility] Last Admin: 07/24/17 09:29 Dose: 14 mg Ondansetron HCl (Zofran) 4 mg IV Q4HP PRN PRN Reason: Nausea And Vomiting [facility]) [facility] Last Admin: 07/24/17 07:50 Dose: 40 mg Paroxetine HCl (Paxil) 20 mg PO DAILY [facility] Last Admin: 07/24/17 08:49 Dose: 20 mg Prednisone (Prednisone) 60 mg PO [facility] Sodium Chloride (Saline Flush) 10 ml IV Q8 [facility] Last Admin: 07/24/17 20:51 Dose: 10 ml Medical - PN: A/P (1) Acute exacerbation of chronic obstructive airways disease Status: Acute Current Visit: Yes (2) Acute on chronic respiratory failure with hypoxemia Status: Acute Current Visit: Yes (3) Type 2 diabetes mellitus Status: Acute Current Visit: Yes (4) Non-traumatic compression fracture of T6 thoracic vertebra Status: Acute Current Visit: No - Narrative A/P Narrative: 62-year-old female ongoing tobacco abuse, COPD, presents with COPD exacerbation , her third presentation the last 3 days. COPD with exacerbation. Patient had been out of her Pulmicort and DuoNeb, had not been using them at home. She did not fill her azithromycin or prednisone from ER visits. Unclear trigger, no evidence of pneumonia, could be viral illness exacerbated by ongoing tobacco use. Slowly improving, continues to do so on Sunday, though still with significant airflow limitation. Plan: Continue with Q4 hours DuoNeb, Q2 PRN albuterol, Pulmicort, azithromycin (through 07/26) for acute exacerbation of chronic bronchitis; starting prednisone 07/25. Acute on chronic respiratory failure with hypoxemia. Resolved. On 3 L nasal cannula at baseline, now with normal saturation on room air here. Plan: Supplemental oxygen as needed, maintain sats 88-92%, avoid over correcting hypoxia given her known CO2 retention. Treat COPD as above. Leukocytosis. May be related to steroids and stress. No evidence of infiltrate on chest x-ray. Stable at last check 07/24. Plan: Monitor, recheck 07/26 Type 2 diabetes. Patient on metformin and Tradjenta as an outpatient. These have been filled fairly recently. CBG elevated due to steroids and some dietary indiscretion. Metformin being held with acute illness. Plan: Control carbohydrate diet, Accu-Cheks, sliding scale insulin; holding other meds while acutely ill. Will begin HS lantus. Hypertension. Some elevated blood pressure with respiratory distress. Home meds are now reconciled. Plan: Continue home regimen. Tobacco abuse. Patient was counseled on cessation. She is amenable to stopping at this time. Plan: Tobacco cessation consult. Chronic pain. The patient is on Soma as well as [place] at home. Plan: Continue home regimen. Hyperkalemia. Resolved. Patient was on 20 mEq twice daily of potassium. Plan: Continue to hold supplementation, follow. Medical - PN: Qual - VTE Deep Vein Thrombosis/Pulmonary Embolism Present on Admission: No
[2017-07-25] MEDS: LEVOTHYROXINE SODIUM 112 MCG TABLET PO SCH (07:34)
[2017-07-25] MEDS: 0.9 % SODIUM CHLORIDE 10 ML SYRINGE IV SCH ×3 (07:34→22:27)
[2017-07-25] MEDS: PANTOPRAZOLE 40 MG TABLET PO SCH (07:34)
[2017-07-25] MEDS: INSULIN LISPRO 1 UNIT/0.01 ML UNIT SQ SCH ×4 (07:49→20:48)
[2017-07-25] MEDS: GABAPENTIN 300 MG CAPSULE PO SCH ×3 (07:55→20:58)
[2017-07-25] MEDS: amLODIPine 5 MG TABLET PO SCH ×2 (07:55→08:21)
[2017-07-25] MEDS: ENOXAPARIN 40 MG/0.4 ML SYRINGE SQ SCH ×2 (07:55→08:21)
[2017-07-25] MEDS: AZITHROMYCIN 250 MG TABLET PO SCH (07:55)
[2017-07-25] MEDS: LISINOPRIL 10 MG TABLET PO SCH ×2 (07:55→08:21)
[2017-07-25] MEDS: PARoxetine 20 MG TABLET PO SCH ×2 (07:55→08:21)
[2017-07-25] MEDS ORDERED: ALBUTEROL SULFATE 2.5 MG/3 ML NEBULIZER NEB PRN (07:56)
[2017-07-25] MEDS ORDERED: BISACODYL 10 MG SUPP.RECT PR PRN (07:56)
[2017-07-25] MEDS ORDERED: ONDANSETRON 4 MG/2 ML VIAL IV PRN (07:56)
[2017-07-25] MEDS ORDERED: DEXTROSE 31 GM ORAL.SUSP PO PRN (07:56)
[2017-07-25] MEDS ORDERED: DEXTROSE 50% 50 ML VIAL IV PRN (07:56)
[2017-07-25] MEDS ORDERED: ACETAMINOPHEN 325 MG TABLET PO PRN (07:56)
[2017-07-25] MEDS ORDERED: predniSONE 20 MG TABLET PO SCH (08:00)
[2017-07-25] MEDS: guaiFENesin 600 MG TAB.SR.12H PO PRN ×2 (08:20→18:38)
[2017-07-25] MEDS: predniSONE 20 MG TABLET PO SCH (08:21)
[2017-07-25] MEDS ORDERED: AZITHROMYCIN 250 MG TABLET PO SCH (09:00)
[2017-07-25] MEDS: NICOTINE 14 MG PATCH TOPICAL SCH (09:00)
[2017-07-25] MEDS: MONTELUKAST 10 MG TABLET PO SCH (20:58)
[2017-07-25] MEDS: INSULIN GLARGINE, HUMAN 1 UNIT/0.01 ML SQ SCH (20:58)
[2017-07-26] MEDS: CARISOPRODOL 350 MG TABLET PO PRN ×4 (00:41→22:20)
[2017-07-26] MEDS: HYDROcodone/APAP 10/325MG TABLET PO PRN ×4 (00:41→22:20)
[2017-07-26] MEDS: IPRATROPIUM/ALBUTEROL 3 ML AMPUL.NEB NEB SCH ×6 (04:44→23:13)
[2017-07-26] MEDS: 0.9 % SODIUM CHLORIDE 10 ML SYRINGE IV SCH ×3 (05:57→20:23)
[2017-07-26 06:13] LABS: Basophils # (Auto) 0 K/mcL (0.0-0.3); Basophils % (Auto) 0.2 % (0.0-2.0); Eosinophils # (Auto) 0.3 K/mcL (0.0-0.7); Granulocytes % (Auto) 71.4 % (38.0-78.0); Lymphocytes # (Auto) 2.3 K/mcL (1.5-4.8); Lymphocytes % (Auto) 18.1 % (15.5-49.0); Mean Cell Volume 94.7 fL (80.0-100.0); Mean Corpuscular HGB Conc 32.7 g/dL (31.0-36.0); Monocytes # (Auto) 1.1 K/mcL (0.1-0.9); Monocytes % (Auto) 8.3 % (1.0-12.0); Platelet Count 519 K/mcL (140-440); RBC 3.13 M/mcL (4.00-5.20); Red Cell Distribution Width 14.9 % (11.5-14.5)
[2017-07-26 06:39] LABS: ALT/SGPT 11 U/l (0-40); Albumin 3.4 gm/dL (3.2-5.2); Albumin/Globulin Ratio 1.5 (1.0-2.3); Alkaline Phosphatase 66 U/L (39-117); Bilirubin,Direct < 0.2 mg/dL (0.0-0.3); Blood Urea Nitrogen 29 mg/dl (8-23); Gamma Glutamyl Transpeptidase 71 U/L (5-36); Magnesium 1.9 mg/dL (1.6-2.5); Uric Acid 4.8 mg/dL (2.5-8.0)
[2017-07-26] MEDS: PANTOPRAZOLE 40 MG TABLET PO SCH (07:11)
[2017-07-26] MEDS: LEVOTHYROXINE SODIUM 112 MCG TABLET PO SCH (07:11)
[2017-07-26] MEDS: BUDESONIDE 0.5 MG/2 ML AMPUL.NEB NEB SCH ×2 (07:19→19:34)
[2017-07-26] MEDS: amLODIPine 5 MG TABLET PO SCH (09:20)
[2017-07-26] MEDS: ENOXAPARIN 40 MG/0.4 ML SYRINGE SQ SCH (09:20)
[2017-07-26] MEDS: LISINOPRIL 10 MG TABLET PO SCH (09:20)
[2017-07-26] MEDS: predniSONE 20 MG TABLET PO SCH (09:20)
[2017-07-26] MEDS: INSULIN LISPRO 1 UNIT/0.01 ML UNIT SQ SCH ×4 (09:21→20:14)
[2017-07-26] MEDS: PARoxetine 20 MG TABLET PO SCH (09:21)
[2017-07-26] MEDS: GABAPENTIN 300 MG CAPSULE PO SCH ×2 (09:21→20:23)
[2017-07-26] MEDS: guaiFENesin 600 MG TAB.SR.12H PO PRN ×2 (09:29→20:23)
[2017-07-26] MEDS: NICOTINE 14 MG PATCH TOPICAL SCH (11:15)
--- NOTE | 2017-07-26 11:31 | Internal Med Progress Note ---
Medical - PN: Subj Patient information: Note initiated : 07/26/17 at 11:10 am Service Date, if different from initiated Date: [] Patient: Zakia Gibson 62 y/o F admitted on 07/22/17 for SOB/COPD Exacerbation. Chief Complaint: [] Interval history: Jul 22 Patient is a 62-year-old female with chronic respiratory failure, on oxygen at home, hypertension, type 2 diabetes, depression, ongoing tobacco abuse who presents to the ED for the third time in the last 3 days with complaints of dyspnea. Patient was first seen on the with worsening shortness of breath. She received steroids and nebulizer treatment with some improvement. Was prescribed azithromycin and steroids. She returned the following day on Sunday. She had not yet filled his previous prescription. In addition her usual prescriptions for DuoNeb and Pulmicort had run out and she had not been using those for at least a few days. She received further breathing treatments and IV steroids for some improvement, did not wish to be hospitalized and was discharged from the ED. She returns early this morning with ongoing shortness of breath. She states this all started about 3 days ago. She said minimal sputum production, when she does have sputum its whitish in nature. She is normally on 3 L at home, has turned that up at times due to shortness of breath. She denies any fever or chills, no nausea or vomiting, no abdominal pain, no chest pain, no rhinorrhea or nasal congestion. She does complain of back pain, which is chronic due to known compression fractures. She denies any dysuria, changes in urinary habits, no rashes. She did receive a flu shot this year. She continues to smoke, "at least" half pack a day. In the emergency department, she had marked decrease aeration, pursed lip breathing with tripoding posture. She received DuoNeb, steroids with some improvement, has agreed to hospitalization for further treatment of her acute exacerbation of COPD. Jul 1 Slowly improved over the day yesterday with steroids and aggressive breathing treatments. This morning breathing more comfortably. Still leaned over her bedside tray to help respirations when I see her today. Not really coughing up much. No fever or chills, no chest pain. Jul 2 Continues to slowly improve. Still with resting tachycardia into 120's, but no longer requiring O2 during the day, wearing at night. Starting to mobilize secretions. No fever and chills. CBG running high, but had non-diet cola yesterday evening. Jul 25 Appetite improving, continues to slowly improve. Pulse is now down into the low 100s, occasionally high 90s. Significantly decreased from 130s and 140s at presentation. Still with significant wheezing. Reinforced smoking cessation today. Changed from Solu-Medrol to 60 mg daily of prednisone today. Jul 26 Patient seen examined, chart reviewed, labs improving, still has some leucocytosis, she is still having shortness of breath, but seems to be improved , her exam shows she still has some wheeze and poor air entry bilaterally, she is back to her baseline oxygen needs She is on prednisone 60now, Still sob with ambulation plan to continue present treatment and see how she does, in AM, get therapy to evaluate her. Pertinent ROS: Denies headache, dizziness Denies chest pain, palpitations Present cough and shortness of breath both improving. Denies abdominal pain, nausea or vomiting. - Constitutional Vitals: Vital Signs Temp Pulse Resp BP Pulse Ox 97.5 F 98 H 22 149/83 95 07/26/17 07:56 07/26/17 07:20 07/26/17 07:56 07/26/17 07:56 07/26/17 07:56 Period Temp Pulse Resp BP Sys/Gutierrez Pulse Ox Last 24 Hr 97.5 F-98.7 F 98-119 18-22 137-159/70-83 93-100 Intake and Output 07/25/17 07/26/17 07/26/17 21:59 05:59 13:59 Intake Total 1180 / 1180 240 / 240 Output Total 200 / 200 Balance 980 / 980 240 / 240 Weight 125 lb Intake & Output: Intake & Output 07/25/17 07/26/17 07/26/17 21:59 05:59 13:59 Intake Total 1180 / 1180 240 / 240 Output Total 200 / 200 Balance 980 / 980 240 / 240 Weight 125 lb Intake: Oral 1180 / 1180 240 / 240 Output: Void Amount 200 / 200 Other: Meal Dinner Percent of Meal Consumed 100% Feeding Ability Independent # Voids 1 1 Exam: Constitutional; Afebrile, cooperative, alert, not in distress. Eyes- No icterus, , No periorbital swelling Ears- Ext ear normal, hearing normal to conversation. Neck- Midline trachea, supple Respiratory system: Air Entry equal on both sides,but batsheva dimishd, mild exp wheezing, prolonged exp phase. CVS- Rate rhythm regular, S1,S2 heard, no gallop, no rub. 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 Medical - PN: Obj Da - Labs CBC & Chem 7: 07/26/17 04:50 07/26/17 04:50 Labs: Abnormal Lab Results 07/26/17 07/26/17 07/25/17 04:50 04:50 05:40 WBC 12.8 H RBC 3.13 L Hgb 9.7 L Hct 29.6 L RDW 14.9 H Plt Count 519 H MPV 7.0 L Gran % Lymph % (Auto) Gran # 9.1 H Lymph # (Auto) [place] # (Auto) 1.1 H Chloride 95 L Carbon Dioxide 33 H BUN 29 H 30 H Glucose 121 H 254 H Phosphorus 1.8 L GGT 71 H Total Protein 5.6 L Triglycerides 169 H 07/24/17 07/24/17 03:50 03:50 WBC 14.6 H RBC 3.08 L Hgb 9.5 L Hct 29.2 L RDW Plt Count 610 H MPV 6.9 L Gran % 94.3 H Lymph % (Auto) 2.7 L Gran # 13.8 H Lymph # (Auto) 0.4 L [place] # (Auto) Chloride 93 L Carbon Dioxide BUN 38 H Glucose 328 H Phosphorus GGT Total Protein Triglycerides Meds: Medications Acetaminophen (Tylenol) 650 mg PO Q6HP PRN PRN Reason: PAIN/FEVER > 101 Hydrocodone Bitart/Acetaminophen ([place] 10/325mg) 2 tab PO QIDP PRN PRN Reason: Pain Last Admin: 07/26/17 07:11 Dose: 2 tab Albuterol Sulfate (Ventolin) 2.5 mg NEB Q2HP PRN PRN Reason: Shortness Of Breath Albuterol/Ipratropium (Duoneb) 3 ml NEB Q4HRT [facility] Last Admin: 07/26/17 07:19 Dose: 3 ml Amlodipine Besylate (Norvasc) 5 mg PO DAILY [facility] Last Admin: 07/26/17 09:20 Dose: 5 mg Bisacodyl (Dulcolax) 10 mg SD DAILYP PRN PRN Reason: Constipation Budesonide (Pulmicort) 0.5 mg NEB Q12 [facility] Last Admin: 07/26/17 07:19 Dose: 0.5 mg Carisoprodol (Soma) 350 mg PO QIDP PRN PRN Reason: Muscle spasms Last Admin: 07/26/17 07:11 Dose: 350 mg Dextrose (Dextrose 50%) 0 ml IV UD PRN PRN Reason: Hypoglycemia Diagnostic Test (Pha) (Accu-Chek) 1 each FS [facility] Last Admin: 07/26/17 07:10 Dose: 1 each Enoxaparin Sodium (Lovenox) 40 mg SQ DAILY [facility] Last Admin: 07/26/17 09:20 Dose: 40 mg Gabapentin (Neurontin) 300 mg PO BID [facility] Last Admin: 07/26/17 09:21 Dose: 300 mg Glucose (Insta-Glucose) 15 gm PO PRN PRN PRN Reason: Hypoglycemia Guaifenesin (Mucinex) 1,200 mg PO BIDP PRN PRN Reason: Congestion Last Admin: 07/26/17 09:29 Dose: 1,200 mg Insulin Glargine (Lantus) 10 unit SQ [facility] Last Admin: 07/25/17 20:58 Dose: 10 unit Insulin Human Lispro (Humalog) 0 unit SQ [facility] PRN Reason: Protocol Last Admin: 07/26/17 09:21 Dose: Not Given [facility] Last Admin: 07/26/17 07:11 Dose: 112 mcg Lisinopril (Zestril) 10 mg PO DAILY [facility] Last Admin: 07/26/17 09:20 Dose: 10 mg Montelukast Sodium (Singular) 10 mg PO [facility] Last Admin: 07/25/17 20:58 Dose: 10 mg Nicotine (Nicoderm) 14 mg TOPICAL DAILY@1000 [facility] Last Admin: 07/25/17 09:00 Dose: 14 mg Ondansetron HCl (Zofran) 4 mg IV Q4HP PRN PRN Reason: Nausea And Vomiting Pantoprazole Sodium (Protonix) 40 mg PO QAMAC [facility] Last Admin: 07/26/17 07:11 Dose: 40 mg Paroxetine HCl (Paxil) 20 mg PO DAILY [facility] Last Admin: 07/26/17 09:21 Dose: 20 mg Prednisone (Prednisone) 60 mg PO [facility] Last Admin: 07/26/17 09:20 Dose: 60 mg Sodium Chloride (Saline Flush) 10 ml IV Q8 [facility] Last Admin: 07/26/17 05:57 Dose: Not Given Medical - PN: A/P - Time Spent With Patient Total time spent is greater than 50% in coordination of care (as documented) at patient's floor/unit and/or counseling patient: - Narrative A/P Narrative: 62-year-old female ongoing tobacco abuse, COPD, presents with COPD exacerbation , her third presentation the last 3 days. COPD with exacerbation. Patient had been out of her Pulmicort and DuoNeb, had not been using them at home. She did not fill her azithromycin or prednisone from ER visits. Unclear trigger, no evidence of pneumonia, could be viral illness exacerbated by ongoing tobacco use. Slowly improving, continues to do so on Sunday, though still with significant airflow limitation. Plan: Continue with Q4 hours DuoNeb, Q2 PRN albuterol, Pulmicort, azithromycin (through 07/26) for acute exacerbation of chronic bronchitis; starting prednisone 07/25 will likely need a prolonged taper. Acute on chronic respiratory failure with hypoxemia. Resolved. On 3 L nasal cannula at baseline, now with normal saturation on room air here. Plan: Supplemental oxygen as needed, maintain sats 88-92%, Leukocytosis. May be related to steroids and stress. No evidence of infiltrate on chest x-ray. Stable at last check 07/24. Plan: Monitor, trending down, monitor. Type 2 diabetes. Patient on metformin and Tradjenta as an outpatient. These have been filled fairly recently. CBG elevated due to steroids and some dietary indiscretion. Metformin being held with acute illness. Plan: Control carbohydrate diet, Accu-Cheks, sliding scale insulin; holding other meds while acutely ill. Will begin HS lantus. Hypertension. Some elevated blood pressure with respiratory distress. Home meds are now reconciled. Plan: Continue home regimen. Tobacco abuse. Patient was counseled on cessation. She is amenable to stopping at this time. Plan: Tobacco cessation consult. Chronic pain. The patient is on Soma as well as [place] at home. Plan: Continue home regimen. Hyperkalemia. Resolved. Patient was on 20 mEq twice daily of potassium. Plan: Continue to hold supplementation, follow. DVT prophylaxis, Enoxaparin Full code Medical - PN: Qual - VTE Deep Vein Thrombosis/Pulmonary Embolism Present on Admission: No
[2017-07-26] MEDS: INSULIN GLARGINE, HUMAN 1 UNIT/0.01 ML SQ SCH (20:23)
[2017-07-26] MEDS: MONTELUKAST 10 MG TABLET PO SCH (20:23)
[2017-07-27] MEDS: CARISOPRODOL 350 MG TABLET PO PRN ×4 (04:20→22:10)
[2017-07-27] MEDS: IPRATROPIUM/ALBUTEROL 3 ML AMPUL.NEB NEB SCH ×6 (04:21→23:19)
[2017-07-27] MEDS: HYDROcodone/APAP 10/325MG TABLET PO PRN ×4 (04:21→22:11)
[2017-07-27] MEDS: 0.9 % SODIUM CHLORIDE 10 ML SYRINGE IV SCH ×3 (05:06→21:33)
[2017-07-27 06:34] LABS: Basophils # (Auto) 0 K/mcL (0.0-0.3); Basophils % (Auto) 0 % (0.0-2.0); Eosinophils # (Auto) 0.2 K/mcL (0.0-0.7); Eosinophils % (Auto) 1.3 % (0.0-7.0); Granulocytes % (Auto) 78.7 % (38.0-78.0); Lymphocytes # (Auto) 2.4 K/mcL (1.5-4.8); Lymphocytes % (Auto) 15.5 % (15.5-49.0); Mean Cell Volume 95.2 fL (80.0-100.0); Mean Corpuscular Hemoglobin 30.5 pg (26.0-34.0); Monocytes # (Auto) 0.7 K/mcL (0.1-0.9); Monocytes % (Auto) 4.5 % (1.0-12.0); Platelet Count 466 K/mcL (140-440); RBC 3.29 M/mcL (4.00-5.20); Red Cell Distribution Width 14.7 % (11.5-14.5)
[2017-07-27] MEDS: BUDESONIDE 0.5 MG/2 ML AMPUL.NEB NEB SCH ×2 (07:10→19:08)
[2017-07-27 07:14] LABS: ALT/SGPT 12 U/l (0-40); Albumin 3.5 gm/dL (3.2-5.2); Albumin/Globulin Ratio 1.5 (1.0-2.3); Alkaline Phosphatase 69 U/L (39-117); Bilirubin,Direct < 0.2 mg/dL (0.0-0.3); Blood Urea Nitrogen 30 mg/dl (8-23); Gamma Glutamyl Transpeptidase 69 U/L (5-36); Magnesium 1.8 mg/dL (1.6-2.5); Uric Acid 5.2 mg/dL (2.5-8.0)
[2017-07-27] MEDS: INSULIN LISPRO 1 UNIT/0.01 ML UNIT SQ SCH ×4 (07:33→21:32)
[2017-07-27] MEDS: LEVOTHYROXINE SODIUM 112 MCG TABLET PO SCH (07:39)
[2017-07-27] MEDS: predniSONE 20 MG TABLET PO SCH (07:39)
[2017-07-27] MEDS: PANTOPRAZOLE 40 MG TABLET PO SCH (07:40)
[2017-07-27] MEDS: ENOXAPARIN 40 MG/0.4 ML SYRINGE SQ SCH (09:22)
[2017-07-27] MEDS: GABAPENTIN 300 MG CAPSULE PO SCH ×2 (09:23→21:32)
[2017-07-27] MEDS: PARoxetine 20 MG TABLET PO SCH (09:23)
[2017-07-27] MEDS: LISINOPRIL 10 MG TABLET PO SCH (09:23)
[2017-07-27] MEDS: amLODIPine 5 MG TABLET PO SCH (09:23)
[2017-07-27] MEDS: guaiFENesin 600 MG TAB.SR.12H PO PRN ×2 (09:38→21:31)
[2017-07-27] MEDS: NICOTINE 14 MG PATCH TOPICAL SCH (09:44)
[2017-07-27 10:48] LABS: Basophils # (Auto) 0 K/mcL (0.0-0.3); Basophils % (Auto) 0 % (0.0-2.0); Eosinophils # (Auto) 0.3 K/mcL (0.0-0.7); Eosinophils % (Auto) 1.2 % (0.0-7.0); Granulocytes % (Auto) 90.7 % (38.0-78.0); Lymphocytes # (Auto) 1.1 K/mcL (1.5-4.8); Mean Cell Volume 95.3 fL (80.0-100.0); Mean Corpuscular HGB Conc 32.2 g/dL (31.0-36.0); Mean Corpuscular Hemoglobin 30.7 pg (26.0-34.0); Monocytes # (Auto) 0.7 K/mcL (0.1-0.9); Monocytes % (Auto) 3.1 % (1.0-12.0); Platelet Count 496 K/mcL (140-440); RBC 3.35 M/mcL (4.00-5.20); Red Cell Distribution Width 14.8 % (11.5-14.5)
--- NOTE | 2017-07-27 11:18 | Internal Med Progress Note ---
Medical - PN: Subj Patient information: Note initiated : 07/27/17 at 11:16 am Service Date, if different from initiated Date: [] Patient: Zakia Gibson 62 y/o F admitted on 07/22/17 for SOB/COPD Exacerbation. Chief Complaint: [] Interval history: Jul 22 Patient is a 62-year-old female with chronic respiratory failure, on oxygen at home, hypertension, type 2 diabetes, depression, ongoing tobacco abuse who presents to the ED for the third time in the last 3 days with complaints of dyspnea. Patient was first seen on the with worsening shortness of breath. She received steroids and nebulizer treatment with some improvement. Was prescribed azithromycin and steroids. She returned the following day on Sunday. She had not yet filled his previous prescription. In addition her usual prescriptions for DuoNeb and Pulmicort had run out and she had not been using those for at least a few days. She received further breathing treatments and IV steroids for some improvement, did not wish to be hospitalized and was discharged from the ED. She returns early this morning with ongoing shortness of breath. She states this all started about 3 days ago. She said minimal sputum production, when she does have sputum its whitish in nature. She is normally on 3 L at home, has turned that up at times due to shortness of breath. She denies any fever or chills, no nausea or vomiting, no abdominal pain, no chest pain, no rhinorrhea or nasal congestion. She does complain of back pain, which is chronic due to known compression fractures. She denies any dysuria, changes in urinary habits, no rashes. She did receive a flu shot this year. She continues to smoke, "at least" half pack a day. In the emergency department, she had marked decrease aeration, pursed lip breathing with tripoding posture. She received DuoNeb, steroids with some improvement, has agreed to hospitalization for further treatment of her acute exacerbation of COPD. Jul 1 Slowly improved over the day yesterday with steroids and aggressive breathing treatments. This morning breathing more comfortably. Still leaned over her bedside tray to help respirations when I see her today. Not really coughing up much. No fever or chills, no chest pain. Jul 2 Continues to slowly improve. Still with resting tachycardia into 120's, but no longer requiring O2 during the day, wearing at night. Starting to mobilize secretions. No fever and chills. CBG running high, but had non-diet cola yesterday evening. Jul 25 Appetite improving, continues to slowly improve. Pulse is now down into the low 100s, occasionally high 90s. Significantly decreased from 130s and 140s at presentation. Still with significant wheezing. Reinforced smoking cessation today. Changed from Solu-Medrol to 60 mg daily of prednisone today. Jul 26 Patient seen examined, chart reviewed, labs improving, still has some leucocytosis, she is still having shortness of breath, but seems to be improved , her exam shows she still has some wheeze and poor air entry bilaterally, she is back to her baseline oxygen needs She is on prednisone 60now, Still sob with ambulation plan to continue present treatment and see how she does, in AM, get therapy to evaluate her. Jul 27 patient seen examined, no acute overnight events, pt feeling better compared to yesterday, still has chr cough and sob Her labs today showed uptrending leucocytosis, repeat lab showed still worsening leucocytosis to 21 K, will not d/c today get cxr and ua, Pertinent ROS: Denies headache, dizziness Denies chest pain, palpitations chronic cough and shortness of breath Denies abdominal pain, nausea or vomiting. - Constitutional Vitals: Vital Signs Temp Pulse Resp BP Pulse Ox 97.8 F 79 18 144/58 96 07/27/17 08:00 07/27/17 11:08 07/27/17 11:08 07/27/17 08:00 07/27/17 08:00 Period Temp Pulse Resp BP Sys/Gutierrez Pulse Ox Last 24 Hr 97.7 F-98.6 F 70-123 16-20 122-144/58-76 96-100 Intake and Output 07/26/17 07/27/17 07/27/17 21:59 05:59 13:59 Intake Total 800 / 800 240 / 240 440 / 440 Balance 800 / 800 240 / 240 440 / 440 Weight 124 lb Intake & Output: Intake & Output 07/26/17 07/27/17 07/27/17 21:59 05:59 13:59 Intake Total 800 / 800 240 / 240 440 / 440 Balance 800 / 800 240 / 240 440 / 440 Weight 124 lb Intake: Oral 800 / 800 240 / 240 440 / 440 Other: Meal Dinner Breakfast Percent of Meal Consumed 100% 100% Feeding Ability Independent # Voids 6 4 # Bowel Movements 1 Exam: Constitutional; Afebrile, cooperative, alert, not in distress. Eyes- No icterus, , No periorbital swelling Ears- Ext ear normal, hearing normal to conversation. Neck- Midline trachea, supple Respiratory system: Air Entry equal on both sides, No crackles or wheezing, no rhonchi. (air entry better today) CVS- Rate rhythm regular, S1,S2 heard, no gallop, no rub. 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 Medical - PN: Obj Da - Labs CBC & Chem 7: 07/27/17 10:10 07/27/17 04:19 Labs: Abnormal Lab Results 07/27/17 07/27/17 07/27/17 10:10 04:19 04:19 WBC 21.8 H 15.8 H RBC 3.35 L 3.29 L Hgb 10.3 L 10.0 L Hct 32.0 L 31.3 L RDW 14.8 H 14.7 H Plt Count 496 H 466 H MPV 7.0 L 7.3 L Gran % 90.7 H 78.7 H Lymph % (Auto) 5.0 L Gran # 19.8 H 12.4 H Lymph # (Auto) 1.1 L [place] # (Auto) Chloride Carbon Dioxide 32 H BUN 30 H Glucose 61 L Phosphorus 2.1 L GGT 69 H Total Protein 5.8 L Triglycerides 172 H 07/26/17 07/26/17 07/25/17 04:50 04:50 05:40 WBC 12.8 H RBC 3.13 L Hgb 9.7 L Hct 29.6 L RDW 14.9 H Plt Count 519 H MPV 7.0 L Gran % Lymph % (Auto) Gran # 9.1 H Lymph # (Auto) [place] # (Auto) 1.1 H Chloride 95 L Carbon Dioxide 33 H BUN 29 H 30 H Glucose 121 H 254 H Phosphorus 1.8 L GGT 71 H Total Protein 5.6 L Triglycerides 169 H Meds: Medications Acetaminophen (Tylenol) 650 mg PO Q6HP PRN PRN Reason: PAIN/FEVER > 101 Hydrocodone Bitart/Acetaminophen ([place] 10/325mg) 2 tab PO QIDP PRN PRN Reason: Pain Last Admin: 07/27/17 09:38 Dose: 2 tab Albuterol Sulfate (Ventolin) 2.5 mg NEB Q2HP PRN PRN Reason: Shortness Of Breath Albuterol/Ipratropium (Duoneb) 3 ml NEB Q4HRT [facility] Last Admin: 07/27/17 11:08 Dose: 3 ml Amlodipine Besylate (Norvasc) 5 mg PO DAILY [facility] Last Admin: 07/27/17 09:23 Dose: 5 mg Bisacodyl (Dulcolax) 10 mg IN DAILYP PRN PRN Reason: Constipation Budesonide (Pulmicort) 0.5 mg NEB Q12 [facility] Last Admin: 07/27/17 07:10 Dose: 0.5 mg Carisoprodol (Soma) 350 mg PO QIDP PRN PRN Reason: Muscle spasms Last Admin: 07/27/17 09:38 Dose: 350 mg Dextrose (Dextrose 50%) 0 ml IV UD PRN PRN Reason: Hypoglycemia Diagnostic Test (Pha) (Accu-Chek) 1 each FS [facility] Last Admin: 07/27/17 07:33 Dose: 1 each Enoxaparin Sodium (Lovenox) 40 mg SQ DAILY [facility] Last Admin: 07/27/17 09:22 Dose: 40 mg Gabapentin (Neurontin) 300 mg PO BID [facility] Last Admin: 07/27/17 09:23 Dose: 300 mg Glucose (Insta-Glucose) 15 gm PO PRN PRN PRN Reason: Hypoglycemia Guaifenesin (Mucinex) 1,200 mg PO BIDP PRN PRN Reason: Congestion Last Admin: 07/27/17 09:38 Dose: 1,200 mg Insulin Glargine (Lantus) 10 unit SQ HS [facility] Last Admin: 07/26/17 20:23 Dose: 10 unit Insulin Human Lispro (Humalog) [address] [facility] REPLAC[facility] PRN Reason: Protocol Last Admin: 07/27/17 07:33 Dose: Not Given Levothyroxine Sodium (Synthroid) 112 mcg PO QAMAC [facility]PL[facility] Last Admin: 07/27/17 07:39 Dose: 112 mcg Lisinopril (Zestril) 10 mg PO DAILY [facility] Last Admin: 07/27/17 09:23 Dose: 10 mg Montelukast Sodium (Singular) 10 mg PO HS [facility] Last Admin: 07/26/17 20:23 Dose: 10 mg Nicotine (Nicoderm) 14 mg TOPICAL DAILY@1000 [facility] Last Admin: 07/27/17 09:44 Dose: 14 mg Ondansetron HCl (Zofran) 4 mg IV Q4HP PRN PRN Reason: Nausea And Vomiting [facility] Last Admin: 07/27/17 07:40 Dose: 40 mg Paroxetine HCl (Paxil) 20 mg PO DAILY [facility] Last Admin: 07/27/17 09:23 Dose: 20 mg Prednisone (Prednisone) 60 mg PO [facility] Last Admin: 07/27/17 07:39 Dose: 60 mg Sodium Chloride (Saline Flush) 10 ml IV Q8 [facility] Last Admin: 07/27/17 05:06 Dose: Not Given Medical - PN: A/P - Time Spent With Patient Total time spent is greater than 50% in coordination of care (as documented) at patient's floor/unit and/or counseling patient: - Narrative A/P Narrative: 62-year-old female ongoing tobacco abuse, COPD, presents with COPD exacerbation , her third presentation the last 3 days. COPD with exacerbation. Patient had been out of her Pulmicort and DuoNeb, had not been using them at home. She did not fill her azithromycin or prednisone from ER visits. Unclear trigger, no evidence of pneumonia, could be viral illness exacerbated by ongoing tobacco use. Slowly improving, continues to do so on Sunday, though still with significant airflow limitation. Plan: Continue with Q4 hours DuoNeb, Q2 PRN albuterol, Pulmicort, azithromycin (through 07/26) for acute exacerbation of chronic bronchitis; starting prednisone /3 will likely need a prolonged taper. Acute on chronic respiratory failure with hypoxemia. Resolved. On 3 L nasal cannula at baseline, now with normal saturation on room air here. Plan: Supplemental oxygen as needed, maintain sats 88-92%, Leukocytosis. May be related to steroids and stress. worsening today, Plan: repeat CXR , get UA, check peripheral smear. Type 2 diabetes. Patient on metformin and Tradjenta as an outpatient. These have been filled fairly recently. CBG elevated due to steroids and some dietary indiscretion. Metformin being held with acute illness. Plan: Control carbohydrate diet, Accu-Cheks, sliding scale insulin; holding other meds while acutely ill. Will begin HS lantus. Hypertension. Some elevated blood pressure with respiratory distress. Home meds are now reconciled. Plan: Continue home regimen. Tobacco abuse. Patient was counseled on cessation. She is amenable to stopping at this time. Plan: Tobacco cessation consult. Chronic pain. The patient is on [place] as well as [place] at home. Plan: Continue home regimen. Hyperkalemia. Resolved. Patient was on 20 mEq twice daily of potassium. Plan: Continue to hold supplementation, follow. DVT prophylaxis, Enoxaparin Full code Medical - PN: Qual - VTE Deep Vein Thrombosis/Pulmonary Embolism Present on Admission: No
--- NOTE | 2017-07-27 13:16 | XRay Report ---
CLINICAL INFORMATION: Elevated white blood cell count COMPARISON: 07/22/2017 FINDINGS: Heart size, mediastinum and pulmonary vessels are normal. Small infiltrates have developed in both lateral bases. There are tiny bilateral pleural effusions. IMPRESSION: Small infiltrates developing in both lateral bases Interpreted and Authenticated by: Gerry Danielson 07/27/17
[2017-07-27] MEDS: LEVOFLOXACIN 750 MG/150 ML BAG IV SCH (16:06)
[2017-07-27 16:56] LABS: Appearance,Urine CLEAR; Bacteria,Urine 0 /hpf (0); Bilirubin,Urine NEG (NEG); Color,Urine STRAW; Glucose,Urine (UA) >=500 mg/dL (NEG); Leukocyte Esterase,Urine 25 /uL (NEG); Nitrate,Urine NEG (NEG); Protein,Urine NEG (NEG); Specific Gravity,Urine 1.016 (1.000-1.035); Urine Blood NEG mg/dL (<0.03); Urine RBC 1 /hpf (0-1); Urine Squamous Epithelial Cell 0 /hpf (0-4); Urine WBC 6 /hpf (0-4); Urobilinogen,Urine NEG (NEG)
[2017-07-27] MEDS: MONTELUKAST 10 MG TABLET PO SCH (21:31)
[2017-07-27] MEDS: INSULIN GLARGINE, HUMAN 1 UNIT/0.01 ML SQ SCH (21:32)
[2017-07-28] MEDS: IPRATROPIUM/ALBUTEROL 3 ML AMPUL.NEB NEB SCH ×3 (04:53→10:24)
[2017-07-28] MEDS: 0.9 % SODIUM CHLORIDE 10 ML SYRINGE IV SCH ×2 (05:38→12:41)
[2017-07-28 06:09] LABS: Basophils # (Auto) 0 K/mcL (0.0-0.3); Basophils % (Auto) 0 % (0.0-2.0); Eosinophils # (Auto) 0.2 K/mcL (0.0-0.7); Granulocytes % (Auto) 78.4 % (38.0-78.0); Lymphocytes # (Auto) 2.3 K/mcL (1.5-4.8); Lymphocytes % (Auto) 14.7 % (15.5-49.0); Mean Cell Volume 94.6 fL (80.0-100.0); Mean Corpuscular HGB Conc 32.1 g/dL (31.0-36.0); Mean Corpuscular Hemoglobin 30.4 pg (26.0-34.0); Monocytes # (Auto) 0.9 K/mcL (0.1-0.9); Monocytes % (Auto) 5.9 % (1.0-12.0); Platelet Count 438 K/mcL (140-440); RBC 3.19 M/mcL (4.00-5.20); Red Cell Distribution Width 14.5 % (11.5-14.5)
[2017-07-28 06:40] LABS: ALT/SGPT 14 U/l (0-40); Albumin 3.7 gm/dL (3.2-5.2); Albumin/Globulin Ratio 1.5 (1.0-2.3); Alkaline Phosphatase 69 U/L (39-117); Bilirubin,Direct < 0.2 mg/dL (0.0-0.3); Blood Urea Nitrogen 32 mg/dl (8-23); Gamma Glutamyl Transpeptidase 70 U/L (5-36); Magnesium 1.7 mg/dL (1.6-2.5); Uric Acid 5.5 mg/dL (2.5-8.0)
[2017-07-28] MEDS: LEVOTHYROXINE SODIUM 112 MCG TABLET PO SCH (07:01)
[2017-07-28] MEDS: PANTOPRAZOLE 40 MG TABLET PO SCH (07:01)
[2017-07-28] MEDS: INSULIN LISPRO 1 UNIT/0.01 ML UNIT SQ SCH ×2 (08:39→12:40)
[2017-07-28] MEDS: PARoxetine 20 MG TABLET PO SCH (08:39)
[2017-07-28] MEDS: LEVOFLOXACIN 750 MG/150 ML BAG IV SCH (08:39)
[2017-07-28] MEDS: ENOXAPARIN 40 MG/0.4 ML SYRINGE SQ SCH (08:39)
[2017-07-28] MEDS: GABAPENTIN 300 MG CAPSULE PO SCH (08:40)
[2017-07-28] MEDS: amLODIPine 5 MG TABLET PO SCH (08:40)
[2017-07-28] MEDS: LISINOPRIL 10 MG TABLET PO SCH (08:40)
[2017-07-28] MEDS: BUDESONIDE 0.5 MG/2 ML AMPUL.NEB NEB SCH (10:23)
[2017-07-28] MEDS: HYDROcodone/APAP 10/325MG TABLET PO PRN (10:24)
[2017-07-28] MEDS: NICOTINE 14 MG PATCH TOPICAL SCH (10:25)
[2017-07-28] MEDS: guaiFENesin 600 MG TAB.SR.12H PO PRN (10:25)
[2017-07-28] MEDS: predniSONE 20 MG TABLET PO SCH (10:25)
--- NOTE | 2017-07-28 10:38 | Discharge Summary ---
Medical - DS: Prov Patient information: Note initiated : 07/28/17 at 10:34 am Service Date, if different from initiated Date: [] Patient: Zakia Gibson 62 y/o F admitted on 07/22/17 for SOB/COPD Exacerbation. Chief Complaint: [] Date of admission: 07/22/17 03:16 Discharge date: 07/28/17 Primary care physician: Jazmine Yao Admitting clinician: Alexa Diane Consults: 07/22/17 03:00 Consult to Physician [CONS] Stat Comment: Consulting Provider: Alexa Diane Reason For Exam: Physician to Consult Discharging clinician: Josias Singh Medical - DS: Meds - Discharge Medications Prescriptions: Levofloxacin [Levaquin] 750 mg PO DAILY #5 tab predniSONE [Prednisone] 40 mg PO QAC #23 tab MDD For 3 days Active and Home Medications: Home Medications Albuterol Sulfate [Ventolin] 2 puff INH Q4HP PRN 08/15/16 [History Confirmed Last Taken 01/18/17 2 PUFFS] Gabapentin [Neurontin] 300 mg PO BID 08/15/16 [History Confirmed 07/22/17 Last Taken 01/22/17 09:00 300 mg.] Lisinopril [Zestril] 10 mg PO DAILY #30 tablet 12/23/16 [Rx Confirmed 07/22/17 Last Taken Unknown] Bisacodyl [Dulcolax] 10 mg [place] DAILYP PRN 01/22/17 [History Confirmed 07/22/17 Last Taken Unknown] Budesonide [Pulmicort] 0.5 mg NEB Q12 01/22/17 [History Confirmed 07/22/17 Last Taken 01/18/17 0.5 MG.] Ipratropium/Albuterol [Duoneb] 3 ml NEB Q6 01/22/17 [History Confirmed 07/22/17 Last Taken 01/18/17 0.5 MG.] Levothyroxine [Synthroid] 112 mcg PO DAILY 01/22/17 [History Confirmed 07/22/17 Last Taken 01/22/17 100 MCG] Montelukast [Singular] 10 mg PO HS 01/22/17 [History Confirmed 07/22/17 Last Taken 01/18/17 22:00 10 MG.] Omeprazole [Prilosec] 40 mg PO ACB 01/22/17 [History Confirmed 07/22/17 Last Taken 01/18/17 07:30 40 MG.] PARoxetine HCL [Paxil] 20 mg PO DAILY 01/22/17 [History Confirmed 07/22/17 Last Taken 01/22/17 20 MG.] Prochlorperazine (Pp) 10 mg PO Q6HP PRN 01/22/17 [History Confirmed 07/22/17 Last Taken 06/22/17] amLODIPine [Norvasc] 5 mg PO DAILY 01/22/17 [History Confirmed 07/22/17 Last Taken 01/18/17 5 MG.] Acetaminophen [Non-Aspirin] 325 - 650 mg PO Q4-6HP PRN 01/23/17 [History Confirmed 07/22/17 Last Taken Unknown] metFORMIN [Glucophage] 1,000 mg PO BIDCC #60 tablet 01/24/17 [Rx Confirmed 07/22 Last Taken Unknown] Azithromycin 250 mg PO DAILY #4 tab MDD 4 07/20/17 [Rx Confirmed 07/22/17 Last Taken Unknown] Carisoprodol [Soma] 350 mg PO QIDP PRN 07/22/17 [History Confirmed 07/22/17 Last Taken Unknown] HYDROcodone/ACETAMINOPHEN [[place] 10-325 Tablet] 2 tablet PO QIDP PRN 07/22/17 [ History Confirmed 07/22/17 Last Taken Unknown] Insulin Lispro [HumaLOG] 0 unit SQ ACHS 07/22/17 [History Confirmed 07/22/17 Last Taken Unknown] Linagliptin [Tradjenta] 5 mg PO DAILY 07/22/17 [History Confirmed 07/22/17 Last Taken Unknown] Potassium Chloride [Klor-Con Sprinkle] 20 meq PO BIDCC 07/22/17 [History Confirmed 07/22/17 Last Taken Unknown] predniSONE [Prednisone] 40 mg PO QAMCC MDD For 3 days 07/22/17 [History Confirmed 07/22/17 Last Taken Unknown] Medical - DS: Hosp Hospital course: Ms Gibson Patient is a 62-year-old female with chronic respiratory failure, on oxygen at home, hypertension, type 2 diabetes, depression, ongoing tobacco abuse who presents to the ED for the third time in the last 3 days with complaints of dyspnea. Patient was first seen on the with worsening shortness of breath. She received steroids and nebulizer treatment with some improvement. Was prescribed azithromycin and steroids. She returned the following day on Sunday. She had not yet filled his previous prescription. In addition her usual prescriptions for DuoNeb and Pulmicort had run out and she had not been using those for at least a few days. She received further breathing treatments and IV steroids for some improvement, did not wish to be hospitalized and was discharged from the ED. She returned later with ongoing shortness of breath. She states this all started about 3 days ago. She said minimal sputum production, when she does have sputum its whitish in nature. She is normally on 3 L at home, has turned that up at times due to shortness of breath. In the emergency department, she had marked decrease aeration, pursed lip breathing with tripoding posture. She received DuoNeb, steroids with some improvement, has agreed to hospitalization for further treatment of her acute exacerbation of COPD. COPD: Xray was negative on presentatin, treated with IV solumedrol, duonebs and zithromax, she responded to treatment well and was basck to her baseline. Fernando is back to her usual oxygen need for 3L /m,in Pneumonia: The patient, hospital stay was complicated by new infiltrates in the lungs, she had elevated wbc and x ray suggestive of pna, started on levofloxacin with good response. She will take 5 more days of levofloxacin after discharge. The rest of the stay in the hospital was unremarkable, the patient will be discharged home on a prednisone taper, levoflox. Her medications for duonebs and budesonide are being refilled. At the time of discharge patient is back to baseline resp status, baseline oxygen needs, ambulation is at baseline, she is tolerating po diet well No changes have been made to her home medication list Given her history of non compliance and I will not be too surprised if she is back soon. Discharge diagnosis: COPD exacerbatino, Pneumonia. - Time Spent with Patient Total time spent providing and/or coordinating discharge services: Greater than 30 minutes Medical - DS: Exam - Constitutional Vitals: Vital Signs Temp Pulse Pulse Resp BP BP Pulse Ox 07/28/17 10:32 107 H 18 97 07/28/17 10:28 107 H 18 07/28/17 07:02 98.2 F 16 119/78 96 07/28/17 04:55 94 H 18 07/28/17 04:00 98 F 98 H 18 140/65 98 07/27/17 23:40 96.1 F L 108 H 18 138/60 96 07/27/17 23:20 110 H 20 91 07/27/17 20:00 97.3 F 68 18 127/73 91 07/27/17 19:09 111 H 20 98 07/27/17 16:00 97.2 F 16 116/60 97 07/27/17 15:32 95 H 18 07/27/17 12:00 96.9 F L 16 128/56 91 07/27/17 11:08 79 18 Intake and Output 07/27/17 07/28/17 07/28/17 21:59 05:59 13:59 Intake Total 870 / 870 240 / 240 Output Total 800 / 800 Balance 870 / 870 -560 / -560 Intake: IV 150 / 150 Oral 720 / 720 240 / 240 Output: Void Amount 800 / 800 Other: Meal Dinner Percent of Meal Consumed 100% Feeding Ability Assist with Tray Set Up # Voids 1 Weight 133 lb Additional comments: Constitutional; Afebrile, cooperative, alert, not in distress. Eyes- No icterus, , No periorbital swelling Ears- Ext ear normal, hearing normal to conversation. Neck- Midline trachea, supple Respiratory system: Air Entry equal on both sides, No crackles or wheezing, no rhonchi. CVS- Rate rhythm regular, S1,S2 heard, no gallop, no rub. Abdomen- Soft nontender abdomen, no organomegaly, no tenderness, no guarding or rigidity, [employer]- AOOx3, moving all extremities, no gross focal deficit noted. Medical - DS: Data Labs on day of discharge: Labs from last 24 hours 07/28/17 07/28/17 07/27/17 04:38 04:38 16:33 WBC 15.9 H RBC 3.19 L Hgb 9.7 L Hct 30.2 L MCV 94.6 MCH 30.4 MCHC 32.1 RDW 14.5 Plt Count 438 MPV 7.4 Gran % 78.4 H Lymph % (Auto) 14.7 L [place] % (Auto) 5.9 Eos % (Auto) 1.0 Baso % (Auto) 0 Gran # 12.5 H Lymph # (Auto) 2.3 [place] # (Auto) 0.9 Eos # (Auto) 0.2 Baso # (Auto) 0 Smear Path Review Sodium 136 Potassium 3.8 Chloride 95 L Carbon Dioxide 28 Anion Gap 13.0 BUN 32 H Creatinine 1.2 H GFR Calculation 48 Glucose 180 H Uric Acid 5.5 Calcium 8.2 L Phosphorus 2.7 Magnesium 1.7 Total Bilirubin < 0.2 Direct Bilirubin < 0.2 GGT 70 H AST 15 ALT 14 Alkaline Phosphatase 69 Lactate Dehydrogenase 195 Total Protein 6.1 Albumin 3.7 Globulin 2.4 Albumin/Globulin Ratio 1.5 Triglycerides 190 H Procalcitonin Urine Color Straw Urine Appearance Clear Urine pH 6.0 Ur Specific [place] 1.016 Urine Protein Neg Urine Glucose (UA) >=500 A Urine Ketones Neg Urine Occult Blood Neg Urine Nitrate Neg Urine Bilirubin Neg Urine Urobilinogen Neg Ur Leukocyte Esterase 25 A Urine RBC 1 Urine WBC 6 H Ur Squamous Epith Cells 0 Urine Bacteria 0 Ur Culture Indicated? Yes 07/27/17 07/27/17 07/27/17 10:10 10:10 10:10 WBC 21.8 H RBC 3.35 L Hgb 10.3 L Hct 32.0 L MCV 95.3 MCH 30.7 MCHC 32.2 RDW 14.8 H Plt Count 496 H MPV 7.0 L Gran % 90.7 H Lymph % (Auto) 5.0 L [place] % (Auto) 3.1 Eos % (Auto) 1.2 Baso % (Auto) 0 Gran # 19.8 H Lymph # (Auto) 1.1 L [place] # (Auto) 0.7 Eos # (Auto) 0.3 Baso # (Auto) 0 Smear Path Review Sodium Potassium Chloride Carbon Dioxide Anion Gap BUN Creatinine GFR Calculation Glucose Uric Acid Calcium Phosphorus Magnesium Total Bilirubin Direct Bilirubin GGT AST ALT Alkaline Phosphatase Lactate Dehydrogenase Total Protein Albumin Globulin Albumin/Globulin Ratio Triglycerides Procalcitonin < 0.10 Urine Color Urine Appearance Urine pH Ur Specific [place] Urine Protein Urine Glucose (UA) Urine Ketones Urine Occult Blood Urine Nitrate Urine Bilirubin Urine Urobilinogen Ur Leukocyte Esterase Urine RBC Urine WBC Ur Squamous Epith Cells Urine Bacteria Ur Culture Indicated? Medical - DS: A/P - Patient/Caregiver Discharge Instructions Activity: increase activity as tolerated Diet: Consistent Carbohydrate Additional Instructions: Take antibiotics for 5 more days Take your prendisone with food as instructed. Take your nebulizer treatmens every 6 hrs for duonebs and every 12 hrs for pulmicort Please do not smoke again , or use any substances. Avoid using opiates/ muscle relaxants, talk to your pcp to see if you can be weaned off these medications. Follow up with PCP in 3-5 d ays for follow up Go to the ER if worsening symptoms shortness of breath or any other acute concerns. - Follow up Plan Follow up with: Jazmine Yao MD [Primary Care Provider] - Disposition: Home Health Service Prognosis: Fair Rehab Potential: Fair I certify that the patient requires SNF services: No Overall status at discharge: patient is progressing back to baseline Medical - DS: Qual - VTE Deep Vein Thrombosis/Pulmonary Embolism Present on Admission: No
== END 2017-07-28 14:30 | disposition home health service (06) | DRG 190 ==
LOC: ED 00:52 → ICU 03:15 → MEDSUR 07-25 14:15
PROVIDERS: ADMIT Internal Medicine; ATTEND Internal Medicine

== ENCOUNTER 2017-08-12 11:49 | Inpatient (IN) ==
[2017-08-12] MEDS ORDERED: LACTATED RINGERS 1,000 ML IV ONE (12:06)
--- NOTE | 2017-08-12 12:10 | Emergency Department Note ---
SOB HPI - General Chief Complaint: Shortness of Breath/Dyspnea Stated Complaint: SOB Time Seen by Provider: 08/12/17 12:06 Source: EMS Mode of arrival: EMS Limitations: no limitations - History of Present Illness This patient returns emergency room. She was seen yesterday with COPD and wheezing. She is on prednisone 60 but no antibiotics. She is not coughing much been continuing to wheeze. Chest x-ray is negative. - Related Data Home Medications Medication Instructions Recorded Confirmed Albuterol Sulfate [Ventolin] 2 puff INH Q4HP PRN 08/15/16 07/31/17 Gabapentin [Neurontin] 300 mg PO BID 08/15/16 07/31/17 Bisacodyl [Dulcolax] 10 mg [place] DAILYP PRN 01/22/17 07/31/17 Levothyroxine [Synthroid] 112 mcg PO DAILY 01/22/17 07/31/17 Montelukast [Singular] 10 mg PO HS 01/22/17 07/31/17 Omeprazole [Prilosec] 40 mg PO ACB 01/22/17 07/31/17 PARoxetine HCL [Paxil] 20 mg PO DAILY 01/22/17 07/31/17 Prochlorperazine (Pp) 10 mg PO Q6HP PRN 01/22/17 07/31/17 amLODIPine [Norvasc] 5 mg PO DAILY 01/22/17 07/31/17 Acetaminophen [Non-Aspirin] 325 - 650 mg PO Q4-6HP PRN 01/23/17 07/31/17 Carisoprodol [Soma] 350 mg PO QIDP PRN 07/22/17 07/31/17 HYDROcodone/ACETAMINOPHEN [[place] 2 tablet PO QIDP PRN 07/22/17 07/31/17 10-325 Tablet] Insulin Lispro [Humalog] 0 unit SQ ACHS 07/22/17 07/31/17 Linagliptin [Tradjenta] 5 mg PO DAILY 07/22/17 07/31/17 Potassium Chloride [Klor-Con 20 meq PO BIDCC 07/22/17 07/31/17 Sprinkle] Previous Rx's Medication Instructions Recorded Lisinopril [Zestril] 10 mg PO DAILY #30 tablet 12/23/16 metFORMIN [Glucophage] 1,000 mg PO BIDCC #60 tablet 01/24/17 Azithromycin 250 mg PO DAILY #4 tab MDD 4 07/20/17 Budesonide [Pulmicort] 0.5 mg NEB Q12 #60 ampul.neb 07/28/17 Ipratropium/Albuterol [Duoneb] 3 ml NEB Q6 #120 ampul.neb 07/28/17 Levofloxacin [Levaquin] 750 mg PO DAILY #5 tab 07/28/17 predniSONE [Prednisone] 40 mg PO [facility] #23 tab MDD For 3 07/28/17 days Allergies Allergy/AdvReac Type Severity Reaction Status Date / Time Penicillins Allergy Mild Rash Verified 08/12/17 11:51 Review of Systems All systems ED: reviewed and negative except as stated. Past Medical History - Past Medical History [facility] Narrative: Medical History Bronchitis (Acute) Acute exacerbation of chronic obstructive airways disease (Acute) Contusion, hip (Acute) Infected sebaceous cyst of skin (Acute) Community acquired pneumonia (Acute) COPD (chronic obstructive pulmonary disease) with acute bronchitis (Acute) Tobacco abuse disorder (Chronic) Severe sepsis (Acute) HTN (hypertension), malignant (Resolved) Hypercarbia (Chronic) Non-traumatic compression fracture of T6 thoracic vertebra (Acute) Acute on chronic respiratory failure with hypoxemia (Acute) Pulmonary edema (Resolved) Electrolyte disorder (Resolved) COPD exacerbation (Acute) Opiate or related narcotic overdose (Acute) COPD with exacerbation (Acute) COPD (chronic obstructive pulmonary disease) (Acute) Bronchitis (Acute) COPD (chronic obstructive pulmonary disease) (Acute) Diarrhea (Acute) Right upper lobe pneumonia (Acute) Pneumonia (Acute) Acute opioid intoxication delirium with moderate or severe use disorder (Acute) COPD (chronic obstructive pulmonary disease) with acute bronchitis (Acute) Hypokalemia (Acute) Altered mental status (Acute) Drug effect (Acute) Non compliance w medication regimen (Acute) Diabetes (Chronic) Hypokalemia (Acute) COPD exacerbation (Acute) Hypertensive urgency (Acute) Asthma with exacerbation (Acute) Respiratory failure (Acute) SIRS (systemic inflammatory response syndrome) (Acute) CHF (congestive heart failure) (Acute) Laceration (Acute) Type 2 diabetes mellitus (Acute) Chronic respiratory failure with hypoxia (Acute) COPD exacerbation (Acute) Medical history: Reports: arthritis, COPD (Severe on oxygen), DM, hypertension, osteoporosis, thyroid disease Psychiatric history: Reports: depression [employer]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 Absent: distention, tenderness Neurological: Present: alert Psychiatric: Present: normal affect, normal mood Skin: Present: warm, dry, intact Course Vital Signs Temperature 99.3 F H 08/12/17 11:51 Pulse Rate 125 H 08/12/17 11:51 Respiratory Rate 24 H 08/12/17 11:51 Blood Pressure 170/83 08/12/17 11:51 Pulse Oximetry (%) 90 08/12/17 11:51 Temperature 99.3 F H 08/12/17 11:51 Pulse Rate 122 H 08/12/17 14:47 Respiratory Rate 28 H 08/12/17 14:47 Blood Pressure 182/74 08/12/17 14:01 Pulse Oximetry (%) 92 08/12/17 14:47 Shortness of Breath/Dyspnea - [facility] Narrative Medical decision making narrative: This patient COPD exacerbation seems moderately severe. Below peak flow better than 30. Her O2 sats also dropped into the mid 70s when she is up and active. She seems very weak. She will be admitted to the hospital. - Lab Data Lab results reviewed: Yes I reviewed the patient's lab results. Result diagrams: 08/12/17 12:09 08/12/17 12:09 Lab Results 08/12/17 08/12/17 08/12/17 Range/Units 12:09 12:09 12:09 WBC 13.2 H (4.5-11.0) K/mcL RBC 3.62 L (4.00-5.20) M/mcL Hgb 11.1 L (12.0-15.0) g/dL Hct 34.2 L (36.0-48.0) % MCV 94.5 (80.0-100.0) fL MCH 30.6 (26.0-34.0) pg MCHC 32.4 (31.0-36.0) g/dL RDW 13.6 (11.5-14.5) % Plt Count 505 H (140-440) K/mcL MPV 7.1 L (7.4-10.4) fL Gran % 86.1 H (38.0-78.0) % Lymph % (Auto) 8.3 L (15.5-49.0) % [place] % (Auto) 4.6 (1.0-12.0) % Eos % (Auto) 0.7 (0.0-7.0) % Baso % (Auto) 0.3 (0.0-2.0) % Gran # 11.3 H (1.8-8.0) K/mcL Lymph # (Auto) 1.1 L (1.5-4.8) K/mcL [place] # (Auto) 0.6 (0.1-0.9) K/mcL Eos # (Auto) 0.1 (0.0-0.7) K/mcL Baso # (Auto) 0 (0.0-0.3) K/mcL VBG Lactic Acid 1.2 (0.5-2.2) mmol/L Sodium 139 (133-145) mmol/L Potassium 3.7 (3.3-5.1) mmol/L Chloride 95 L (96-108) mmol/L Carbon Dioxide 34 H (22-30) mmol/L Anion Gap 10.0 (8-16) BUN 8 (8-23) mg/dl Creatinine 0.7 (0.6-1.1) mg/dl GFR Calculation 92 Glucose 295 H (70-105) mg/dL Calcium 8.7 (8.6-10.4) mg/dl Total Bilirubin 0.3 (0.0-1.0) mg/dL AST 11 (0-37) U/l ALT 14 (0-40) U/l Alkaline Phosphatase 146 H (39-117) U/L Total Protein 6.2 (5.9-8.4) gm/dL Albumin 3.6 (3.2-5.2) gm/dL Globulin 2.6 (2.2-3.7) gm/dL Albumin/Globulin Ratio 1.4 (1.0-2.3) - Radiology Data Radiology results reviewed: Yes I reviewed the patient's radiology results. Disposition Pt seen by GENERAL ASSIGNMENT REPORTER/PA only: No Clinical Impression: COPD exacerbation Disposition: Xfer As Inpt ([facility]) Condition: Fair Referrals: Jazmine Yao MD [Primary Care Provider] - Time of Disposition: 14:50
--- NOTE | 2017-08-12 12:42 | XRay Report ---
INDICATION: Dyspnea TECHNIQUE: AP chest x-ray, upright portable COMPARISON: 08/11/2017, 08/01/2017, 07/31/2017 FINDINGS:Lungs are negative. No parenchymal infiltrate or mass. Heart size and vascularity are within normal limits. No acute or focal abnormality. No significant interval change. IMPRESSION: 1. Negative AP portable chest x-ray 2. No interval change Interpreted and Authenticated by: Gerry Fitch 08/12/17
[2017-08-12 12:52] LABS: Basophils # (Auto) 0 K/mcL (0.0-0.3); Basophils % (Auto) 0.3 % (0.0-2.0); Eosinophils # (Auto) 0.1 K/mcL (0.0-0.7); Eosinophils % (Auto) 0.7 % (0.0-7.0); Granulocytes % (Auto) 86.1 % (38.0-78.0); Lymphocytes # (Auto) 1.1 K/mcL (1.5-4.8); Lymphocytes % (Auto) 8.3 % (15.5-49.0); Mean Cell Volume 94.5 fL (80.0-100.0); Mean Corpuscular HGB Conc 32.4 g/dL (31.0-36.0); Mean Corpuscular Hemoglobin 30.6 pg (26.0-34.0); Monocytes # (Auto) 0.6 K/mcL (0.1-0.9); Monocytes % (Auto) 4.6 % (1.0-12.0); Platelet Count 505 K/mcL (140-440); RBC 3.62 M/mcL (4.00-5.20); Red Cell Distribution Width 13.6 % (11.5-14.5)
[2017-08-12 13:07] LABS: ALT/SGPT 14 U/l (0-40); Albumin 3.6 gm/dL (3.2-5.2); Albumin/Globulin Ratio 1.4 (1.0-2.3); Alkaline Phosphatase 146 U/L (39-117); Blood Urea Nitrogen 8 mg/dl (8-23)
--- NOTE | 2017-08-12 15:29 | Internal Med History&Physical ---
Medical - H&P: HPI Patient information: Note initiated : 08/12/17 at 3:26 pm Service Date, if different from initiated Date: [] Patient: Zakia Gibson a 62 y/o F admitted on for Shortness of breath. Chief Complaint: [] History of present illness: Ms. Gibson is a 62 year old Female with h/o copd on oxygen at home, still a smoker, htn, dm, chr pain, chr non compliance with treatments, presents to the ER with shortness of breath going on for the last few days, as per the sho reveiw she notes she has been short of breath since last discharge which was on 07/28/17, she has had 4 visits to the Er, and 2 back to back visits today, yesterday . She notes she is short of breath, with chest tightness,no chest pain, has dry cough, increased fatigue and decreased effort tolerance. She was here yesterday and was started on steroids, she notes she is taking those, she has ran out of all medications except duonebs, she notes she has been using it all night, without much help. She denies any sick contacts, The patient has not followed up with her PCP since her last discharge, and despite multiple episodes of counselling, still smokes. Her sister who is the power of real estate attorney was also at bed side today The patient wishes to be full code, I explained her and her sister her overall poor prognosis given her severe uncontrolled COPD, they verbalized understanding. In the Er she was tachycardic and tachypenic, Her ABG showed ph 7.39/71/60, on oxygen. The patient has poor air entry, chr leucocytosis and neg Chest x ray. She had a low grade temp. The patient is Blood gas shows much worse Co2 than her previous Co2 values, and given her increased work of breating, will admit her to the hospitak, to pcu status for further management. All systems: reviewed and no additional remarkable complaints except as stated ( as per HPI, she also has chr back pain) Medical - H&P: PMH Medical history: Medical History Bronchitis (Acute) Acute exacerbation of chronic obstructive airways disease (Acute) Contusion, hip (Acute) Infected sebaceous cyst of skin (Acute) Community acquired pneumonia (Acute) COPD (chronic obstructive pulmonary disease) with acute bronchitis (Acute) Tobacco abuse disorder (Chronic) Severe sepsis (Acute) HTN (hypertension), malignant (Resolved) Hypercarbia (Chronic) Non-traumatic compression fracture of T6 thoracic vertebra (Acute) Acute on chronic respiratory failure with hypoxemia (Acute) Pulmonary edema (Resolved) Electrolyte disorder (Resolved) COPD exacerbation (Acute) Opiate or related narcotic overdose (Acute) COPD with exacerbation (Acute) COPD (chronic obstructive pulmonary disease) (Acute) Bronchitis (Acute) COPD (chronic obstructive pulmonary disease) (Acute) Diarrhea (Acute) Right upper lobe pneumonia (Acute) Pneumonia (Acute) Acute opioid intoxication delirium with moderate or severe use disorder (Acute) COPD (chronic obstructive pulmonary disease) with acute bronchitis (Acute) Hypokalemia (Acute) Altered mental status (Acute) Drug effect (Acute) Non compliance w medication regimen (Acute) Diabetes (Chronic) Hypokalemia (Acute) COPD exacerbation (Acute) Hypertensive urgency (Acute) Asthma with exacerbation (Acute) Respiratory failure (Acute) SIRS (systemic inflammatory response syndrome) (Acute) CHF (congestive heart failure) (Acute) Laceration (Acute) Type 2 diabetes mellitus (Acute) Chronic respiratory failure with hypoxia (Acute) COPD exacerbation (Acute) Surgical history: Surgical history: History of cholecystectomy History of tonsillectomy History of myomectomy History of carpal tunnel surgery History of cervical spinal anterior fusion C4-C6 Pertinent family history: Pertinent family history: The patient's mother of cervical cancer. She also had diabetes mellitus as did maternal grandmother. Patient's father of biliary cancer. Social history: Social history: The patient currently smokes, minimum half pack per day. She smoked since age of 18. She has not drink alcohol. uses THC intermittently. Denies use of other substances. Medical - H&P: Meds Home Medications Medication Instructions Recorded Confirmed Type Albuterol Sulfate [Ventolin] 2 puff INH Q4HP PRN 08/15/16 08/12/17 History Gabapentin [Neurontin] 300 mg PO BID 08/15/16 08/12/17 History Lisinopril [Zestril] 10 mg PO DAILY #30 tablet 12/23/16 08/12/17 Rx Bisacodyl [Dulcolax] [address] DAILYP PRN 01/22/17 08/12/17 History Levothyroxine [Synthroid] 112 mcg PO DAILY 01/22/17 08/12/17 History Montelukast [Singular] 10 mg PO HS 01/22/17 08/12/17 History PARoxetine HCL [Paxil] 20 mg PO DAILY 01/22/17 08/12/17 History Prochlorperazine (Pp) 10 mg PO Q6HP PRN 01/22/17 08/12/17 History amLODIPine [Norvasc] 5 mg PO DAILY 01/22/17 08/12/17 History Acetaminophen [Non-Aspirin] 325 - 650 mg PO Q4-6HP PRN 01/23/17 08/12/17 History metFORMIN [Glucophage] 1,000 mg PO BIDCC #60 tablet 01/24/17 08/12/17 Rx Carisoprodol [Soma] 350 mg PO QIDP PRN 07/22/17 08/12/17 History HYDROcodone/ACETAMINOPHEN [Trezevant 2 tablet PO QIDP PRN 07/22/17 08/12/17 History 10-325 Tablet] Insulin Lispro [Humalog] 0 unit SQ ACHS 07/22/17 08/12/17 History Linagliptin [Tradjenta] 5 mg PO DAILY 07/22/17 08/12/17 History Potassium Chloride [Klor-Con 20 meq PO BIDCC 07/22/17 08/12/17 History Sprinkle] Budesonide [Pulmicort] 0.5 mg NEB Q12 #60 ampul.neb 07/28/17 08/12/17 Rx Ipratropium/Albuterol [Duoneb] 3 ml NEB Q6 #120 ampul.neb 07/28/17 08/12/17 Rx predniSONE [Prednisone] 40 mg PO [facility] #23 tab MDD For 3 07/28/17 08/12/17 Rx days Allergies Allergy/AdvReac Type Severity Reaction Status Date / Time Penicillins Allergy Mild Rash Verified 08/12/17 11:51 Medical - H&P: Exam - Constitutional Vitals: Temp Pulse Resp BP Pulse Ox 99.3 F H 118 H 21 156/82 95 08/12/17 11:51 08/12/17 15:21 08/12/17 15:21 08/12/17 15:01 08/12/17 15:21 Exam: GENERAL: The patient is a well-developed, well-nourished in mild resp distress , Is alert and oriented x3. VITAL SIGNS: Reviewed and as noted elsewhere. HEENT: Head is normocephalic and atraumatic. Extraocular muscles are intact. Pupils are equal, round, and reactive to light. Nares appeared normal. Mouth appears any without lesions. Mucous membranes are dry, she has poor dentition. NECK: Normal to inspection, Supple, No lymphadenopathy or thyromegaly. LUNGS: Air entry equal on both sides, batsheva significantly dimished breath sounds, prolonged exp phase, batsheva wheeze, HEART: tachycardic rate and rhythm normal, S1 and S2 heard, no Gallop, S3 or Rub Noted, No Gross murmur heard. ABDOMEN: Soft, nontender, and nondistended. Positive bowel sounds. No hepatosplenomegaly was noted. EXTREMITIES: No cyanosis, clubbing, rash, lesions or edema. NEUROLOGIC: Cranial nerves II through XII are grossly intact. Motor and Sensory System Grossly Intact PSYCHIATRIC: Normal affect, Normal Mood. Appropriate Behavior. SKIN: No ulceration or wounds noted, No jaundice, No rash noted. Medical - H&P: Reslt - Labs CBC & Chem 7: 08/12/17 12:09 08/12/17 12:09 Labs: Short CBC 08/12/17 Range/Units 12:09 WBC 13.2 H (4.5-11.0) K/mcL Hgb 11.1 L (12.0-15.0) g/dL Hct 34.2 L (36.0-48.0) % Plt Count 505 H (140-440) K/mcL BMP 08/12/17 12:09 Sodium 139 Potassium 3.7 Chloride 95 L Carbon Dioxide 34 H BUN 8 Creatinine 0.7 Glucose 295 H Calcium 8.7 Liver Function 08/12/17 Range/Units 12:09 Total Bilirubin 0.3 (0.0-1.0) mg/dL AST 11 (0-37) U/l ALT 14 (0-40) U/l Alkaline Phosphatase 146 H (39-117) U/L Albumin 3.6 (3.2-5.2) gm/dL Medical - H&P: A/P - Narrative A/P Narrative: A/P Acute hypoxic, Hypercapenic Resp failure: Due to copd, supplemental oxygn, BIPAP for now, intubate if worsens, trend ABG, ADmit to PCU status COPD exacerbation: No pna on x ray, start on doxycycline, IV steroids and duonebs, continue monteleucast DM: lantus and ssi for now, hold metformin and oral antiglycemic agents. HTN: Resume home bp meds, bp is stable, Chr pain: On chr muscle relaxants and pain meds, will start at 1 hydrocodone qidprn for now, titrate as needed. continue gabapentin, carisopridol. Chr leucocytosis: Stable, wbc improved compared to previous labs. She will need further investigation for same to r/o myleoproliferative disorder, Path smear done last admit. she may benefit from a BCR or a Jak2 mutation analsysis. Will see if we can refer to oncology at discharge. Given her chr non compliance and fact that she does not even follow up with her PCP this will be difficult to arrange. DVT lovenox sq 40mg Diet carb consistent Full code overall prognosis is poor given advanced copd, non compliance to treatment and smoking.
[2017-08-12] MEDS ORDERED: CARISOPRODOL 350 MG TABLET PO PRN (16:48)
[2017-08-12] MEDS ORDERED: DEXTROSE 31 GM ORAL.SUSP PO PRN (16:48)
[2017-08-12] MEDS ORDERED: NALOXONE HCL 0.4 MG/ML VIAL IV PRN (16:48)
[2017-08-12] MEDS ORDERED: DEXTROSE 50% 50 ML VIAL IV PRN (16:48)
[2017-08-12] MEDS ORDERED: ONDANSETRON 4 MG/2 ML VIAL IV PRN (16:48)
[2017-08-12] MEDS: INSULIN LISPRO 1 UNIT/0.01 ML UNIT SQ SCH ×2 (17:26→22:42)
[2017-08-12] MEDS: methylPREDNISolone SOD SUCC 125 MG/2 ML VIAL IV SCH ×2 (17:30→22:43)
[2017-08-12] MEDS: ENOXAPARIN 40 MG/0.4 ML SYRINGE SQ SCH (17:31)
[2017-08-12] MEDS: POTASSIUM CHLORIDE 20 MEQ TABLET PO SCH (17:32)
[2017-08-12] MEDS: HYDROcodone/APAP 10/325MG TABLET PO PRN ×2 (17:42→22:41)
[2017-08-12] MEDS: BUDESONIDE 0.5 MG/2 ML AMPUL.NEB NEB SCH (19:43)
[2017-08-12] MEDS: IPRATROPIUM/ALBUTEROL 3 ML AMPUL.NEB NEB SCH ×2 (19:43→23:15)
[2017-08-12] MEDS: GABAPENTIN 300 MG CAPSULE PO SCH (22:41)
[2017-08-12] MEDS: DOXYCYCLINE HYCLATE 100 MG TABLET.ORL PO SCH (22:41)
[2017-08-12] MEDS: INSULIN GLARGINE, HUMAN 1 UNIT/0.01 ML SQ SCH (22:41)
[2017-08-12] MEDS: MONTELUKAST 10 MG TABLET PO SCH (22:41)
[2017-08-12] MEDS: FAMOTIDINE/PF 20 MG/2 ML VIAL IV SCH (22:41)
[2017-08-12] MEDS: 0.9 % SODIUM CHLORIDE 10 ML SYRINGE IV SCH (22:42)
[2017-08-13] MEDS: IPRATROPIUM/ALBUTEROL 3 ML AMPUL.NEB NEB SCH ×6 (05:05→23:03)
[2017-08-13] MEDS: methylPREDNISolone SOD SUCC 125 MG/2 ML VIAL IV SCH ×3 (05:32→21:50)
[2017-08-13] MEDS: 0.9 % SODIUM CHLORIDE 10 ML SYRINGE IV SCH ×3 (05:32→21:49)
[2017-08-13] MEDS: BUDESONIDE 0.5 MG/2 ML AMPUL.NEB NEB SCH ×2 (07:22→19:29)
[2017-08-13] MEDS ORDERED: LEVOTHYROXINE 100 MCG TABLET PO SCH (07:30)
[2017-08-13] MEDS: amLODIPine 5 MG TABLET PO SCH (08:59)
[2017-08-13] MEDS: INSULIN LISPRO 1 UNIT/0.01 ML UNIT SQ SCH ×4 (08:59→20:22)
[2017-08-13] MEDS: DOXYCYCLINE HYCLATE 100 MG TABLET.ORL PO SCH ×2 (08:59→20:22)
[2017-08-13] MEDS: GABAPENTIN 300 MG CAPSULE PO SCH ×2 (08:59→20:22)
[2017-08-13] MEDS: POTASSIUM CHLORIDE 20 MEQ TABLET PO SCH ×2 (08:59→18:28)
[2017-08-13] MEDS: FAMOTIDINE/PF 20 MG/2 ML VIAL IV SCH ×2 (08:59→20:23)
[2017-08-13] MEDS: LISINOPRIL 10 MG TABLET PO SCH (08:59)
[2017-08-13] MEDS: ENOXAPARIN 40 MG/0.4 ML SYRINGE SQ SCH (09:00)
[2017-08-13] MEDS: INSULIN GLARGINE, HUMAN 1 UNIT/0.01 ML SQ SCH ×2 (09:00→20:21)
[2017-08-13] MEDS: PARoxetine 20 MG TABLET PO SCH (09:00)
[2017-08-13] MEDS: HYDROcodone/APAP 10/325MG TABLET PO PRN (09:23)
[2017-08-13] MEDS ORDERED: ALBUTEROL SULFATE 2.5 MG/3 ML NEBULIZER NEB PRN (10:31)
--- NOTE | 2017-08-13 13:19 | Internal Med Progress Note ---
Medical - PN: Subj Patient information: Note initiated : 08/13/17 at 1:13 pm Service Date, if different from initiated Date: [] Patient: Zakia Gibson a 62 y/o F admitted on 08/12/17 for Shortness of Breath/COPD Exacerbation. Chief Complaint: [] Interval history: Ms. Gibson is a 62 year old Female with h/o copd on oxygen at home, still a smoker, htn, dm, chr pain, chr non compliance with treatments, presents to the ER with shortness of breath going on for the last few days, as per [facility] she notes she has been short of breath since last discharge which was on 07/28/17, she has had 4 visits to the Er, and 2 back to back visits today, yesterday . She notes she is short of breath, with chest tightness,no chest pain, has dry cough, increased fatigue and decreased effort tolerance. She was here yesterday and was started on steroids, she notes she is taking those, she has ran out of all medications except duonebs, she notes she has been using it all night, without much help. She denies any sick contacts, The patient has not followed up with her PCP since her last discharge, and despite multiple episodes of counselling, still smokes. Her sister who is the power of contracts attorney was also at bed side today The patient wishes to be full code, I explained her and her sister her overall poor prognosis given her severe uncontrolled COPD, they verbalized understanding. In the Er she was tachycardic and tachypenic, Her ABG showed ph 7.39/71/60, on oxygen. The patient has poor air entry, chr leucocytosis and neg Chest x ray. She had a low grade temp. The patient is Blood gas shows much worse Co2 than her previous Co2 values, and given her increased work of breating, will admit her to the hospitak, to pcu status for further management. aug 13 Patient seen examined, this am, doing better, still has shortness of breath, but better than yesterday,Her abg shows some what more worsening co2 retention this AM, but she refused bipap yesterday. She received one 10mg hydrocodone and soma, and was knocked out at night, which may be responsible for worsening co2 status. She notes she takes muscle relaxants as well as hydrocodone 20mg,I think this is a a very high dose for her and as she was clearly knocked out with a lower dose, plan to cut bck dose of hydrocodone to 5-325 now, and d/c soma. Patient will continue to be monitored for the day. She has also refused fingerstick glucose monitoring, educated the need for same Pertinent ROS: Denies headache, dizziness Denies chest pain, palpitations Denies cough or improving shortness of breath Denies abdominal pain, nausea or vomiting. - Constitutional Vitals: Vital Signs Temp Pulse Resp BP Pulse Ox 97.9 F 91 H 16 118/74 93 08/13/17 12:00 08/13/17 07:23 08/13/17 12:00 08/13/17 12:00 08/13/17 12:00 Period Temp Pulse Resp BP Sys/Gutierrez Pulse Ox Last 24 Hr 97.9 F-98.7 F 87-123 8-32 118-186/58-150 68-100 Intake and Output 08/12/17 08/13/17 08/13/17 21:59 05:59 13:59 Intake Total 300 / 300 360 / 360 Balance 300 / 300 360 / 360 Weight 120 lb Intake & Output: Intake & Output 08/12/17 08/13/17 08/13/17 21:59 05:59 13:59 Intake Total 300 / 300 360 / 360 Balance 300 / 300 360 / 360 Weight 120 lb Intake: Oral 300 / 300 360 / 360 Other: Meal Breakfast Percent of Meal Consumed 100% # Bowel Movements 1 # of times incontinent of 1 1 Bowels Exam: Constitutional; Afebrile, cooperative, alert, not in distress. Eyes- No icterus, , No periorbital swelling Ears- Ext ear normal, hearing normal to conversation. Neck- Midline trachea, supple Respiratory system: Air Entry equal on both sides, batsheva diminished air entry, batsheva exp wheezing present but improved since yesterday. CVS- tachycardic Rate regular rhythm, S1,S2 heard, no gallop, no rub. Abdomen- Soft nontender abdomen, no organomegaly, no tenderness, no guarding or rigidity, CIVIL CAD TECH- AOOx3, moving all extremities, no gross focal deficit noted. Medical - PN: Obj Da - Labs CBC & Chem 7: 08/12/17 12:09 08/12/17 12:09 Labs: Abnormal Lab Results 08/12/17 08/12/17 12:09 12:09 WBC 13.2 H RBC 3.62 L Hgb 11.1 L Hct 34.2 L Plt Count 505 H MPV 7.1 L Gran % 86.1 H Lymph % (Auto) 8.3 L Gran # 11.3 H Lymph # (Auto) 1.1 L Chloride 95 L Carbon Dioxide 34 H Glucose 295 H Alkaline Phosphatase 146 H Meds: Medications Hydrocodone Bitart/Acetaminophen ([place] 5/325mg) 1 tab PO Q6HP PRN PRN Reason: Pain Albuterol Sulfate (Ventolin) 2.5 mg NEB Q2HP PRN PRN Reason: Shortness Of Breath Albuterol/Ipratropium (Duoneb) 3 ml NEB Q4HRT [facility] Last Admin: 08/13/17 12:02 Dose: Not Given Amlodipine Besylate (Norvasc) 5 mg PO DAILY [facility] Last Admin: 08/13/17 08:59 Dose: 5 mg Budesonide (Pulmicort) 0.5 mg NEB Q12 [facility] Last Admin: 08/13/17 07:22 Dose: 0.5 mg Dextrose (Dextrose 50%) 0 ml IV UD PRN PRN Reason: Hypoglycemia Diagnostic Test (Pha) (Accu-Chek) 1 each FS ACHS [facility] Last Admin: 08/13/17 12:34 Dose: 1 each Doxycycline Hyclate (Doxycycline Hyclate) 100 mg PO BID [facility] Stop: 08/19/17 17:59 Last Admin: 08/13/17 08:59 Dose: 100 mg Enoxaparin Sodium (Lovenox) 40 mg SQ DAILY [facility] Last Admin: 08/13/17 09:00 Dose: 40 mg Famotidine (Pepcid) 20 mg IV Q12 [facility] Last Admin: 08/13/17 08:59 Dose: 20 mg Gabapentin (Neurontin) 300 mg PO BID [facility] Last Admin: 08/13/17 08:59 Dose: 300 mg Glucose (Insta-Glucose) 15 gm PO PRN PRN PRN Reason: Hypoglycemia Insulin Glargine (Lantus) 10 unit SQ BID [facility] Last Admin: 08/13/17 09:00 Dose: 10 unit Insulin Human Lispro (Humalog) 0 unit SQ [facility] PRN Reason: Protocol Last Admin: 08/13/17 12:36 Dose: 8 unit Levothyroxine Sodium (Synthroid) 112 mcg PO QAMAC [facility] Last Admin: 08/13/17 07:59 Dose: 112 mcg Lisinopril (Zestril) 10 mg PO DAILY [facility] Last Admin: 08/13/17 08:59 Dose: 10 mg Methylprednisolone Sodium Succinate (Solu-Medrol) 62.5 mg IV Q8 [facility] Last Admin: 08/13/17 05:32 Dose: 62.5 mg Montelukast Sodium (Singular) 10 mg PO HS [facility] Last Admin: 08/12/17 22:41 Dose: 10 mg Naloxone HCl (Narcan) 0.1 mg IV Q2MIN PRN PRN Reason: Opiate Reversal Ondansetron HCl (Zofran) 4 mg IV Q4-6HP PRN PRN Reason: Nausea And Vomiting Paroxetine HCl (Paxil) 20 mg PO DAILY [facility] Last Admin: 08/13/17 09:00 Dose: 20 mg Potassium Chloride (Kdur) 20 meq PO BIDCC [facility] Last Admin: 08/13/17 08:59 Dose: 20 meq Sodium Chloride (Saline Flush) 10 ml IV Q8 [facility] Last Admin: 08/13/17 05:32 Dose: 10 ml Medical - PN: A/P - Time Spent With Patient Total time spent is greater than 50% in coordination of care (as documented) at patient's floor/unit and/or counseling patient: - Narrative A/P Narrative: A/P Acute hypoxic, Hypercapnic Resp failure: Due to copd, supplemental oxygn, declined bipap, ABG shows ph 7.63/76/ this AM, but clinically she is much better. COPD exacerbation: No pna on x ray, start on doxycycline, IV steroids and duonebs, continue monteleucast, clinically improving. DM: lantus and ssi for now, hold metformin and oral antiglycemic agents. HTN: On lisinopril BP stable Chr pain: On chr muscle relaxants and pain meds. Given that she was drowsy even with one dose of hydrocodone, and Soma, will d/c soma and cut dose of hydrocodone from 10-325 to 5 325 and see how she does, continue gabapentin. Chr leucocytosis: Stable, wbc improved compared to previous labs. She will need further investigation for same to r/o myeloproliferative disorder, Path smear done last admit. she may benefit from a BCR or a Jak2 mutation analsysis. Will see if we can refer to oncology at discharge. Given her chr non compliance and fact that she does not even follow up with her PCP this will be difficult to arrange. DVT lovenox sq 40mg Diet carb consistent Full code overall prognosis is poor given advanced copd, non compliance to treatment and smoking. Medical - PN: Qual - Stroke Symptom Onset Unknown: No - VTE Deep Vein Thrombosis/Pulmonary Embolism Present on Admission: No
[2017-08-13] MEDS: HYDROcodone/APAP 5/325MG TABLET PO PRN (20:08)
[2017-08-13] MEDS: MONTELUKAST 10 MG TABLET PO SCH (20:22)
[2017-08-14] MEDS: IPRATROPIUM/ALBUTEROL 3 ML AMPUL.NEB NEB SCH ×6 (02:49→22:38)
[2017-08-14] MEDS: 0.9 % SODIUM CHLORIDE 10 ML SYRINGE IV SCH ×3 (05:53→22:08)
[2017-08-14] MEDS: methylPREDNISolone SOD SUCC 125 MG/2 ML VIAL IV SCH ×3 (05:53→22:06)
[2017-08-14] MEDS ORDERED: LEVOTHYROXINE SODIUM 112 MCG TABLET PO SCH (07:30)
[2017-08-14] MEDS: BUDESONIDE 0.5 MG/2 ML AMPUL.NEB NEB SCH ×2 (07:33→19:08)
[2017-08-14] MEDS: POTASSIUM CHLORIDE 20 MEQ TABLET PO SCH (08:24)
[2017-08-14 09:00] LABS: Basophils # (Auto) 0.1 K/mcL (0.0-0.3); Basophils % (Auto) 0.3 % (0.0-2.0); Eosinophils # (Auto) 0 K/mcL (0.0-0.7); Eosinophils % (Auto) 0.2 % (0.0-7.0); Granulocytes % (Auto) 89.7 % (38.0-78.0); Lymphocytes # (Auto) 1.4 K/mcL (1.5-4.8); Lymphocytes % (Auto) 6.6 % (15.5-49.0); Mean Cell Volume 95.2 fL (80.0-100.0); Mean Corpuscular HGB Conc 32.1 g/dL (31.0-36.0); Mean Corpuscular Hemoglobin 30.5 pg (26.0-34.0); Monocytes # (Auto) 0.7 K/mcL (0.1-0.9); Monocytes % (Auto) 3.2 % (1.0-12.0); Platelet Count 528 K/mcL (140-440)
[2017-08-14] MEDS: INSULIN GLARGINE, HUMAN 1 UNIT/0.01 ML SQ SCH (09:08)
[2017-08-14] MEDS: ENOXAPARIN 40 MG/0.4 ML SYRINGE SQ SCH (09:08)
[2017-08-14] MEDS: FAMOTIDINE/PF 20 MG/2 ML VIAL IV SCH ×2 (09:08→20:33)
[2017-08-14] MEDS: PARoxetine 20 MG TABLET PO SCH (09:09)
[2017-08-14] MEDS: LISINOPRIL 10 MG TABLET PO SCH (09:09)
[2017-08-14] MEDS: GABAPENTIN 300 MG CAPSULE PO SCH ×2 (09:09→20:33)
[2017-08-14] MEDS: DOXYCYCLINE HYCLATE 100 MG TABLET.ORL PO SCH ×2 (09:09→20:33)
[2017-08-14] MEDS: amLODIPine 5 MG TABLET PO SCH (09:09)
[2017-08-14] MEDS: INSULIN LISPRO 1 UNIT/0.01 ML UNIT SQ SCH ×4 (09:09→20:34)
[2017-08-14 09:21] LABS: ALT/SGPT 13 U/l (0-40); Albumin 3.5 gm/dL (3.2-5.2); Albumin/Globulin Ratio 1.1 (1.0-2.3); Alkaline Phosphatase 124 U/L (39-117); Bilirubin,Direct < 0.2 mg/dL (0.0-0.3); Blood Urea Nitrogen 28 mg/dl (8-23); Gamma Glutamyl Transpeptidase 162 U/L (5-36); Uric Acid 5.8 mg/dL (2.5-8.0)
[2017-08-14] MEDS: HYDROcodone/APAP 5/325MG TABLET PO PRN ×2 (09:27→16:12)
--- NOTE | 2017-08-14 10:10 | Internal Med Progress Note ---
Medical - PN: Subj Patient information: Note initiated : 08/14/17 at 10:08 am Service Date, if different from initiated Date: [] Patient: Zakia Gibson a 62 y/o F admitted on 08/12/17 for Shortness of Breath/COPD Exacerbation. Chief Complaint: [] Interval history: Ms. Gibson is a 62 year old Female with h/o copd on oxygen at home, still a smoker, htn, dm, chr pain, chr non compliance with treatments, presents to the ER with shortness of breath going on for the last few days, [facility] notes she has been short of breath since last discharge which was on 07/28/17, she has had 4 visits to the Er, and 2 back to back visits today, yesterday . She notes she is short of breath, with chest tightness,no chest pain, has dry cough, increased fatigue and decreased effort tolerance. She was here yesterday and was started on steroids, she notes she is taking those, she has ran out of all medications except duonebs, she notes she has been using it all night, without much help. She denies any sick contacts, The patient has not followed up with her PCP since her last discharge, and despite multiple episodes of counselling, still smokes. Her sister who is the power of mergers and acquisitions attorney was also at bed side today The patient wishes to be full code, I explained her and her sister her overall poor prognosis given her severe uncontrolled COPD, they verbalized understanding. In the Er she was tachycardic and tachypenic, Her ABG showed ph 7.39/71/60, on oxygen. The patient has poor air entry, chr leucocytosis and neg Chest x ray. She had a low grade temp. The patient is Blood gas shows much worse Co2 than her previous Co2 values, and given her increased work of breating, will admit her to the hospitak, to pcu status for further management. aug 13 Patient seen examined, this am, doing better, still has shortness of breath, but better than yesterday,Her abg shows some what more worsening co2 retention this AM, but she refused bipap yesterday. She received one 10mg hydrocodone and soma, and was knocked out at night, which may be responsible for worsening co2 status. She notes she takes muscle relaxants as well as hydrocodone 20mg,I think this is a a very high dose for her and as she was clearly knocked out with a lower dose, plan to cut bck dose of hydrocodone to 5-325 now, and d/c soma. Patient will continue to be monitored for the day. She has also refused fingerstick glucose monitoring, educated the need for same Aug 14 Patient seen examined, no acute overnight issues, breathing better but still rough has shortness of breath, no cough, Glucose level better Pertinent ROS: Denies headache, dizziness Denies chest pain, palpitations Denies cough improving, shortness of breath improved slightly. Denies abdominal pain, nausea or vomiting. - Constitutional Vitals: Vital Signs Temp Pulse Resp BP Pulse Ox 97.6 F 116 H 22 169/87 93 08/14/17 04:00 08/14/17 09:18 08/14/17 09:18 08/14/17 09:00 08/14/17 09:18 Period Temp Pulse Resp BP Sys/Gutierrez Pulse Ox Last 24 Hr 97.6 F-98.5 F 104-118 12-26 118-179/58-105 91-100 Intake and Output 08/13/17 08/14/17 08/14/17 21:59 05:59 13:59 Intake Total 480 / 480 360 / 360 Output Total 650 / 650 425 / 425 500 / 500 Balance -170 / -170 -65 / -65 -500 / -500 Weight 119 lb 3.2 oz Intake & Output: Intake & Output 08/13/17 08/14/17 08/14/17 21:59 05:59 13:59 Intake Total 480 / 480 360 / 360 Output Total 650 / 650 425 / 425 500 / 500 Balance -170 / -170 -65 / -65 -500 / -500 Weight 119 lb 3.2 oz Intake: Oral 480 / 480 360 / 360 Output: Void Amount 650 / 650 425 / 425 500 / 500 Other: Meal Dinner [place] and crackers Percent of Meal Consumed 100% 100% Feeding Ability Independent Independent # Voids 0 Exam: Constitutional; Afebrile, cooperative, alert, not in distress. Eyes- No icterus, , No periorbital swelling Ears- Ext ear normal, hearing normal to conversation. Neck- Midline trachea, supple Respiratory system: Air Entry equal on both sides, batsheva dimiished, batsheva exp wheezing present. CVS- Rate rhythm regular, S1,S2 heard, no gallop, no rub. Abdomen- Soft nontender abdomen, no organomegaly, no tenderness, no guarding or rigidity, RUBBER COMPOUNDER FORMULATOR- AOOx3, moving all extremities, no gross focal deficit noted. Medical - PN: Obj Da - Labs CBC & Chem 7: 08/14/17 08:05 08/14/17 08:05 Labs: Abnormal Lab Results 08/14/17 08/14/17 08/12/17 08:05 08:05 12:09 WBC 21.3 H RBC 3.60 L Hgb 11.0 L Hct 34.2 L Plt Count 528 H MPV Gran % 89.7 H Lymph % (Auto) 6.6 L Gran # 19.1 H Lymph # (Auto) 1.4 L Potassium 5.3 H Chloride 95 L Carbon Dioxide 34 H 34 H BUN 28 H Glucose 153 H 295 H GGT 162 H Alkaline Phosphatase 124 H 146 H Lactate Dehydrogenase 252 H 08/12/17 12:09 WBC 13.2 H RBC 3.62 L Hgb 11.1 L Hct 34.2 L Plt Count 505 H MPV 7.1 L Gran % 86.1 H Lymph % (Auto) 8.3 L Gran # 11.3 H Lymph # (Auto) 1.1 L Potassium Chloride Carbon Dioxide BUN Glucose GGT Alkaline Phosphatase Lactate Dehydrogenase Meds: Medications Hydrocodone Bitart/Acetaminophen ([place] 5/325mg) 1 tab PO Q6HP PRN PRN Reason: Pain Last Admin: 08/14/17 09:27 Dose: 1 tab Albuterol Sulfate (Ventolin) 2.5 mg NEB Q2HP PRN PRN Reason: Shortness Of Breath Albuterol/Ipratropium (Duoneb) 3 ml NEB Q4HRT [facility] Last Admin: 08/14/17 07:33 Dose: 3 ml Amlodipine Besylate (Norvasc) 5 mg PO DAILY [facility] Last Admin: 08/14/17 09:09 Dose: 5 mg Budesonide (Pulmicort) 0.5 mg NEB Q12 [facility] Last Admin: 08/14/17 07:33 Dose: 0.5 mg Dextrose (Dextrose 50%) 0 ml IV UD PRN PRN Reason: Hypoglycemia Diagnostic Test (Pha) (Accu-Chek) 1 each FS ACHS [facility] Last Admin: 08/14/17 08:42 Dose: 1 each Doxycycline Hyclate (Doxycycline Hyclate) 100 mg PO BID [facility] Stop: 08/19/17 17:59 Last Admin: 08/14/17 09:09 Dose: 100 mg Enoxaparin Sodium (Lovenox) 40 mg SQ DAILY [facility] Last Admin: 08/14/17 09:08 Dose: 40 mg Famotidine (Pepcid) 20 mg IV Q12 [facility] Last Admin: 08/14/17 09:08 Dose: 20 mg Gabapentin (Neurontin) 300 mg PO BID [facility] Last Admin: 08/14/17 09:09 Dose: 300 mg Glucose (Insta-Glucose) 15 gm PO PRN PRN PRN Reason: Hypoglycemia Insulin Glargine (Lantus) 10 unit SQ BID [facility] Last Admin: 08/14/17 09:08 Dose: 10 unit Insulin Human Lispro (Humalog) 0 unit SQ ACHS [facility] PRN Reason: Protocol Last Admin: 08/14/17 09:09 Dose: 1 unit Levothyroxine Sodium (Synthroid) 112 mcg PO QAMAC [facility] Last Admin: 08/14/17 08:24 Dose: 112 mcg Lisinopril (Zestril) 10 mg PO DAILY [facility] Last Admin: 08/14/17 09:09 Dose: 10 mg Methylprednisolone Sodium Succinate (Solu-Medrol) 62.5 mg IV Q8 [facility] Last Admin: 08/14/17 05:53 Dose: 62.5 mg Montelukast Sodium (Singular) 10 mg PO HS [facility] Last Admin: 08/13/17 20:22 Dose: 10 mg Naloxone HCl (Narcan) 0.1 mg IV Q2MIN PRN PRN Reason: Opiate Reversal Ondansetron HCl (Zofran) 4 mg IV Q4-6HP PRN PRN Reason: Nausea And Vomiting Paroxetine HCl (Paxil) 20 mg PO DAILY [facility] Last Admin: 08/14/17 09:09 Dose: 20 mg Potassium Chloride (Kdur) 20 meq PO BIDCC [facility] Last Admin: 08/14/17 08:24 Dose: 20 meq Sodium Chloride (Saline Flush) 10 ml IV Q8 [facility] Last Admin: 08/14/17 05:53 Dose: 10 ml Medical - PN: A/P - Time Spent With Patient Total time spent is greater than 50% in coordination of care (as documented) at patient's floor/unit and/or counseling patient: - Narrative A/P Narrative: A/P Acute hypoxic, Hypercapnic Resp failure: Due to copd, supplemental oxygn, declined bipap, ABG this AM reviewed, clinically improving. COPD exacerbation: No pna on x ray, start on doxycycline, IV steroids and duonebs, continue montelukast, clinically improving. Hyperkalemia: K is 5.3, d/c Kcl replacement for now, monitor DM: lantus and ssi for now, hold metformin and oral antiglycemic agents. HTN: On lisinopril BP stable Chr pain: On chr muscle relaxants and pain meds. Given that she was drowsy even with one dose of hydrocodone, and Soma, will d/c soma and cut dose of hydrocodone from 10-325 to 5 325, pt has not had any major complaints today, continue gabapentin. Chr leucocytosis: Stable, wbc elevated today, perhaps secondary to steroids, monitor. DVT lovenox sq 40mg Diet carb consistent Full code overall prognosis is poor given advanced copd, non compliance to treatment and smoking. Medical - PN: Qual - Stroke Symptom Onset Unknown: No - VTE Deep Vein Thrombosis/Pulmonary Embolism Present on Admission: No
[2017-08-14] MEDS ORDERED: BENZOCAINE/MENTHOL 1 LOZENGE PO PRN ×2 (13:19→16:55)
[2017-08-14] MEDS: ALBUTEROL SULFATE 1 PUFF INHALER INH PRN ×4 (16:30→22:35)
[2017-08-14] MEDS: NICOTINE 21 MG PATCH TOPICAL SCH (16:42)
[2017-08-14] MEDS ORDERED: ALBUTEROL SULFATE 2.5 MG/3 ML NEBULIZER NEB PRN (16:55)
[2017-08-14] MEDS ORDERED: DEXTROSE 31 GM ORAL.SUSP PO PRN (16:55)
[2017-08-14] MEDS ORDERED: NALOXONE HCL 0.4 MG/ML VIAL IV PRN (16:55)
[2017-08-14] MEDS ORDERED: ONDANSETRON 4 MG/2 ML VIAL IV PRN (16:55)
[2017-08-14] MEDS: MONTELUKAST 10 MG TABLET PO SCH (20:33)
[2017-08-14] MEDS ORDERED: INSULIN GLARGINE, HUMAN 1 UNIT/0.01 ML SQ SCH (21:00)
[2017-08-15] MEDS: IPRATROPIUM/ALBUTEROL 3 ML AMPUL.NEB NEB SCH ×6 (02:55→22:30)
[2017-08-15 05:54] LABS: Basophils # (Auto) 0 K/mcL (0.0-0.3); Basophils % (Auto) 0 % (0.0-2.0); Eosinophils # (Auto) 0.1 K/mcL (0.0-0.7); Eosinophils % (Auto) 0.4 % (0.0-7.0); Granulocytes % (Auto) 94.8 % (38.0-78.0); Lymphocytes # (Auto) 0.5 K/mcL (1.5-4.8); Lymphocytes % (Auto) 3.4 % (15.5-49.0); Mean Cell Volume 95.2 fL (80.0-100.0); Mean Corpuscular HGB Conc 31.9 g/dL (31.0-36.0); Mean Corpuscular Hemoglobin 30.4 pg (26.0-34.0); Monocytes # (Auto) 0.2 K/mcL (0.1-0.9); Monocytes % (Auto) 1.4 % (1.0-12.0); Platelet Count 508 K/mcL (140-440); RBC 3.23 M/mcL (4.00-5.20); Red Cell Distribution Width 13.5 % (11.5-14.5)
[2017-08-15] MEDS: 0.9 % SODIUM CHLORIDE 10 ML SYRINGE IV SCH ×3 (06:00→22:18)
[2017-08-15 06:25] LABS: ALT/SGPT 11 U/l (0-40); Albumin 3.6 gm/dL (3.2-5.2); Albumin/Globulin Ratio 1.4 (1.0-2.3); Alkaline Phosphatase 108 U/L (39-117); Bilirubin,Direct < 0.2 mg/dL (0.0-0.3); Blood Urea Nitrogen 37 mg/dl (8-23); Gamma Glutamyl Transpeptidase 141 U/L (5-36)
[2017-08-15] MEDS: BUDESONIDE 0.5 MG/2 ML AMPUL.NEB NEB SCH ×3 (06:44→19:05)
[2017-08-15] MEDS: methylPREDNISolone SOD SUCC 125 MG/2 ML VIAL IV SCH (07:59)
[2017-08-15] MEDS: ALBUTEROL SULFATE 1 PUFF INHALER INH PRN ×4 (08:42→17:33)
[2017-08-15] MEDS: INSULIN GLARGINE, HUMAN 1 UNIT/0.01 ML SQ SCH ×2 (10:19→20:38)
[2017-08-15] MEDS: INSULIN LISPRO 1 UNIT/0.01 ML UNIT SQ SCH ×5 (10:20→20:37)
[2017-08-15] MEDS: NICOTINE 21 MG PATCH TOPICAL SCH (10:30)
[2017-08-15] MEDS: ENOXAPARIN 40 MG/0.4 ML SYRINGE SQ SCH (10:31)
[2017-08-15] MEDS: DOXYCYCLINE HYCLATE 100 MG TABLET.ORL PO SCH ×2 (10:38→20:37)
[2017-08-15] MEDS: LEVOTHYROXINE SODIUM 112 MCG TABLET PO SCH (10:38)
[2017-08-15] MEDS: FAMOTIDINE/PF 20 MG/2 ML VIAL IV SCH ×2 (10:38→20:38)
[2017-08-15] MEDS: PARoxetine 20 MG TABLET PO SCH (10:38)
[2017-08-15] MEDS: predniSONE 20 MG TABLET PO SCH (10:38)
[2017-08-15] MEDS: amLODIPine 5 MG TABLET PO SCH (10:39)
[2017-08-15] MEDS: GABAPENTIN 300 MG CAPSULE PO SCH ×2 (10:39→20:38)
[2017-08-15] MEDS: LISINOPRIL 10 MG TABLET PO SCH (10:39)
[2017-08-15] MEDS: HYDROcodone/APAP 5/325MG TABLET PO PRN ×2 (10:39→17:32)
--- NOTE | 2017-08-15 12:33 | Internal Med Progress Note ---
Medical - PN: Subj Patient information: Note initiated : 08/15/17 at 12:22 pm Service Date, if different from initiated Date: [] Patient: Zakia Gibson a 62 y/o F admitted on 08/12/17 for Shortness of Breath/COPD Exacerbation. Chief Complaint: [] Interval history: Ms. Gibson is a 62 year old Female with h/o copd on oxygen at home, still a smoker, htn, dm, chr pain, chr non compliance with treatments, presents to the ER with shortness of breath going on for the last few days, [facility] she notes she has been short of breath since last discharge which was on 07/28/17, she has had 4 visits to the Er, and 2 back to back visits today, yesterday . She notes she is short of breath, with chest tightness,no chest pain, has dry cough, increased fatigue and decreased effort tolerance. She was here yesterday and was started on steroids, she notes she is taking those, she has ran out of all medications except duonebs, she notes she has been using it all night, without much help. She denies any sick contacts, The patient has not followed up with her PCP since her last discharge, and despite multiple episodes of counselling, still smokes. Her sister who is the power of labor economics professor was also at bed side today The patient wishes to be full code, I explained her and her sister her overall poor prognosis given her severe uncontrolled COPD, they verbalized understanding. In the Er she was tachycardic and tachypenic, Her ABG showed ph 7.39/71/60, on oxygen. The patient has poor air entry, chr leucocytosis and neg Chest x ray. She had a low grade temp. The patient is Blood gas shows much worse Co2 than her previous Co2 values, and given her increased work of breating, will admit her to the hospitak, to pcu status for further management. aug 13 Patient seen examined, this am, doing better, still has shortness of breath, but better than yesterday,Her abg shows some what more worsening co2 retention this AM, but she refused bipap yesterday. She received one 10mg hydrocodone and soma, and was knocked out at night, which may be responsible for worsening co2 status. She notes she takes muscle relaxants as well as hydrocodone 20mg,I think this is a a very high dose for her and as she was clearly knocked out with a lower dose, plan to cut bck dose of hydrocodone to 5-325 now, and d/c soma. Patient will continue to be monitored for the day. She has also refused fingerstick glucose monitoring, educated the need for same Aug 14 Patient seen examined, no acute overnight issues, breathing better but still rough has shortness of breath, no cough, Glucose level better Aug 15 patient seen examined, no acute overnight issues, pt still has sob, but improving, remains tachcyaredic tsh is neg, will get echo to evaluate cardiac function, and pulmonary HTN tachycardia could likely be secondary to use of b2 agonist for [place], pt is requesting inhlaer q2hrs on po steroids now. labs stable. Pertinent ROS: Denies headache, dizziness Denies chest pain, palpitations stable cough and shortness of breath Denies abdominal pain, nausea or vomiting. - Constitutional Vitals: Vital Signs Temp Pulse Resp BP Pulse Ox 98.4 F 108 H 22 197/94 93 08/15/17 08:36 08/15/17 03:08 08/15/17 08:36 08/15/17 08:36 08/15/17 08:36 Period Temp Pulse Resp BP Sys/Gutierrez Pulse Ox Last 24 Hr 97.6 F-98.7 F 108-128 15-30 156-197/75-94 93-100 Intake and Output 08/14/17 08/15/17 08/15/17 21:59 05:59 13:59 Intake Total 480 / 480 360 / 360 Output Total 1051 / 1051 600 / 600 Balance 480 / 480 -691 / -691 -600 / -600 Weight 123 lb 1.6 oz Intake & Output: Intake & Output 08/14/17 08/15/17 08/15/17 21:59 05:59 13:59 Intake Total 480 / 480 360 / 360 Output Total 1051 / 1051 600 / 600 Balance 480 / 480 -691 / -691 -600 / -600 Weight 123 lb 1.6 oz Intake: Oral 480 / 480 360 / 360 Output: Void Amount 1050 / 1050 600 / 600 # of times incontinent of urine Other: Meal Dinner Percent of Meal Consumed 100% Feeding Ability Assist with Tray Set Up # Bowel Movements 0 Exam: Constitutional; Afebrile, cooperative, alert, not in distress. Eyes- No icterus, , No periorbital swelling Ears- Ext ear normal, hearing normal to conversation. Neck- Midline trachea, supple Respiratory system: Air Entry equal on both sides, decreased air entry, but wheezing better today than yesterday CVS-tachycardic Rate rhythm regular, S1,S2 heard, no gallop, no rub. Abdomen- Soft nontender abdomen, no organomegaly, no tenderness, no guarding or rigidity, CUSTOMER ENGAGEMENT REPRESENTATIVE- AOOx3, moving all extremities, no gross focal deficit noted. Medical - PN: Obj Da - Labs CBC & Chem 7: 08/15/17 03:55 08/15/17 03:55 Labs: Abnormal Lab Results 08/15/17 08/15/17 08/14/17 03:55 03:55 08:05 WBC 14.5 H RBC 3.23 L Hgb 9.8 L Hct 30.8 L Plt Count 508 H MPV 7.2 L Gran % 94.8 H Lymph % (Auto) 3.4 L Gran # 13.8 H Lymph # (Auto) 0.5 L Potassium 5.3 H Chloride Carbon Dioxide 32 H 34 H BUN 37 H 28 H Glucose 321 H 153 H GGT 141 H 162 H Alkaline Phosphatase 124 H Lactate Dehydrogenase 252 H 08/14/17 08/12/17 08/12/17 08:05 12:09 12:09 WBC 21.3 H 13.2 H RBC 3.60 L 3.62 L Hgb 11.0 L 11.1 L Hct 34.2 L 34.2 L Plt Count 528 H 505 H MPV 7.1 L Gran % 89.7 H 86.1 H Lymph % (Auto) 6.6 L 8.3 L Gran # 19.1 H 11.3 H Lymph # (Auto) 1.4 L 1.1 L Potassium Chloride 95 L Carbon Dioxide 34 H BUN Glucose 295 H GGT Alkaline Phosphatase 146 H Lactate Dehydrogenase Meds: Medications Hydrocodone Bitart/Acetaminophen ([place] 5/325mg) 1 tab PO Q6HP PRN PRN Reason: Pain Last Admin: 08/15/17 10:39 Dose: 1 tab Albuterol Sulfate (Ventolin) 2 puff INH Q2HP PRN PRN Reason: Shortness Of Breath Last Admin: 08/15/17 08:42 Dose: 2 puff Albuterol/Ipratropium (Duoneb) 3 ml NEB Q4HRT [facility] Last Admin: 08/15/17 06:44 Dose: 3 ml Amlodipine Besylate (Norvasc) 5 mg PO DAILY [facility] Last Admin: 08/15/17 10:39 Dose: 5 mg Budesonide (Pulmicort) 0.5 mg NEB Q12 [facility] Last Admin: 08/15/17 11:58 Dose: Not Given Dextrose (Dextrose 50%) 0 ml IV UD PRN PRN Reason: Hypoglycemia Diagnostic Test (Pha) (Accu-Chek) 1 each FS ACHS [facility] Last Admin: 08/15/17 12:15 Dose: 1 each Doxycycline Hyclate (Doxycycline Hyclate) 100 mg PO BID [facility] Stop: 08/19/17 17:59 Last Admin: 08/15/17 10:38 Dose: 100 mg Enoxaparin Sodium (Lovenox) 40 mg SQ DAILY [facility] Last Admin: 08/15/17 10:31 Dose: 40 mg Famotidine (Pepcid) 20 mg IV Q12 [facility] Last Admin: 08/15/17 10:38 Dose: 20 mg Gabapentin (Neurontin) 300 mg PO BID [facility] Last Admin: 08/15/17 10:39 Dose: 300 mg Glucose (Insta-Glucose) 15 gm PO PRN PRN PRN Reason: Hypoglycemia Guaifenesin (Robitussin) 200 mg PO TID [facility] Last Admin: 08/15/17 10:30 Dose: 200 mg Insulin Glargine (Lantus) 15 unit SQ BID [facility] Last Admin: 08/15/17 10:19 Dose: 15 unit Insulin Human Lispro (Humalog) 0 unit SQ [facility] PRN Reason: Protocol Last Admin: 08/15/17 12:16 Dose: 12 unit Levothyroxine Sodium (Synthroid) 112 mcg PO QAMAC [facility] Last Admin: 08/15/17 10:38 Dose: 112 mcg Lisinopril (Zestril) 10 mg PO DAILY [facility] Last Admin: 08/15/17 10:39 Dose: 10 mg Montelukast Sodium (Singular) 10 mg PO HS [facility] Last Admin: 08/14/17 20:33 Dose: 10 mg Naloxone HCl (Narcan) 0.1 mg IV Q2MIN PRN PRN Reason: Opiate Reversal Nicotine (Nicoderm) 21 mg TOPICAL DAILY@1000 [facility] Last Admin: 08/15/17 10:30 Dose: 21 mg Ondansetron HCl (Zofran) 4 mg IV Q4-6HP PRN PRN Reason: Nausea And Vomiting Paroxetine HCl (Paxil) 20 mg PO DAILY [facility] Last Admin: 08/15/17 10:38 Dose: 20 mg Prednisone (Prednisone) 40 mg PO QAMCC [facility] Last Admin: 08/15/17 10:38 Dose: 40 mg Sodium Chloride (Saline Flush) 10 ml IV Q8 [facility] Last Admin: 08/15/17 12:15 Dose: 10 ml Throat Lozenges (Cepacol) 1 lozenge PO PRN PRN PRN Reason: Sore Throat Medical - PN: A/P - Time Spent With Patient Total time spent is greater than 50% in coordination of care (as documented) at patient's floor/unit and/or counseling patient: - Narrative A/P Narrative: A/P Acute on chronic hypoxic, Hypercapnic Resp failure: Due to copd, supplemental oxygen now, pt is still on oxygen 2-3 L which is her baseline. COPD exacerbation: No pna on x ray, on doxycycline, duonebs, and steroids, now on po steroids monitor Hyperkalemia: resolved, monitor. DM: lantus and ssi for now, glucose level high, likely due to increased diet, increase dose of lantus to 15units bid, and add med scale SSI HTN: On lisinopril BP stable Chr pain: On chr muscle relaxants and pain meds. Given that she was drowsy even with one dose of hydrocodone, and Soma, will d/c soma and cut dose of hydrocodone from 10-325 to 5 325, pt has not had any major complaints today, continue gabapentin. Chr leucocytosis: Stable, Tachycardia: due to duonebs, copd exacerbation, check echo for eval of pulm HTN. DVT lovenox sq 40mg Diet carb consistent Full code overall prognosis is poor given advanced copd, non compliance to treatment and smoking. Medical - PN: Qual - Stroke Symptom Onset Unknown: No - VTE Deep Vein Thrombosis/Pulmonary Embolism Present on Admission: No
[2017-08-15] MEDS: MONTELUKAST 10 MG TABLET PO SCH (20:39)
[2017-08-16] MEDS: cloNIDine HCL 0.1 MG TABLET PO PRN (00:02)
[2017-08-16] MEDS ORDERED: cloNIDine HCL 0.1 MG TABLET ONE (00:11)
[2017-08-16] MEDS: ALBUTEROL SULFATE 1 PUFF INHALER INH PRN (01:33)
[2017-08-16] MEDS: IPRATROPIUM/ALBUTEROL 3 ML AMPUL.NEB NEB SCH ×6 (02:43→23:01)
[2017-08-16] MEDS: HYDROcodone/APAP 5/325MG TABLET PO PRN ×3 (05:18→19:40)
[2017-08-16] MEDS: 0.9 % SODIUM CHLORIDE 10 ML SYRINGE IV SCH ×3 (05:19→20:49)
[2017-08-16 05:57] LABS: Basophils # (Auto) 0 K/mcL (0.0-0.3); Basophils % (Auto) 0 % (0.0-2.0); Eosinophils # (Auto) 0 K/mcL (0.0-0.7); Eosinophils % (Auto) 0 % (0.0-7.0); Granulocytes % (Auto) 86.6 % (38.0-78.0); Lymphocytes # (Auto) 1.8 K/mcL (1.5-4.8); Lymphocytes % (Auto) 8.6 % (15.5-49.0); Mean Cell Volume 95.7 fL (80.0-100.0); Mean Corpuscular HGB Conc 31.9 g/dL (31.0-36.0); Mean Corpuscular Hemoglobin 30.5 pg (26.0-34.0); Monocytes % (Auto) 4.8 % (1.0-12.0); Platelet Count 540 K/mcL (140-440); RBC 3.36 M/mcL (4.00-5.20); Red Cell Distribution Width 13.6 % (11.5-14.5)
[2017-08-16 06:01] LABS: ALT/SGPT 14 U/l (0-40); Albumin 3.7 gm/dL (3.2-5.2); Albumin/Globulin Ratio 1.5 (1.0-2.3); Alkaline Phosphatase 101 U/L (39-117); Bilirubin,Direct < 0.2 mg/dL (0.0-0.3); Blood Urea Nitrogen 33 mg/dl (8-23); Gamma Glutamyl Transpeptidase 136 U/L (5-36); Uric Acid 4.7 mg/dL (2.5-8.0)
[2017-08-16] MEDS: LEVOTHYROXINE SODIUM 112 MCG TABLET PO SCH (07:07)
[2017-08-16] MEDS: BUDESONIDE 0.5 MG/2 ML AMPUL.NEB NEB SCH ×2 (07:42→21:01)
[2017-08-16] MEDS: INSULIN LISPRO 1 UNIT/0.01 ML UNIT SQ SCH ×4 (08:20→20:10)
[2017-08-16] MEDS: predniSONE 20 MG TABLET PO SCH (08:21)
[2017-08-16] MEDS: ENOXAPARIN 40 MG/0.4 ML SYRINGE SQ SCH (08:21)
[2017-08-16] MEDS: amLODIPine 5 MG TABLET PO SCH (08:22)
[2017-08-16] MEDS: LISINOPRIL 10 MG TABLET PO SCH (08:22)
[2017-08-16] MEDS: GABAPENTIN 300 MG CAPSULE PO SCH ×2 (08:22→19:39)
[2017-08-16] MEDS: FAMOTIDINE/PF 20 MG/2 ML VIAL IV SCH ×2 (08:22→19:40)
[2017-08-16] MEDS: PARoxetine 20 MG TABLET PO SCH (08:27)
[2017-08-16] MEDS: INSULIN GLARGINE, HUMAN 1 UNIT/0.01 ML SQ SCH ×2 (09:00→20:10)
[2017-08-16] MEDS: NICOTINE 21 MG PATCH TOPICAL SCH (10:14)
[2017-08-16] MEDS: DOXYCYCLINE HYCLATE 100 MG TABLET.ORL PO SCH ×2 (10:15→19:39)
[2017-08-16] MEDS: LORazepam 0.5 MG TABLET PO PRN ×3 (10:18→19:40)
--- NOTE | 2017-08-16 13:53 | Internal Med Progress Note ---
Medical - PN: Subj Patient information: Note initiated : 08/16/17 at 1:48 pm Service Date, if different from initiated Date: [] Patient: Zakia Gibson a 62 y/o F admitted on 08/12/17 for Shortness of Breath/COPD Exacerbation. Chief Complaint: [] Interval history: Ms. Gibson is a 62 year old Female with h/o copd on oxygen at home, still a smoker, htn, dm, chr pain, chr non compliance with treatments, presents to the ER with shortness of breath going on for the last few days, [facility] she notes she has been short of breath since last discharge which was on 07/28/17, she has had 4 visits to the Er, and 2 back to back visits today, yesterday . She notes she is short of breath, with chest tightness,no chest pain, has dry cough, increased fatigue and decreased effort tolerance. She was here yesterday and was started on steroids, she notes she is taking those, she has ran out of all medications except duonebs, she notes she has been using it all night, without much help. She denies any sick contacts, The patient has not followed up with her PCP since her last discharge, and despite multiple episodes of counselling, still smokes. Her sister who is the power of workers compensation attorney was also at bed side today The patient wishes to be full code, I explained her and her sister her overall poor prognosis given her severe uncontrolled COPD, they verbalized understanding. In the Er she was tachycardic and tachypenic, Her ABG showed ph 7.39/71/60, on oxygen. The patient has poor air entry, chr leucocytosis and neg Chest x ray. She had a low grade temp. The patient is Blood gas shows much worse Co2 than her previous Co2 values, and given her increased work of breating, will admit her to the hospitak, to pcu status for further management. aug 13 Patient seen examined, this am, doing better, still has shortness of breath, but better than yesterday,Her abg shows some what more worsening co2 retention this AM, but she refused bipap yesterday. She received one 10mg hydrocodone and soma, and was knocked out at night, which may be responsible for worsening co2 status. She notes she takes muscle relaxants as well as hydrocodone 20mg,I think this is a a very high dose for her and as she was clearly knocked out with a lower dose, plan to cut bck dose of hydrocodone to 5-325 now, and d/c soma. Patient will continue to be monitored for the day. She has also refused fingerstick glucose monitoring, educated the need for same Aug 14 Patient seen examined, no acute overnight issues, breathing better but still rough has shortness of breath, no cough, Glucose level better Aug 15 patient seen examined, no acute overnight issues, pt still has sob, but improving, remains tachcyaredic tsh is neg, will get echo to evaluate cardiac function, and pulmonary HTN tachycardia could likely be secondary to use of b2 agonist for shorn[place], pt is requesting inhlaer q2hrs on po steroids now. labs stable. 08/16-patient continues to deteriorate with worsening respiratory status.white count at 21,400 up from 13.2. persistent tachycardia in mid 120s.on 2 L oxygen. Very labored and unable to talk in full sentences. patient has advanced COPD carrying a poor prognosis however she appears to have a poor understanding of disease process and wanted information on lung transplant. She still continues to smoke despite multiple ER visits in the last year with COPD exacerbations. - Constitutional Vitals: Vital Signs Temp Pulse Resp BP Pulse Ox 99.0 F H 124 H 30 H 177/84 93 08/16/17 12:32 08/16/17 12:32 08/16/17 13:10 08/16/17 12:32 08/16/17 12:32 Period Temp Pulse Resp BP Sys/Gutierrez Pulse Ox Last 24 Hr 98.0 F-99.0 F 110-132 12-30 146-189/74-143 92-95 Intake and Output 08/15/17 08/16/17 08/16/17 21:59 05:59 13:59 Intake Total 480 / 480 790 / 790 Output Total 952 / 952 Balance 480 / 480 -162 / -162 Weight 124 lb Intake & Output: Intake & Output 08/15/17 08/16/17 08/16/17 21:59 05:59 13:59 Intake Total 480 / 480 790 / 790 Output Total 952 / 952 Balance 480 / 480 -162 / -162 Weight 124 lb Intake: Oral 480 / 480 790 / 790 Output: Void Amount 950 / 950 # of times incontinent of urine 2 / 2 Other: Meal Lunch Percent of Meal Consumed 100% Feeding Ability Assist with Tray Set Up General appearance: severe distress (SOB) Exam: labored breathing Weak fatigued and lethargic Significantly anxious No pallor No lymphedema Tachycardic Medical - PN: Obj Da - Labs CBC & Chem 7: 08/16/17 03:50 08/16/17 03:50 Labs: Abnormal Lab Results 08/16/17 08/16/17 08/15/17 03:50 03:50 03:55 WBC 21.4 H RBC 3.36 L Hgb 10.3 L Hct 32.2 L Plt Count 540 H MPV 7.2 L Gran % 86.6 H Lymph % (Auto) 8.6 L Gran # 18.5 H Lymph # (Auto) [place] # (Auto) 1.0 H Potassium Carbon Dioxide 34 H 32 H BUN 33 H 37 H Glucose 142 H 321 H Phosphorus 2.4 L GGT 136 H 141 H Alkaline Phosphatase Lactate Dehydrogenase 08/15/17 08/14/17 08/14/17 03:55 08:05 08:05 WBC 14.5 H 21.3 H RBC 3.23 L 3.60 L Hgb 9.8 L 11.0 L Hct 30.8 L 34.2 L Plt Count 508 H 528 H MPV 7.2 L Gran % 94.8 H 89.7 H Lymph % (Auto) 3.4 L 6.6 L Gran # 13.8 H 19.1 H Lymph # (Auto) 0.5 L 1.4 L [place] # (Auto) Potassium 5.3 H Carbon Dioxide 34 H BUN 28 H Glucose 153 H Phosphorus GGT 162 H Alkaline Phosphatase 124 H Lactate Dehydrogenase 252 H Meds: Medications Hydrocodone Bitart/Acetaminophen ([place] 5/325mg) 1 tab PO Q6HP PRN PRN Reason: Pain Last Admin: 08/16/17 13:43 Dose: 1 tab Albuterol Sulfate (Ventolin) 2 puff INH Q2HP PRN PRN Reason: Shortness Of Breath Last Admin: 08/16/17 01:33 Dose: 2 puff Albuterol/Ipratropium (Duoneb) 3 ml NEB Q4HRT [facility] Last Admin: 08/16/17 10:16 Dose: 3 ml Amlodipine Besylate (Norvasc) 5 mg PO DAILY [facility] Last Admin: 08/16/17 08:22 Dose: 5 mg Budesonide (Pulmicort) 0.5 mg NEB Q12 [facility] Last Admin: 08/16/17 07:42 Dose: 0.5 mg Clonidine HCl (Catapres) 0.1 mg PO Q4HP PRN PRN Reason: Hypertension Last Admin: 08/16/17 00:02 Dose: 0.1 mg Dextrose (Dextrose 50%) 0 ml IV UD PRN PRN Reason: Hypoglycemia Diagnostic Test (Pha) (Accu-Chek) 1 each FS ACHS [facility] Last Admin: 08/16/17 12:27 Dose: 1 each Doxycycline Hyclate (Doxycycline Hyclate) 100 mg PO BID [facility] Stop: 08/19/17 17:59 Last Admin: 08/16/17 10:15 Dose: 100 mg Enoxaparin Sodium (Lovenox) 40 mg SQ DAILY [facility] Last Admin: 08/16/17 08:21 Dose: 40 mg Famotidine (Pepcid) 20 mg IV Q12 [facility] Last Admin: 08/16/17 08:22 Dose: 20 mg Gabapentin (Neurontin) 300 mg PO BID [facility] Last Admin: 08/16/17 08:22 Dose: 300 mg Glucose (Insta-Glucose) 15 gm PO PRN PRN PRN Reason: Hypoglycemia Guaifenesin (Robitussin) 200 mg PO TID [facility] Last Admin: 08/16/17 08:28 Dose: 200 mg Insulin Glargine (Lantus) 15 unit SQ BID [facility] Last Admin: 08/16/17 09:00 Dose: 15 unit Insulin Human Lispro (Humalog) 0 unit SQ [facility] PRN Reason: Protocol Last Admin: 08/16/17 12:30 Dose: 8 unit Levothyroxine Sodium (Synthroid) 112 mcg PO QAMAC [facility] Last Admin: 08/16/17 07:07 Dose: 112 mcg Lisinopril (Zestril) 10 mg PO DAILY [facility] Last Admin: 08/16/17 08:22 Dose: 10 mg Lorazepam (Ativan) 0.5 mg PO Q4HP PRN PRN Reason: ANXIETY/SEDATION Last Admin: 08/16/17 10:18 Dose: 0.5 mg Montelukast Sodium (Singular) 10 mg PO HS [facility] Last Admin: 08/15/17 20:39 Dose: 10 mg Naloxone HCl (Narcan) 0.1 mg IV Q2MIN PRN PRN Reason: Opiate Reversal Nicotine (Nicoderm) 21 mg TOPICAL DAILY@1000 [facility] Last Admin: 08/16/17 10:14 Dose: 21 mg Ondansetron HCl (Zofran) 4 mg IV Q4-6HP PRN PRN Reason: Nausea And Vomiting Paroxetine HCl (Paxil) 20 mg PO DAILY [facility] Last Admin: 08/16/17 08:27 Dose: 20 mg Prednisone (Prednisone) 40 mg PO [facility] Last Admin: 08/16/17 08:21 Dose: 40 mg Sodium Chloride (Saline Flush) 10 ml IV Q8 [facility] Last Admin: 08/16/17 05:19 Dose: 10 ml Throat Lozenges (Cepacol) 1 lozenge PO PRN PRN PRN Reason: Sore Throat Medical - PN: A/P - Time Spent With Patient Total time spent is greater than 50% in coordination of care (as documented) at patient's floor/unit and/or counseling patient: 25 - 35 minutes - Narrative A/P Narrative: A/P * Acute on chronic hypoxic, Hypercapnic Resp failure: Due to copd exacerbation. continue steroids/bronchodilators/oxygen * COPD exacerbation: negative chest imaging for infiltrates.on doxycycline, duonebs, and oral steroids * worsening leukocytosis at 21.4. question steroid effect * Hyperkalemia: resolved * DM:continue lantus and ssi * HTN: On lisinopril * Chr pain: d/c'd soma and lower dose of hydrocodone to 5 325. Continue gabapentin * Chr leucocytosis:COPD related * Tachycardia: due to duonebs, copd exacerbation, await echo results for eval of pulm HTN. * DVT lovenox sq 40mg * Diet carb consistent * Full code plan * COPD management per protocol * Pre-existing medical condition management as above * overall prognosis is poor given advanced copd, non compliance to treatment and smoking. Medical - PN: Qual - Stroke Symptom Onset Unknown: No - VTE Deep Vein Thrombosis/Pulmonary Embolism Present on Admission: No
[2017-08-16] MEDS: MONTELUKAST 10 MG TABLET PO SCH (19:40)
[2017-08-17] MEDS: IPRATROPIUM/ALBUTEROL 3 ML AMPUL.NEB NEB SCH ×6 (02:48→23:00)
[2017-08-17] MEDS: cloNIDine HCL 0.1 MG TABLET PO PRN (02:48)
[2017-08-17] MEDS ORDERED: MAGNESIUM SULFATE 2 GM/50 ML BAG IV PRN (03:31)
[2017-08-17] MEDS ORDERED: MAGNESIUM SULFATE 2 GM/50 ML BAG IV ONE (04:06)
[2017-08-17 05:41] LABS: Basophils # (Auto) 0 K/mcL (0.0-0.3); Basophils % (Auto) 0.1 % (0.0-2.0); Eosinophils # (Auto) 0 K/mcL (0.0-0.7); Eosinophils % (Auto) 0.1 % (0.0-7.0); Granulocytes % (Auto) 85.5 % (38.0-78.0); Lymphocytes # (Auto) 2.4 K/mcL (1.5-4.8); Lymphocytes % (Auto) 7.8 % (15.5-49.0); Mean Cell Volume 95.4 fL (80.0-100.0); Mean Corpuscular HGB Conc 31.7 g/dL (31.0-36.0); Mean Corpuscular Hemoglobin 30.2 pg (26.0-34.0); Monocytes % (Auto) 6.5 % (1.0-12.0); Platelet Count 645 K/mcL (140-440); RBC 3.69 M/mcL (4.00-5.20); Red Cell Distribution Width 13.8 % (11.5-14.5)
[2017-08-17] MEDS: DEXTROSE 50% 50 ML VIAL IV PRN ×2 (07:00→08:40)
[2017-08-17 07:14] LABS: Mean Cell Volume 95.1 fL (80.0-100.0); Mean Corpuscular HGB Conc 32.2 g/dL (31.0-36.0); Mean Corpuscular Hemoglobin 30.6 pg (26.0-34.0); Platelet Count 607 K/mcL (140-440); RBC 3.66 M/mcL (4.00-5.20); Red Cell Distribution Width 13.7 % (11.5-14.5)
[2017-08-17] MEDS: INSULIN LISPRO 1 UNIT/0.01 ML UNIT SQ SCH ×4 (07:19→20:44)
--- NOTE | 2017-08-17 07:22 | XRay Report ---
CLINICAL INFORMATION: Elevated white blood cell count COMPARISON: 08/12/2017 FINDINGS: Moderate cardiomegaly is unchanged. Mediastinum and pulmonary vessels are normal. Moderate vague infiltrate has developed in the right base. Small right pleural effusion IMPRESSION: Moderate infiltrate developing in the right base and small right pleural effusion. Likely pneumonia Interpreted and Authenticated by: Gerry Danielson 08/17/17
[2017-08-17 07:53] LABS: ALT/SGPT 16 U/l (0-40); Albumin 3.8 gm/dL (3.2-5.2); Albumin/Globulin Ratio 1.4 (1.0-2.3); Alkaline Phosphatase 109 U/L (39-117); Bilirubin,Direct < 0.2 mg/dL (0.0-0.3); Blood Urea Nitrogen 22 mg/dl (8-23); Gamma Glutamyl Transpeptidase 138 U/L (5-36); Uric Acid 4.3 mg/dL (2.5-8.0)
[2017-08-17 08:05] LABS: Eosinophils % (Manual) 1 % (0-7); Lymphocytes % 9 % (15-49); Monocytes % (Manual) 11 % (1-12); Myelocytes % 1 % (0-0); Platelet Estimate INCREASED (NORMAL); RBC Morphology NORMAL (NORMAL); Segmented Neutrophils % 78 % (38-78)
[2017-08-17] MEDS: BUDESONIDE 0.5 MG/2 ML AMPUL.NEB NEB SCH ×2 (08:07→21:00)
--- NOTE | 2017-08-17 08:21 | Internal Med Progress Note ---
Medical - PN: Subj Patient information: Note initiated : 08/17/17 at 8:17 am Service Date, if different from initiated Date: [] Patient: Zakia Gibson a 62 y/o F admitted on 08/12/17 for Shortness of Breath/COPD Exacerbation. Chief Complaint: [] Interval history: Ms. Gibson is a 62 year old Female with h/o copd on oxygen at home, still a smoker, htn, dm, chr pain, chr non compliance with treatments, presents to the ER with shortness of breath going on for the last few days, [facility] notes she has been short of breath since last discharge which was on 07/28/17, she has had 4 visits to the Er, and 2 back to back visits today, yesterday . She notes she is short of breath, with chest tightness,no chest pain, has dry cough, increased fatigue and decreased effort tolerance. She was here yesterday and was started on steroids, she notes she is taking those, she has ran out of all medications except duonebs, she notes she has been using it all night, without much help. She denies any sick contacts, The patient has not followed up with her PCP since her last discharge, and despite multiple episodes of counselling, still smokes. Her sister who is the power of claims attorney was also at bed side today The patient wishes to be full code, I explained her and her sister her overall poor prognosis given her severe uncontrolled COPD, they verbalized understanding. In the Er she was tachycardic and tachypenic, Her ABG showed ph 7.39/71/60, on oxygen. The patient has poor air entry, chr leucocytosis and neg Chest x ray. She had a low grade temp. The patient is Blood gas shows much worse Co2 than her previous Co2 values, and given her increased work of breating, will admit her to the hospitak, to pcu status for further management. aug 13 Patient seen examined, this am, doing better, still has shortness of breath, but better than yesterday,Her abg shows some what more worsening co2 retention this AM, but she refused bipap yesterday. She received one 10mg hydrocodone and soma, and was knocked out at night, which may be responsible for worsening co2 status. She notes she takes muscle relaxants as well as hydrocodone 20mg,I think this is a a very high dose for her and as she was clearly knocked out with a lower dose, plan to cut bck dose of hydrocodone to 5-325 now, and d/c soma. Patient will continue to be monitored for the day. She has also refused fingerstick glucose monitoring, educated the need for same Aug 14 Patient seen examined, no acute overnight issues, breathing better but still rough has shortness of breath, no cough, Glucose level better Aug 15 patient seen examined, no acute overnight issues, pt still has sob, but improving, remains tachcyaredic tsh is neg, will get echo to evaluate cardiac function, and pulmonary HTN tachycardia could likely be secondary to use of b2 agonist for shorntess of [place], pt is requesting inhlaer q2hrs on po steroids now. labs stable. 08/16-patient continues to deteriorate with worsening respiratory status.white count at 21,400 up from 13.2. persistent tachycardia in mid 120s.on 2 L oxygen. Very labored and unable to talk in full sentences. patient has advanced COPD carrying a poor prognosis however she appears to have a poor understanding of disease process and wanted information on lung transplant. She still continues to smoke despite multiple ER visits in the last year with COPD exacerbations. 08/17-patient clinically deteriorating and very lethargic and fatigued. Difficulty arousing. Check ABGs. White count of 30,300. No clear source identified. No overnight fever or low blood pressures and evidence of end organ dysfunction. await pro-calcitonin. patient has carries a very high risk mortality however insists on being full code. persistent tachycardia around 115. Labored breathing. blood cultures negative so far. blood sugar this morning at 25 and subsequently received dextrose. Lantus 15 units at bedtime discontinued. erratic blood sugars swinging up to 400s. - Constitutional Vitals: Vital Signs Temp Pulse Resp BP Pulse Ox 97.9 F 115 H 16 169/75 94 08/17/17 07:30 08/17/17 08:08 08/17/17 08:08 08/17/17 07:30 08/17/17 08:08 Period Temp Pulse Resp BP Sys/Gutierrez Pulse Ox Last 24 Hr 97.9 F-99.0 F 105-138 13-30 158-186/74-84 85-95 Intake and Output 08/16/17 08/17/17 08/17/17 21:59 05:59 13:59 Intake Total 640 / 640 200 / 200 Output Total 251 / 251 560 / 560 Balance 389 / 389 -360 / -360 Weight 122 lb 4.8 oz Intake & Output: Intake & Output 08/16/17 08/17/17 08/17/17 21:59 05:59 13:59 Intake Total 640 / 640 200 / 200 Output Total 251 / 251 560 / 560 Balance 389 / 389 -360 / -360 Weight 122 lb 4.8 oz Intake: Oral 640 / 640 200 / 200 Output: Void Amount 250 / 250 560 / 560 # of times incontinent of urine Other: Meal Dinner Percent of Meal Consumed 100% # of times incontinent of 1 Bowels General appearance: severe distress, thin Exam: drowsy and minimally responsive Labored breathing Tachycardic No pallor Medical - PN: Obj Da - Labs CBC & Chem 7: 08/17/17 05:50 08/17/17 03:50 Labs: Abnormal Lab Results 08/17/17 08/17/17 08/17/17 05:50 03:50 03:50 WBC 30.3 H* 30.8 H* RBC 3.66 L 3.69 L Hgb 11.2 L 11.1 L Hct 34.8 L 35.2 L Plt Count 607 H 645 H MPV Gran % 85.5 H Lymph % (Auto) 7.8 L Gran # 26.3 H Lymph # (Auto) [place] # (Auto) 2.0 H Lymphocytes % 9 L Myelocytes % 1 H Sodium 146 H Potassium Carbon Dioxide 39 H BUN Glucose 25 L* Phosphorus GGT 138 H Alkaline Phosphatase Lactate Dehydrogenase 08/16/17 08/16/17 08/15/17 03:50 03:50 03:55 WBC 21.4 H RBC 3.36 L Hgb 10.3 L Hct 32.2 L Plt Count 540 H MPV 7.2 L Gran % 86.6 H Lymph % (Auto) 8.6 L Gran # 18.5 H Lymph # (Auto) [place] # (Auto) 1.0 H Lymphocytes % Myelocytes % Sodium Potassium Carbon Dioxide 34 H 32 H BUN 33 H 37 H Glucose 142 H 321 H Phosphorus 2.4 L GGT 136 H 141 H Alkaline Phosphatase Lactate Dehydrogenase 08/15/17 08/14/17 08/14/17 03:55 08:05 08:05 WBC 14.5 H 21.3 H RBC 3.23 L 3.60 L Hgb 9.8 L 11.0 L Hct 30.8 L 34.2 L Plt Count 508 H 528 H MPV 7.2 L Gran % 94.8 H 89.7 H Lymph % (Auto) 3.4 L 6.6 L Gran # 13.8 H 19.1 H Lymph # (Auto) 0.5 L 1.4 L [place] # (Auto) Lymphocytes % Myelocytes % Sodium Potassium 5.3 H Carbon Dioxide 34 H BUN 28 H Glucose 153 H Phosphorus GGT 162 H Alkaline Phosphatase 124 H Lactate Dehydrogenase 252 H Meds: Medications Hydrocodone Bitart/Acetaminophen ([place] 5/325mg) 1 tab PO Q6HP PRN PRN Reason: Pain Last Admin: 08/16/17 19:40 Dose: 1 tab Albuterol Sulfate (Ventolin) 2 puff INH Q2HP PRN PRN Reason: Shortness Of Breath Last Admin: 08/16/17 01:33 Dose: 2 puff Albuterol/Ipratropium (Duoneb) 3 ml NEB Q4HRT [facility] Last Admin: 08/17/17 08:06 Dose: 3 ml Amlodipine Besylate (Norvasc) 5 mg PO DAILY [facility] Last Admin: 08/16/17 08:22 Dose: 5 mg Budesonide (Pulmicort) 0.5 mg NEB Q12 [facility] Last Admin: 08/17/17 08:07 Dose: 0.5 mg Clonidine HCl (Catapres) 0.1 mg PO Q4HP PRN PRN Reason: Hypertension Last Admin: 08/17/17 02:48 Dose: 0.1 mg Dextrose (Dextrose 50%) 0 ml IV UD PRN PRN Reason: Hypoglycemia Last Admin: 08/17/17 07:00 Dose: 25 ml Diagnostic Test (Pha) (Accu-Chek) 1 each FS ACHS [facility] Last Admin: 08/17/17 07:19 Dose: 1 each Doxycycline Hyclate (Doxycycline Hyclate) 100 mg PO BID [facility] Stop: 08/19/17 17:59 Last Admin: 08/16/17 19:39 Dose: 100 mg Enoxaparin Sodium (Lovenox) 40 mg SQ DAILY [facility] Last Admin: 08/16/17 08:21 Dose: 40 mg Famotidine (Pepcid) 20 mg IV Q12 [facility] Last Admin: 08/16/17 19:40 Dose: 20 mg Gabapentin (Neurontin) 300 mg PO BID [facility] Last Admin: 08/16/17 19:39 Dose: 300 mg Glucose (Insta-Glucose) 15 gm PO PRN PRN PRN Reason: Hypoglycemia Guaifenesin (Robitussin) 200 mg PO TID [facility] Last Admin: 08/16/17 19:41 Dose: 200 mg Magnesium Sulfate (Magnesium Sulfate) 2 gm in 50 mls @ 25 mls/hr IV PRN PRN PRN Reason: MG = or < 1.7 Insulin Glargine (Lantus) 15 unit SQ BID [facility] Last Admin: 08/16/17 20:10 Dose: 15 unit Insulin Human Lispro (Humalog) 0 unit SQ ACHS [facility] PRN Reason: Protocol Last Admin: 08/17/17 07:19 Dose: Not Given [facility]othy[facility] ([facility]) [facility] Last Admin: 08/16/17 07:07 Dose: 112 mcg Lisinopril (Zestril) 10 mg PO DAILY [facility] Last Admin: 08/16/17 08:22 Dose: 10 mg Lorazepam (Ativan) 0.5 mg PO Q4HP PRN PRN Reason: ANXIETY/SEDATION Last Admin: 08/16/17 19:40 Dose: 0.5 mg Montelukast Sodium (Singular) 10 mg PO HS [facility] Last Admin: 08/16/17 19:40 Dose: 10 mg Naloxone HCl (Narcan) 0.1 mg IV Q2MIN PRN PRN Reason: Opiate Reversal Nicotine (Nicoderm) 21 mg TOPICAL DAILY@1000 [facility] Last Admin: 08/16/17 10:14 Dose: 21 mg Ondansetron HCl (Zofran) 4 mg IV Q4-6HP PRN PRN Reason: Nausea And Vomiting Paroxetine HCl (Paxil) 20 mg PO DAILY [facility] Last Admin: 08/16/17 08:27 Dose: 20 mg [facility] (Pred[facility]) [facility] Last Admin: 08/16/17 08:21 Dose: 40 mg Sodium Chloride (Saline Flush) 10 ml IV Q8 [facility] Last Admin: 08/16/17 20:49 Dose: 10 ml Throat Lozenges (Cepacol) 1 lozenge PO PRN PRN PRN Reason: Sore Throat Medical - PN: A/P - Time Spent With Patient Total time spent is greater than 50% in coordination of care (as documented) at patient's floor/unit and/or counseling patient: 25 - 35 minutes - Narrative A/P Narrative: A/P * Acute change in mental status with hypersomnolence-check ABG/ dextrose infusion, last narcotic dose around midnight, Narcan if blood gases at baseline and no response dextrose * Acute on chronic hypoxic, Hypercapnic Resp failure: Due to copd exacerbation. continue steroids/bronchodilators/oxygen * hypoglycemia:discontinue lantus start dextrose infusion * COPD exacerbation: negative chest imaging for infiltrates.on doxycycline, duonebs, and oral steroids * worsening leukocytosis at 30.3.no fever or evidence of infection * Hyperkalemia: resolved * HTN: On lisinopril * Chr pain: d/c'd soma and lower dose of hydrocodone to 5 325. 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 Medical - PN: Qual - Stroke Symptom Onset Unknown: No - VTE Deep Vein Thrombosis/Pulmonary Embolism Present on Admission: No
[2017-08-17] MEDS: 0.9 % SODIUM CHLORIDE 10 ML SYRINGE IV SCH ×3 (08:55→22:30)
[2017-08-17] MEDS ORDERED: methylPREDNISolone SOD SUCC 40 MG/ML VIAL IV SCH (09:00)
[2017-08-17] MEDS ORDERED: DEXTROSE 10 % IN WATER 1,000 ML IV SCH (09:00)
[2017-08-17] MEDS: LEVOTHYROXINE SODIUM 112 MCG TABLET PO SCH (10:38)
[2017-08-17] MEDS: predniSONE 20 MG TABLET PO SCH (10:39)
[2017-08-17] MEDS: DOXYCYCLINE HYCLATE 100 MG TABLET.ORL PO SCH (10:39)
[2017-08-17] MEDS: INSULIN GLARGINE, HUMAN 1 UNIT/0.01 ML SQ SCH (10:40)
[2017-08-17] MEDS: GABAPENTIN 300 MG CAPSULE PO SCH ×2 (10:40→20:44)
[2017-08-17] MEDS: LISINOPRIL 10 MG TABLET PO SCH (10:40)
[2017-08-17] MEDS: PARoxetine 20 MG TABLET PO SCH (10:40)
[2017-08-17] MEDS: amLODIPine 5 MG TABLET PO SCH (10:40)
[2017-08-17] MEDS: ENOXAPARIN 40 MG/0.4 ML SYRINGE SQ SCH (11:14)
[2017-08-17] MEDS: NICOTINE 21 MG PATCH TOPICAL SCH (11:15)
[2017-08-17] MEDS: FAMOTIDINE/PF 20 MG/2 ML VIAL IV SCH ×2 (11:15→20:45)
[2017-08-17] MEDS: hydrALAZINE 20 MG/ML VIAL IV PRN (11:44)
[2017-08-17] MEDS: ALBUTEROL SULFATE 1 PUFF INHALER INH PRN ×3 (11:44→20:45)
[2017-08-17] MEDS: HYDROcodone/APAP 5/325MG TABLET PO PRN ×2 (12:04→17:11)
[2017-08-17] MEDS: LORazepam 0.5 MG TABLET PO PRN ×3 (12:04→20:45)
[2017-08-17] MEDS ORDERED: VANCOMYCIN PER PHARMACY IV SCH (12:32)
[2017-08-17] MEDS: VANCOMYCIN 1,000 MG in 0.9 % SODIUM CHLORIDE 250 ML IV SCH (13:44)
[2017-08-17] MEDS: CEFEPIME 1 GM VIAL IV SCH ×2 (13:44→20:59)
[2017-08-17] MEDS: metroNIDAZOLE 500 MG/100 ML BAG IV SCH ×2 (15:01→21:29)
[2017-08-17] MEDS: THEOPHYLLINE ANHYDROUS 300 MG TAB.ER.12H PO SCH (16:56)
[2017-08-17] MEDS: MONTELUKAST 10 MG TABLET PO SCH (20:45)
[2017-08-17] MEDS: methylPREDNISolone SOD SUCC 40 MG/ML VIAL IV SCH (21:00)
[2017-08-18] MEDS: IPRATROPIUM/ALBUTEROL 3 ML AMPUL.NEB NEB SCH ×6 (03:20→23:09)
[2017-08-18] MEDS: metroNIDAZOLE 500 MG/100 ML BAG IV SCH ×3 (05:35→21:16)
[2017-08-18] MEDS: 0.9 % SODIUM CHLORIDE 10 ML SYRINGE IV SCH ×3 (05:36→21:16)
[2017-08-18 05:38] LABS: ALT/SGPT 11 U/l (0-40); Albumin 2.9 gm/dL (3.2-5.2); Albumin/Globulin Ratio 1.1 (1.0-2.3); Alkaline Phosphatase 85 U/L (39-117); Bilirubin,Direct < 0.2 mg/dL (0.0-0.3); Blood Urea Nitrogen 25 mg/dl (8-23); Gamma Glutamyl Transpeptidase 104 U/L (5-36); Uric Acid 4.6 mg/dL (2.5-8.0)
[2017-08-18 05:39] LABS: Basophils # (Auto) 0 K/mcL (0.0-0.3); Basophils % (Auto) 0 % (0.0-2.0); Eosinophils # (Auto) 0.5 K/mcL (0.0-0.7); Eosinophils % (Auto) 3.4 % (0.0-7.0); Granulocytes % (Auto) 90.5 % (38.0-78.0); Lymphocytes # (Auto) 0.6 K/mcL (1.5-4.8); Lymphocytes % (Auto) 4.2 % (15.5-49.0); Mean Cell Volume 95.1 fL (80.0-100.0); Mean Corpuscular HGB Conc 31.8 g/dL (31.0-36.0); Mean Corpuscular Hemoglobin 30.2 pg (26.0-34.0); Monocytes # (Auto) 0.3 K/mcL (0.1-0.9); Monocytes % (Auto) 1.9 % (1.0-12.0); Platelet Count 454 K/mcL (140-440); RBC 3.33 M/mcL (4.00-5.20); Red Cell Distribution Width 13.9 % (11.5-14.5)
[2017-08-18] MEDS: BUDESONIDE 0.5 MG/2 ML AMPUL.NEB NEB SCH ×2 (07:10→21:17)
[2017-08-18] MEDS: ENOXAPARIN 40 MG/0.4 ML SYRINGE SQ SCH (08:25)
[2017-08-18] MEDS: methylPREDNISolone SOD SUCC 40 MG/ML VIAL IV SCH ×2 (08:25→20:41)
[2017-08-18] MEDS: ALBUTEROL SULFATE 1 PUFF INHALER INH PRN ×3 (08:25→15:13)
[2017-08-18] MEDS: FAMOTIDINE/PF 20 MG/2 ML VIAL IV SCH ×2 (08:25→20:42)
[2017-08-18] MEDS: THEOPHYLLINE ANHYDROUS 300 MG TAB.ER.12H PO SCH ×2 (08:26→20:38)
[2017-08-18] MEDS: GABAPENTIN 300 MG CAPSULE PO SCH ×2 (08:26→20:42)
[2017-08-18] MEDS: amLODIPine 5 MG TABLET PO SCH (08:26)
[2017-08-18] MEDS: HYDROcodone/APAP 5/325MG TABLET PO PRN ×3 (08:26→20:45)
[2017-08-18] MEDS: LISINOPRIL 10 MG TABLET PO SCH (08:26)
[2017-08-18] MEDS: INSULIN LISPRO 1 UNIT/0.01 ML UNIT SQ SCH ×4 (08:26→20:39)
[2017-08-18] MEDS: NICOTINE 21 MG PATCH TOPICAL SCH (08:26)
[2017-08-18] MEDS: PARoxetine 20 MG TABLET PO SCH (08:28)
[2017-08-18] MEDS: LEVOTHYROXINE SODIUM 112 MCG TABLET PO SCH (08:29)
[2017-08-18] MEDS: LORazepam 0.5 MG TABLET PO PRN ×4 (08:52→20:43)
[2017-08-18] MEDS: VANCOMYCIN 1,000 MG in 0.9 % SODIUM CHLORIDE 250 ML IV SCH (09:55)
[2017-08-18] MEDS: CEFEPIME 1 GM VIAL IV SCH ×2 (09:57→20:40)
--- NOTE | 2017-08-18 10:59 | Internal Med Progress Note ---
Medical - PN: Subj Patient information: Note initiated : 08/18/17 at 10:53 am Service Date, if different from initiated Date: [] Patient: Zakia Gibson a 62 y/o F admitted on 08/12/17 for Shortness of Breath/COPD Exacerbation. Chief Complaint: [] Interval history: Ms. Gibson is a 62 year old Female with h/o copd on oxygen at home, still a smoker, htn, dm, chr pain, chr non compliance with treatments, presents to the ER with shortness of breath going on for the last few days, [facility] notes she has been short of breath since last discharge which was on 07/28/17, she has had 4 visits to the Er, and 2 back to back visits today, yesterday . She notes she is short of breath, with chest tightness,no chest pain, has dry cough, increased fatigue and decreased effort tolerance. She was here yesterday and was started on steroids, she notes she is taking those, she has ran out of all medications except duonebs, she notes she has been using it all night, without much help. She denies any sick contacts, The patient has not followed up with her PCP since her last discharge, and despite multiple episodes of counselling, still smokes. Her sister who is the power of associate professor of geology was also at bed side today The patient wishes to be full code, I explained her and her sister her overall poor prognosis given her severe uncontrolled COPD, they verbalized understanding. In the Er she was tachycardic and tachypenic, Her ABG showed ph 7.39/71/60, on oxygen. The patient has poor air entry, chr leucocytosis and neg Chest x ray. She had a low grade temp. The patient is Blood gas shows much worse Co2 than her previous Co2 values, and given her increased work of breating, will admit her to the hospitak, to pcu status for further management. aug 13 Patient seen examined, this am, doing better, still has shortness of breath, but better than yesterday,Her abg shows some what more worsening co2 retention this AM, but she refused bipap yesterday. She received one 10mg hydrocodone and soma, and was knocked out at night, which may be responsible for worsening co2 status. She notes she takes muscle relaxants as well as hydrocodone 20mg,I think this is a a very high dose for her and as she was clearly knocked out with a lower dose, plan to cut bck dose of hydrocodone to 5-325 now, and d/c soma. Patient will continue to be monitored for the day. She has also refused fingerstick glucose monitoring, educated the need for same Aug 14 Patient seen examined, no acute overnight issues, breathing better but still rough has shortness of breath, no cough, Glucose level better Aug 15 patient seen examined, no acute overnight issues, pt still has sob, but improving, remains tachcyaredic tsh is neg, will get echo to evaluate cardiac function, and pulmonary HTN tachycardia could likely be secondary to use of b2 agonist for [place] of [place], pt is requesting inhlaer q2hrs on po steroids now. labs stable. 08/16-patient continues to deteriorate with worsening respiratory status.white count at 21,400 up from 13.2. persistent tachycardia in mid 120s.on 2 L oxygen. Very labored and unable to talk in full sentences. patient has advanced COPD carrying a poor prognosis however she appears to have a poor understanding of disease process and wanted information on lung transplant. She still continues to smoke despite multiple ER visits in the last year with COPD exacerbations. 08/17-patient clinically deteriorating and very lethargic and fatigued. Difficulty arousing. Check ABGs. White count of 30,300. No clear source identified. No overnight fever or low blood pressures and evidence of end organ dysfunction. await pro-calcitonin. patient has carries a very high risk mortality however insists on being full code. persistent tachycardia around 115. Labored breathing. blood cultures negative so far. blood sugar this morning at 25 and subsequently received dextrose. Lantus 15 units at bedtime discontinued. erratic blood sugars swinging up to 400s. 08/18 Patient seen examined, somewhat better today, echo reviewed, moderate Pulm HTN, remains tachycardic, short of breath, and unable to breath well.Discussed that she has poor prognosis, pt still desires everthing to be done. Discussed the case with pulmonary. Who advised to continue with present management, and add theophylline, added yesterday, X ray suggestive of pna? IV vanco, cefepime added wbc improved today. will get CTA for pe today, still wheezing Pertinent ROS: Constitutional; Afebrile, cooperative, alert, mild distress, Eyes- No icterus, , No periorbital swelling Ears- Ext ear normal, hearing normal to conversation. Neck- Midline trachea, supple Respiratory system: Air Entry equal on both sides,poor air entry, [place] exp wheezing. CVS- Rate tachycardia, rhythm regular, S1,S2 heard, no gallop, no rub. Abdomen- Soft nontender abdomen, no organomegaly, no tenderness, no guarding or rigidity, PROCESS CONTROL SPECIALIST- AOOx3, moving all extremities, no gross focal deficit noted. - Constitutional Vitals: Vital Signs Temp Pulse Resp BP Pulse Ox 98.1 F 102 H 26 H 151/77 90 08/18/17 08:23 08/18/17 07:24 08/18/17 08:23 08/18/17 08:23 08/18/17 08:23 Period Temp Pulse Resp BP Sys/Gutierrez Pulse Ox Last 24 Hr 97.0 F-99.4 F 102-127 16-26 119-176/68-91 90-100 Intake and Output 08/17/17 08/18/17 08/18/17 21:59 05:59 13:59 Intake Total 1690 / 1690 150 / 150 100 / 100 Output Total Balance 1689 / 1689 150 / 150 99 / 99 Weight 122 lb Intake & Output: Intake & Output 08/17/17 08/18/17 08/18/17 21:59 05:59 13:59 Intake Total 1690 / 1690 150 / 150 100 / 100 Output Total Balance 1689 / 1689 150 / 150 99 / 99 Weight 122 lb Intake: IV 350 / 350 100 / 100 100 / 100 Vancomycin 1,000 mg In Sodium 250 / 250 Chloride 0.9% 250 ml @ 250 mls/ hr IV Q24H [facility]O Rx#:[id number] Oral 1340 / 1340 50 / 50 Output: # of times incontinent of urine Other: Meal HS snack Percent of Meal Consumed 100% Feeding Ability Assist with Tray Set Up # Voids 1 1 Medical - PN: Obj Da - Labs CBC & Chem 7: 08/18/17 03:40 08/18/17 03:40 Labs: Abnormal Lab Results 08/18/17 08/18/17 08/17/17 03:40 03:40 05:50 WBC 14.5 H 30.3 H* RBC 3.33 L 3.66 L Hgb 10.1 L 11.2 L Hct 31.6 L 34.8 L Plt Count 454 H 607 H MPV Gran % 90.5 H Lymph % (Auto) 4.2 L Gran # 13.1 H Lymph # (Auto) 0.6 L [place] # (Auto) Lymphocytes % 9 L Myelocytes % 1 H Sodium Carbon Dioxide 35 H BUN 25 H Glucose 222 H Phosphorus GGT 104 H Total Protein 5.6 L Albumin 2.9 L 08/17/17 08/17/17 08/16/17 03:50 03:50 03:50 WBC 30.8 H* RBC 3.69 L Hgb 11.1 L Hct 35.2 L Plt Count 645 H MPV Gran % 85.5 H Lymph % (Auto) 7.8 L Gran # 26.3 H Lymph # (Auto) [place] # (Auto) 2.0 H Lymphocytes % Myelocytes % Sodium 146 H Carbon Dioxide 39 H 34 H BUN 33 H Glucose 25 L* 142 H Phosphorus 2.4 L GGT 138 H 136 H Total Protein Albumin 08/16/17 03:50 WBC 21.4 H RBC 3.36 L Hgb 10.3 L Hct 32.2 L Plt Count 540 H MPV 7.2 L Gran % 86.6 H Lymph % (Auto) 8.6 L Gran # 18.5 H Lymph # (Auto) [place] # (Auto) 1.0 H Lymphocytes % Myelocytes % Sodium Carbon Dioxide BUN Glucose Phosphorus GGT Total Protein Albumin Meds: Medications Hydrocodone Bitart/Acetaminophen ([place] 5/325mg) 1 tab PO Q6HP PRN PRN Reason: Pain Last Admin: 08/18/17 08:26 Dose: 1 tab Albuterol Sulfate (Ventolin) 2 puff INH Q2HP PRN PRN Reason: Shortness Of Breath Last Admin: 08/18/17 08:25 Dose: 2 puff Albuterol/Ipratropium (Duoneb) 3 ml NEB Q4HRT [facility] Last Admin: 08/18/17 07:10 Dose: 3 ml Amlodipine Besylate (Norvasc) 5 mg PO DAILY [facility] Last Admin: 08/18/17 08:26 Dose: 5 mg Budesonide (Pulmicort) 0.5 mg NEB Q12 [facility] Last Admin: 08/18/17 07:10 Dose: 0.5 mg Cefepime HCl (Maxipime) 1 gm IV Q12H [facility] Last Admin: 08/18/17 09:57 Dose: 1 gm Clonidine HCl (Catapres) 0.1 mg PO Q4HP PRN PRN Reason: Hypertension Last Admin: 08/17/17 02:48 Dose: 0.1 mg Dextrose (Dextrose 50%) 0 ml IV UD PRN PRN Reason: Hypoglycemia Last Admin: 08/17/17 08:40 Dose: 25 ml Diagnostic Test (Pha) (Accu-Chek) 1 each FS ACHS [facility] Last Admin: 08/18/17 08:11 Dose: 1 each Enoxaparin Sodium (Lovenox) 40 mg SQ DAILY [facility] Last Admin: 08/18/17 08:25 Dose: 40 mg Famotidine (Pepcid) 20 mg IV Q12 [facility] Last Admin: 08/18/17 08:25 Dose: 20 mg Gabapentin (Neurontin) 300 mg PO BID [facility] Last Admin: 08/18/17 08:26 Dose: 300 mg Glucose (Insta-Glucose) 15 gm PO PRN PRN PRN Reason: Hypoglycemia Guaifenesin (Robitussin) 200 mg PO TID [facility] Last Admin: 08/18/17 08:25 Dose: 200 mg Hydralazine HCl (Apresoline) 10 mg IV Q6HP PRN PRN Reason: Hypertension Last Admin: 08/17/17 11:44 Dose: 10 mg Magnesium Sulfate (Magnesium Sulfate) 2 gm in 50 mls @ 25 mls/hr IV PRN PRN PRN Reason: MG = or < 1.7 Metronidazole (Flagyl) 500 mg in 100 mls @ 100 mls/hr IV Q8H [facility] Last Infusion: 08/18/17 06:45 Dose: Infused Vancomycin HCl 1,000 mg/ (Sodium Chloride) 250 mls @ 250 mls/hr IV Q24H [facility] Last Admin: 08/18/17 09:55 Dose: 250 mls/hr Insulin Human Lispro (Humalog) 0 unit SQ ACHS [facility] PRN Reason: Protocol Last Admin: 08/18/17 08:26 Dose: 3 unit Levothyroxine Sodium (Synthroid) 112 mcg PO QAMAC [facility] Last Admin: 08/18/17 08:29 Dose: 112 mcg Lisinopril (Zestril) 10 mg PO DAILY [facility] Last Admin: 08/18/17 08:26 Dose: 10 mg Lorazepam (Ativan) 0.5 mg PO Q4HP PRN PRN Reason: ANXIETY/SEDATION Last Admin: 08/18/17 08:52 Dose: 0.5 mg Methylprednisolone Sodium Succinate (Solu-Medrol) 40 mg IV BID [facility] Last Admin: 08/18/17 08:25 Dose: 40 mg Montelukast Sodium (Singular) 10 mg PO HS [facility] Last Admin: 08/17/17 20:45 Dose: 10 mg Naloxone HCl (Narcan) 0.1 mg IV Q2MIN PRN PRN Reason: Opiate Reversal Nicotine (Nicoderm) 21 mg TOPICAL DAILY@1000 [facility] Last Admin: 08/18/17 08:26 Dose: 21 mg Ondansetron HCl (Zofran) 4 mg IV Q4-6HP PRN PRN Reason: Nausea And Vomiting Paroxetine HCl (Paxil) 20 mg PO DAILY [facility] Last Admin: 08/18/17 08:28 Dose: 20 mg Sodium Chloride (Saline Flush) 10 ml IV Q8 [facility] Last Admin: 08/18/17 05:36 Dose: 10 ml Theophylline (Theophylline Anhydrous) 150 mg PO BID [facility] Last Admin: 08/18/17 08:26 Dose: 150 mg Throat Lozenges (Cepacol) 1 lozenge PO PRN PRN PRN Reason: Sore Throat Vancomycin HCl (Vancomycin Per Pharmacy) 1 order IV UD [facility] Medical - PN: A/P - Time Spent With Patient Total time spent is greater than 50% in coordination of care (as documented) at patient's floor/unit and/or counseling patient: - Narrative A/P Narrative: A/P Acute on chronic hypoxic, Hypercapnic Resp failure: Due to copd, supplemental oxygen now, pt is still on oxygen 2-3 L which is her baseline. Needed bipap yesterday, but now back to Nasal canula, ABG reviewed. COPD exacerbation: duonebs, and steroids,back on IV solumedrol to 40 bid. HCAP pneumonia: IV vanco and cefepime for now, d2 today, improved leucocytosis, monitor Hypoglycemia: noted yesterday, likely due to poor intake, patients glucose improved, resume lantus at lower dosing. Hyperkalemia: resolved, monitor. DM: Lantus and ssi for now, low glucose yesterday, adjust dosing of Lantus and ssi, on Lantus 10 bid, and medium scale ssi for now. HTN: On lisinopril BP stable Chr pain: On chr muscle relaxants and pain meds. Given that she was drowsy even with one dose of hydrocodone, and Soma, will d/c soma and cut dose of hydrocodone from 10-325 to 5 325, pt has not had any major complaints today, continue gabapentin. Chr leucocytosis: Stable, today, had worsened, but now back to normal. likely infection caused worsening of leucocytosos Tachycardia: due to duonebs, copd exacerbation, check echo shows mod pulm htn, get CTA for PE. DVT lovenox sq 40mg Diet carb consistent Full code overall prognosis is poor given advanced copd, non compliance to treatment and smoking. Medical - PN: Qual - Stroke Symptom Onset Unknown: No - VTE Deep Vein Thrombosis/Pulmonary Embolism Present on Admission: No
[2017-08-18] MEDS ORDERED: IOPAMIDOL 100 ML BOTTLE IV ONE (11:13)
--- NOTE | 2017-08-18 11:47 | Cat Scan Report ---
CLINICAL INFORMATION: Tachycardia and shortness of breath COMPARISON: Chest CT from 07/17/2014 and 07/16/2016. TECHNIQUE: 80 cc of Isovue-300 were injected intravenously. Using SmartPrep to maximize pulmonary artery opacification, 2.5 mm helical slices were obtained from the lung apices through the lung bases. Following reconstruction, 2.5 mm sagittal, coronal, and axial reformations were processed. The exam was reviewed at mediastinal, lung, and bone windows. The exam was performed using radiation dose optimization techniques including, but not limited to, automated exposure control, adjustment of the mA and/or kV according to patient size and use of iterative reconstruction technique. FINDINGS: The pulmonary arteries well opacified and normal in contour and caliber - no embolus appreciated. Thoracic aorta is also normal in diameter with diffuse atherosclerotic plaque. There is no adenopathy in the mediastinal, hilar or axillary regions. Esophagus is grossly normal. The heart is normal in size and is heavy calcific plaque in the coronary arteries. There is also heavy calcification in the region of mitral valve. Thyroid is unremarkable. Pulmonary parenchymal windows show a moderate sized vague tree-in-bud infiltrate in the anterior segment of the left upper lobe with a small consolidated alveolar component of the perimediastinal region. A small tree-in-bud infiltrate is also seen in the perimediastinal right upper lobe. In the right middle lobe, there is a 16 mm vague nodular density adjacent to major fissure which is almost certainly inflammatory. There is also mild peribronchial vascular infiltrate in the medial segment of the right middle lobe. In the right lower lobe, there are scattered consolidated peribronchovascular focal infiltrates and also scattered tree-in-bud infiltrates. The left lower lobe shows scattered nodular infiltrates peripherally which are quite small. Bone windows show mild old T6 compression fracture - stable. 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 Common bile duct remains mildly dilated - 12 mm. The; however, slightly improved from the previous study - at that time it was was 16 mm IMPRESSION: 1. No evidence of pulmonary embolus 2. Moderate sized tree-in-bud infiltrate in the anterior segment left upper lobe, small tree-in-bud infiltrate perimediastinal right upper lobe. Scattered focal alveolar and tree-in-bud infiltrates present in the right middle and lower lobes with very small scattered peripheral infiltrate in the left lower lobe. All findings are new from the previous study. Primary diagnostic considerations would include aspiration or multifocal pneumonia. 3. 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 Patient is at risk for mesenteric ischemia 4. Mild dilatation of the common bile duct, 12 mm , which is improved previous study 5. Heavy mitral valve calcification stable Interpreted and Authenticated by: Gerry Danielson 08/18/17
[2017-08-18] MEDS: INSULIN GLARGINE, HUMAN 1 UNIT/0.01 ML SQ SCH ×2 (13:01→20:40)
[2017-08-18] MEDS: MONTELUKAST 10 MG TABLET PO SCH (20:42)
[2017-08-19] MEDS: hydrALAZINE 20 MG/ML VIAL IV PRN (00:06)
[2017-08-19] MEDS: LORazepam 0.5 MG TABLET PO PRN ×5 (03:14→21:32)
[2017-08-19] MEDS: IPRATROPIUM/ALBUTEROL 3 ML AMPUL.NEB NEB SCH ×6 (03:14→23:06)
[2017-08-19] MEDS: HYDROcodone/APAP 5/325MG TABLET PO PRN ×4 (03:15→21:32)
[2017-08-19] MEDS: metroNIDAZOLE 500 MG/100 ML BAG IV SCH ×3 (04:56→21:40)
[2017-08-19] MEDS: 0.9 % SODIUM CHLORIDE 10 ML SYRINGE IV SCH ×3 (05:53→21:35)
[2017-08-19 06:37] LABS: Basophils # (Auto) 0 K/mcL (0.0-0.3); Basophils % (Auto) 0.2 % (0.0-2.0); Eosinophils # (Auto) 0.5 K/mcL (0.0-0.7); Eosinophils % (Auto) 3.4 % (0.0-7.0); Granulocytes % (Auto) 90.8 % (38.0-78.0); Lymphocytes # (Auto) 0.7 K/mcL (1.5-4.8); Lymphocytes % (Auto) 4.1 % (15.5-49.0); Mean Cell Volume 94.7 fL (80.0-100.0); Mean Corpuscular HGB Conc 32.1 g/dL (31.0-36.0); Mean Corpuscular Hemoglobin 30.3 pg (26.0-34.0); Monocytes # (Auto) 0.2 K/mcL (0.1-0.9); Monocytes % (Auto) 1.5 % (1.0-12.0); Platelet Count 458 K/mcL (140-440); Red Cell Distribution Width 13.7 % (11.5-14.5)
[2017-08-19 06:58] LABS: ALT/SGPT 12 U/l (0-40); Albumin 3.2 gm/dL (3.2-5.2); Albumin/Globulin Ratio 1.1 (1.0-2.3); Alkaline Phosphatase 84 U/L (39-117); Bilirubin,Direct < 0.2 mg/dL (0.0-0.3); Blood Urea Nitrogen 31 mg/dl (8-23); Gamma Glutamyl Transpeptidase 101 U/L (5-36); Uric Acid 5.2 mg/dL (2.5-8.0)
[2017-08-19] MEDS: BUDESONIDE 0.5 MG/2 ML AMPUL.NEB NEB SCH ×2 (07:15→21:01)
[2017-08-19] MEDS: INSULIN LISPRO 1 UNIT/0.01 ML UNIT SQ SCH ×4 (08:33→21:31)
[2017-08-19] MEDS: INSULIN GLARGINE, HUMAN 1 UNIT/0.01 ML SQ SCH ×2 (08:34→21:31)
[2017-08-19] MEDS: GABAPENTIN 300 MG CAPSULE PO SCH ×2 (08:42→21:32)
[2017-08-19] MEDS: LISINOPRIL 10 MG TABLET PO SCH (08:42)
[2017-08-19] MEDS: LEVOTHYROXINE SODIUM 112 MCG TABLET PO SCH (08:42)
[2017-08-19] MEDS: PARoxetine 20 MG TABLET PO SCH (08:42)
[2017-08-19] MEDS: CEFEPIME 1 GM VIAL IV SCH ×2 (08:56→21:33)
[2017-08-19] MEDS: FAMOTIDINE/PF 20 MG/2 ML VIAL IV SCH ×2 (09:06→21:34)
[2017-08-19] MEDS: ALBUTEROL SULFATE 1 PUFF INHALER INH PRN ×4 (09:11→20:42)
[2017-08-19] MEDS: THEOPHYLLINE ANHYDROUS 300 MG TAB.ER.12H PO SCH ×2 (09:12→21:35)
[2017-08-19] MEDS: ENOXAPARIN 40 MG/0.4 ML SYRINGE SQ SCH (09:12)
[2017-08-19] MEDS: methylPREDNISolone SOD SUCC 40 MG/ML VIAL IV SCH ×2 (09:12→21:34)
[2017-08-19] MEDS: NICOTINE 21 MG PATCH TOPICAL SCH (09:12)
[2017-08-19] MEDS: cloNIDine HCL 0.1 MG TABLET PO PRN ×2 (09:13→15:48)
[2017-08-19] MEDS: amLODIPine 5 MG TABLET PO SCH (09:13)
[2017-08-19] MEDS: VANCOMYCIN 1,000 MG in 0.9 % SODIUM CHLORIDE 250 ML IV SCH (10:00)
--- NOTE | 2017-08-19 10:39 | Internal Med Progress Note ---
Medical - PN: Subj Patient information: Note initiated : 08/19/17 at 10:36 am Service Date, if different from initiated Date: [] Patient: Zakia Gibson a 62 y/o F admitted on 08/12/17 for Shortness of Breath/COPD Exacerbation. Chief Complaint: [] Interval history: Ms. Gibson is a 62 year old Female with h/o copd on oxygen at home, still a smoker, htn, dm, chr pain, chr non compliance with treatments, presents to the ER with shortness of breath going on for the last few days, [facility] she notes she has been short of breath since last discharge which was on 07/28/17, she has had 4 visits to the Er, and 2 back to back visits today, yesterday . She notes she is short of breath, with chest tightness,no chest pain, has dry cough, increased fatigue and decreased effort tolerance. She was here yesterday and was started on steroids, she notes she is taking those, she has ran out of all medications except duonebs, she notes she has been using it all night, without much help. She denies any sick contacts, The patient has not followed up with her PCP since her last discharge, and despite multiple episodes of counselling, still smokes. Her sister who is the power of vegetable tester was also at bed side today The patient wishes to be full code, I explained her and her sister her overall poor prognosis given her severe uncontrolled COPD, they verbalized understanding. In the Er she was tachycardic and tachypenic, Her ABG showed ph 7.39/71/60, on oxygen. The patient has poor air entry, chr leucocytosis and neg Chest x ray. She had a low grade temp. The patient is Blood gas shows much worse Co2 than her previous Co2 values, and given her increased work of breating, will admit her to the hospitak, to pcu status for further management. aug 13 Patient seen examined, this am, doing better, still has shortness of breath, but better than yesterday,Her abg shows some what more worsening co2 retention this AM, but she refused bipap yesterday. She received one 10mg hydrocodone and soma, and was knocked out at night, which may be responsible for worsening co2 status. She notes she takes muscle relaxants as well as hydrocodone 20mg,I think this is a a very high dose for her and as she was clearly knocked out with a lower dose, plan to cut bck dose of hydrocodone to 5-325 now, and d/c soma. Patient will continue to be monitored for the day. She has also refused fingerstick glucose monitoring, educated the need for same Aug 14 Patient seen examined, no acute overnight issues, breathing better but still rough has shortness of breath, no cough, Glucose level better Aug 15 patient seen examined, no acute overnight issues, pt still has sob, but improving, remains tachcyaredic tsh is neg, will get echo to evaluate cardiac function, and pulmonary HTN tachycardia could likely be secondary to use of b2 agonist for [place] of [place], pt is requesting inhlaer q2hrs on po steroids now. labs stable. 08/16-patient continues to deteriorate with worsening respiratory status.white count at 21,400 up from 13.2. persistent tachycardia in mid 120s.on 2 L oxygen. Very labored and unable to talk in full sentences. patient has advanced COPD carrying a poor prognosis however she appears to have a poor understanding of disease process and wanted information on lung transplant. She still continues to smoke despite multiple ER visits in the last year with COPD exacerbations. 08/17-patient clinically deteriorating and very lethargic and fatigued. Difficulty arousing. Check ABGs. White count of 30,300. No clear source identified. No overnight fever or low blood pressures and evidence of end organ dysfunction. await pro-calcitonin. patient has carries a very high risk mortality however insists on being full code. persistent tachycardia around 115. Labored breathing. blood cultures negative so far. blood sugar this morning at 25 and subsequently received dextrose. Lantus 15 units at bedtime discontinued. erratic blood sugars swinging up to 400s. 08/18 Patient seen examined, somewhat better today, echo reviewed, moderate Pulm HTN, remains tachycardic, short of breath, and unable to breath well.Discussed that she has poor prognosis, pt still desires everthing to be done. Discussed the case with pulmonary. Who advised to continue with present management, and add theophylline, added yesterday, X ray suggestive of pna? IV vanco, cefepime added wbc improved today. will get CTA for pe today, still wheezing 08/19 Patient seen examined, overnight issues noted, pt had called his friend to bring some narcotic pain medications, was caught and pills confiscated patient has h/o overuse of narcotics and likely is addicted to them. She admits to same. Educated that she is not able to have any visitors now given that they cannot be trusted to bring her meds Her CTA is neg for PE, does show show pneumonia which is being treated her BP Is elevated, start on cardizem 180mg qd, which I hope will also help with her heart rate Her Breathing is better today and she seems to be doing well at present. Pertinent ROS: Denies headache, dizziness Denies chest pain, palpitations Denies cough or shortness of breath (improvfed sob) Denies abdominal pain, nausea or vomiting. - Constitutional Vitals: Vital Signs Temp Pulse Resp BP Pulse Ox 97.4 F 109 H 16 173/81 93 08/19/17 08:00 08/19/17 07:39 08/19/17 08:00 08/19/17 08:00 08/19/17 08:00 Period Temp Pulse Resp BP Sys/Gutierrez Pulse Ox Last 24 Hr 97.2 F-99.3 F 102-124 12-26 138-173/63-81 3-99 Intake and Output 08/18/17 08/19/17 08/19/17 21:59 05:59 13:59 Intake Total 100 / 100 300 / 300 340 / 340 Output Total 575 / 575 450 / 450 Balance -475 / -475 299 / 299 -110 / -110 Weight 127 lb 1.6 oz Intake & Output: Intake & Output 08/18/17 08/19/17 08/19/17 21:59 05:59 13:59 Intake Total 100 / 100 300 / 300 340 / 340 Output Total 575 / 575 450 / 450 Balance -475 / -475 299 / 299 -110 / -110 Weight 127 lb 1.6 oz Intake: IV 100 / 100 100 / 100 100 / 100 Oral 200 / 200 240 / 240 Output: Void Amount 575 / 575 450 / 450 # of times incontinent of urine Other: Meal snack Breakfast Percent of Meal Consumed 100% 100% Feeding Ability Assist with Tray Set Up # Voids 1 1 # Bowel Movements 1 Exam: Constitutional; Afebrile, cooperative, alert, not in distress. Eyes- No icterus, , No periorbital swelling Ears- Ext ear normal, hearing normal to conversation. Neck- Midline trachea, supple Respiratory system: Air Entry equal on both sides, No crackles or wheezing, no rhonchi. CVS- Rate tachycardic rhythm regular, S1,S2 heard, no gallop, no rub. Abdomen- Soft nontender abdomen, no organomegaly, no tenderness, no guarding or rigidity, [employer]- AOOx3, moving all extremities, no gross focal deficit noted. Medical - PN: Obj Da - Labs CBC & Chem 7: 08/19/17 03:55 08/19/17 03:55 Labs: Abnormal Lab Results 08/19/17 08/19/17 08/18/17 03:55 03:55 03:40 WBC 16.1 H RBC 3.40 L Hgb 10.3 L Hct 32.2 L Plt Count 458 H Gran % 90.8 H Lymph % (Auto) 4.1 L Gran # 14.6 H Lymph # (Auto) 0.7 L Woods # (Auto) Lymphocytes % Myelocytes % Sodium Chloride 95 L Carbon Dioxide 35 H BUN 31 H 25 H Glucose 273 H 222 H GGT 101 H 104 H Total Protein 5.6 L Albumin 2.9 L 08/18/17 08/17/17 08/17/17 03:40 05:50 03:50 WBC 14.5 H 30.3 H* RBC 3.33 L 3.66 L Hgb 10.1 L 11.2 L Hct 31.6 L 34.8 L Plt Count 454 H 607 H Gran % 90.5 H Lymph % (Auto) 4.2 L Gran # 13.1 H Lymph # (Auto) 0.6 L Woods # (Auto) Lymphocytes % 9 L Myelocytes % 1 H Sodium 146 H Chloride Carbon Dioxide 39 H BUN Glucose 25 L* GGT 138 H Total Protein Albumin 08/17/17 03:50 WBC 30.8 H* RBC 3.69 L Hgb 11.1 L Hct 35.2 L Plt Count 645 H Gran % 85.5 H Lymph % (Auto) 7.8 L Gran # 26.3 H Lymph # (Auto) Woods # (Auto) 2.0 H Lymphocytes % Myelocytes % Sodium Chloride Carbon Dioxide BUN Glucose GGT Total Protein Albumin Meds: Medications Hydrocodone Bitart/Acetaminophen ([place] 5/325mg) 1 tab PO Q6HP PRN PRN Reason: Pain Last Admin: 08/19/17 09:13 Dose: 1 tab Albuterol Sulfate (Ventolin) 2 puff INH Q2HP PRN PRN Reason: Shortness Of Breath Last Admin: 08/19/17 09:11 Dose: 2 puff Albuterol/Ipratropium (Duoneb) 3 ml NEB Q4HRT [facility] Last Admin: 08/19/17 07:15 Dose: 3 ml Amlodipine Besylate (Norvasc) 5 mg PO DAILY [facility] Last Admin: 08/19/17 09:13 Dose: 5 mg Budesonide (Pulmicort) 0.5 mg NEB Q12 [facility] Last Admin: 08/19/17 07:15 Dose: 0.5 mg Cefepime HCl (Maxipime) 1 gm IV Q12H [facility] Last Admin: 08/19/17 08:56 Dose: 1 gm Clonidine HCl (Catapres) 0.1 mg PO Q4HP PRN PRN Reason: Hypertension Last Admin: 08/19/17 09:13 Dose: 0.1 mg Dextrose (Dextrose 50%) 0 ml IV UD PRN PRN Reason: Hypoglycemia Last Admin: 08/17/17 08:40 Dose: 25 ml Diagnostic Test (Pha) (Accu-Chek) 1 each FS ACHS [facility] Last Admin: 08/19/17 08:33 Dose: 1 each Enoxaparin Sodium (Lovenox) 40 mg SQ DAILY [facility] Last Admin: 08/19/17 09:12 Dose: 40 mg Famotidine (Pepcid) 20 mg IV Q12 [facility] Last Admin: 08/19/17 09:06 Dose: 20 mg Gabapentin (Neurontin) 300 mg PO BID [facility] Last Admin: 08/19/17 08:42 Dose: 300 mg Glucose (Insta-Glucose) 15 gm PO PRN PRN PRN Reason: Hypoglycemia Guaifenesin (Robitussin) 200 mg PO TID [facility] Last Admin: 08/19/17 09:13 Dose: 200 mg Hydralazine HCl (Apresoline) 10 mg IV Q6HP PRN PRN Reason: Hypertension Last Admin: 08/19/17 00:06 Dose: 10 mg Magnesium Sulfate (Magnesium Sulfate) 2 gm in 50 mls @ 25 mls/hr IV PRN PRN PRN Reason: MG = or < 1.7 Metronidazole (Flagyl) 500 mg in 100 mls @ 100 mls/hr IV Q8H [facility] Last Infusion: 08/19/17 06:30 Dose: Infused Vancomycin HCl 1,000 mg/ (Sodium Chloride) 250 mls @ 250 mls/hr IV Q24H [facility] Last Infusion: 08/18/17 11:00 Dose: Infused Insulin Glargine (Lantus) 10 unit SQ BID [facility] Last Admin: 08/19/17 08:34 Dose: 10 unit Insulin Human Lispro (Humalog) 0 unit SQ ACHS [facility] PRN Reason: Protocol Last Admin: 08/19/17 08:33 Dose: 8 unit Levothyroxine Sodium (Synthroid) 112 mcg PO QAMAC [facility] Last Admin: 08/19/17 08:42 Dose: 112 mcg Lisinopril (Zestril) 10 mg PO DAILY [facility] Last Admin: 08/19/17 08:42 Dose: 10 mg Lorazepam (Ativan) 1 mg PO Q4HP PRN PRN Reason: ANXIETY/SEDATION Last Admin: 08/19/17 09:13 Dose: 1 mg Methylprednisolone Sodium Succinate (Solu-Medrol) 40 mg IV BID [facility] Last Admin: 08/19/17 09:12 Dose: 40 mg Montelukast Sodium (Singular) 10 mg PO HS [facility] Last Admin: 08/18/17 20:42 Dose: 10 mg Naloxone HCl (Narcan) 0.1 mg IV Q2MIN PRN PRN Reason: Opiate Reversal Nicotine (Nicoderm) 21 mg TOPICAL DAILY@1000 [facility] Last Admin: 08/19/17 09:12 Dose: 21 mg Ondansetron HCl (Zofran) 4 mg IV Q4-6HP PRN PRN Reason: Nausea And Vomiting Paroxetine HCl (Paxil) 20 mg PO DAILY [facility] Last Admin: 08/19/17 08:42 Dose: 20 mg Sodium Chloride (Saline Flush) 10 ml IV Q8 [facility] Last Admin: 08/19/17 05:53 Dose: 10 ml Theophylline (Theophylline Anhydrous) 150 mg PO BID [facility] Last Admin: 08/19/17 09:12 Dose: 150 mg Throat Lozenges (Cepacol) 1 lozenge PO PRN PRN PRN Reason: Sore Throat Vancomycin HCl (Vancomycin Per Pharmacy) 1 order IV UD [facility] Medical - PN: A/P - Time Spent With Patient Total time spent is greater than 50% in coordination of care (as documented) at patient's floor/unit and/or counseling patient: - Narrative A/P Narrative: A/P Acute on chronic hypoxic, Hypercapnic Resp failure: Due to copd, supplemental oxygen now, pt is still on oxygen 2-3 L which is her baseline. Needed bipap yesterday, but now back to Nasal canula, ABG reviewed. Narcotic addiction/ Abuse: Caught with hydrocodone pills from home, educated need to abstain as her teneous resp condition will likely result in resp depression and . COPD exacerbation: duonebs, and steroids, clinically improving. on theophyline 150mg bid. HCAP pneumonia: IV vanco and cefepime for now, d3 today, improving. Hypoglycemia: resolved. Hyperkalemia: resolved, monitor. DM: Lantus and ssi for now, low glucose now back up, increase lantus to 15units bid, continue med scale ssi. HTN: On lisinopril, bp elevated, add Cardizem. Chr pain: On chr muscle relaxants and pain meds. Given that she was drowsy even with one dose of hydrocodone, and Soma, will d/c soma and cut dose of hydrocodone from 10-325 to 5 325, continue gabapentin. Chr leucocytosis: Stable, today, had worsened, but now back to normal. likely infection caused worsening of leucocytosis , CT is neg for pE, start Cardizem which should help with BP and HR. DVT Lovenox sq 40mg Diet carb consistent Full code overall prognosis is poor given advanced copd, non compliance to treatment and smoking, she also is addicted to narcotic pain medications, which make treating her condition difficult. . Medical - PN: Qual - Stroke Symptom Onset Unknown: No - VTE Deep Vein Thrombosis/Pulmonary Embolism Present on Admission: No
[2017-08-19] MEDS ORDERED: INSULIN GLARGINE, HUMAN 1 UNIT/0.01 ML SQ ONE (10:44)
[2017-08-19] MEDS: DILTIAZEM 180 MG CAP.XL.24H PO SCH (12:44)
[2017-08-19] MEDS: MONTELUKAST 10 MG TABLET PO SCH (21:32)
[2017-08-20] MEDS ORDERED: OLANZapine 10 MG VIAL IM ONE (02:56)
[2017-08-20] MEDS: IPRATROPIUM/ALBUTEROL 3 ML AMPUL.NEB NEB SCH ×6 (03:34→22:50)
[2017-08-20] MEDS: LORazepam 0.5 MG TABLET PO PRN ×3 (04:51→20:33)
[2017-08-20] MEDS: HYDROcodone/APAP 5/325MG TABLET PO PRN ×3 (04:51→20:33)
[2017-08-20] MEDS: metroNIDAZOLE 500 MG/100 ML BAG IV SCH ×3 (05:21→22:18)
[2017-08-20 05:32] LABS: Basophils # (Auto) 0 K/mcL (0.0-0.3); Basophils % (Auto) 0.2 % (0.0-2.0); Eosinophils # (Auto) 0.5 K/mcL (0.0-0.7); Eosinophils % (Auto) 3.6 % (0.0-7.0); Granulocytes % (Auto) 91.2 % (38.0-78.0); Lymphocytes # (Auto) 0.5 K/mcL (1.5-4.8); Lymphocytes % (Auto) 3.7 % (15.5-49.0); Mean Cell Volume 94.8 fL (80.0-100.0); Mean Corpuscular HGB Conc 31.8 g/dL (31.0-36.0); Mean Corpuscular Hemoglobin 30.2 pg (26.0-34.0); Monocytes # (Auto) 0.2 K/mcL (0.1-0.9); Monocytes % (Auto) 1.3 % (1.0-12.0); Platelet Count 451 K/mcL (140-440); RBC 3.17 M/mcL (4.00-5.20); Red Cell Distribution Width 14.1 % (11.5-14.5)
[2017-08-20 05:53] LABS: ALT/SGPT 11 U/l (0-40); Albumin 3.2 gm/dL (3.2-5.2); Albumin/Globulin Ratio 1.3 (1.0-2.3); Alkaline Phosphatase 75 U/L (39-117); Bilirubin,Direct < 0.2 mg/dL (0.0-0.3); Blood Urea Nitrogen 40 mg/dl (8-23); Gamma Glutamyl Transpeptidase 90 U/L (5-36); Uric Acid 5.5 mg/dL (2.5-8.0)
[2017-08-20] MEDS: 0.9 % SODIUM CHLORIDE 10 ML SYRINGE IV SCH ×3 (05:58→22:18)
[2017-08-20] MEDS: BUDESONIDE 0.5 MG/2 ML AMPUL.NEB NEB SCH ×3 (06:56→19:05)
[2017-08-20] MEDS: LEVOTHYROXINE SODIUM 112 MCG TABLET PO SCH (08:28)
[2017-08-20] MEDS: INSULIN LISPRO 1 UNIT/0.01 ML UNIT SQ SCH ×4 (08:29→21:02)
[2017-08-20] MEDS: GABAPENTIN 300 MG CAPSULE PO SCH ×2 (08:58→20:32)
[2017-08-20] MEDS: DILTIAZEM 180 MG CAP.XL.24H PO SCH (08:58)
[2017-08-20] MEDS: ENOXAPARIN 40 MG/0.4 ML SYRINGE SQ SCH (08:58)
[2017-08-20] MEDS: amLODIPine 5 MG TABLET PO SCH (08:58)
[2017-08-20] MEDS: LISINOPRIL 10 MG TABLET PO SCH (08:58)
[2017-08-20] MEDS: INSULIN GLARGINE, HUMAN 1 UNIT/0.01 ML SQ SCH ×2 (08:58→21:02)
[2017-08-20] MEDS: THEOPHYLLINE ANHYDROUS 300 MG TAB.ER.12H PO SCH ×2 (08:58→20:31)
[2017-08-20] MEDS: FAMOTIDINE/PF 20 MG/2 ML VIAL IV SCH ×2 (08:59→20:32)
[2017-08-20] MEDS: methylPREDNISolone SOD SUCC 40 MG/ML VIAL IV SCH ×2 (08:59→20:32)
[2017-08-20] MEDS: CEFEPIME 1 GM VIAL IV SCH ×2 (09:12→21:02)
[2017-08-20] MEDS: PARoxetine 20 MG TABLET PO SCH (09:13)
[2017-08-20] MEDS: VANCOMYCIN 1,000 MG in 0.9 % SODIUM CHLORIDE 250 ML IV SCH (09:59)
[2017-08-20] MEDS: NICOTINE 21 MG PATCH TOPICAL SCH (09:59)
[2017-08-20] MEDS: ALBUTEROL SULFATE 1 PUFF INHALER INH PRN (10:18)
--- NOTE | 2017-08-20 11:14 | Internal Med Progress Note ---
Medical - PN: Subj Patient information: Note initiated : 08/20/17 at 11:12 am Service Date, if different from initiated Date: [] Patient: Zakia Gibson a 62 y/o F admitted on 08/12/17 for Shortness of Breath/COPD Exacerbation. Chief Complaint: [] Interval history: Ms. Gibson is a 62 year old Female with h/o copd on oxygen at home, still a smoker, htn, dm, chr pain, chr non compliance with treatments, presents to the ER with shortness of breath going on for the last few days, as [facility] she notes she has been short of breath since last discharge which was on 07/28/17, she has had 4 visits to the Er, and 2 back to back visits today, yesterday . She notes she is short of breath, with chest tightness,no chest pain, has dry cough, increased fatigue and decreased effort tolerance. She was here yesterday and was started on steroids, she notes she is taking those, she has ran out of all medications except duonebs, she notes she has been using it all night, without much help. She denies any sick contacts, The patient has not followed up with her PCP since her last discharge, and despite multiple episodes of counselling, still smokes. Her sister who is the power of litigation attorney associate was also at bed side today The patient wishes to be full code, I explained her and her sister her overall poor prognosis given her severe uncontrolled COPD, they verbalized understanding. In the Er she was tachycardic and tachypenic, Her ABG showed ph 7.39/71/60, on oxygen. The patient has poor air entry, chr leucocytosis and neg Chest x ray. She had a low grade temp. The patient is Blood gas shows much worse Co2 than her previous Co2 values, and given her increased work of breating, will admit her to the hospitak, to pcu status for further management. aug 13 Patient seen examined, this am, doing better, still has shortness of breath, but better than yesterday,Her abg shows some what more worsening co2 retention this AM, but she refused bipap yesterday. She received one 10mg hydrocodone and soma, and was knocked out at night, which may be responsible for worsening co2 status. She notes she takes muscle relaxants as well as hydrocodone 20mg,I think this is a a very high dose for her and as she was clearly knocked out with a lower dose, plan to cut bck dose of hydrocodone to 5-325 now, and d/c soma. Patient will continue to be monitored for the day. She has also refused fingerstick glucose monitoring, educated the need for same Aug 14 Patient seen examined, no acute overnight issues, breathing better but still rough has shortness of breath, no cough, Glucose level better Aug 15 patient seen examined, no acute overnight issues, pt still has sob, but improving, remains tachcyaredic tsh is neg, will get echo to evaluate cardiac function, and pulmonary HTN tachycardia could likely be secondary to use of b2 agonist for [place], pt is requesting inhlaer q2hrs on po steroids now. labs stable. 08/16-patient continues to deteriorate with worsening respiratory status.white count at 21,400 up from 13.2. persistent tachycardia in mid 120s.on 2 L oxygen. Very labored and unable to talk in full sentences. patient has advanced COPD carrying a poor prognosis however she appears to have a poor understanding of disease process and wanted information on lung transplant. She still continues to smoke despite multiple ER visits in the last year with COPD exacerbations. 08/17-patient clinically deteriorating and very lethargic and fatigued. Difficulty arousing. Check ABGs. White count of 30,300. No clear source identified. No overnight fever or low blood pressures and evidence of end organ dysfunction. await pro-calcitonin. patient has carries a very high risk mortality however insists on being full code. persistent tachycardia around 115. Labored breathing. blood cultures negative so far. blood sugar this morning at 25 and subsequently received dextrose. Lantus 15 units at bedtime discontinued. erratic blood sugars swinging up to 400s. 08/18 Patient seen examined, somewhat better today, echo reviewed, moderate Pulm HTN, remains tachycardic, short of breath, and unable to breath well.Discussed that she has poor prognosis, pt still desires everthing to be done. Discussed the case with pulmonary. Who advised to continue with present management, and add theophylline, added yesterday, X ray suggestive of pna? IV vanco, cefepime added wbc improved today. will get CTA for pe today, still wheezing 08/19 Patient seen examined, overnight issues noted, pt had called his friend to bring some narcotic pain medications, was caught and pills confiscated patient has h/o overuse of narcotics and likely is addicted to them. She admits to same. Educated that she is not able to have any visitors now given that they cannot be trusted to bring her meds Her CTA is neg for PE, does show show pneumonia which is being treated her BP Is elevated, start on cardizem 180mg qd, which I hope will also help with her heart rate Her Breathing is better today and she seems to be doing well at present. Aug 20 Patient seen examined, no acute ovenright issues, was on bipap overnight, plan to d/c same given her h/o substance abuse and the fact that he friends and family have brought in the drugs, will not allow visitors till time of discharge Plan to see how she does off bipap, if still gets sob, or needs bipap, then will consider xfer to higher center vs [facility]. Patient again educated at length regarding need to stay of narcotics, relaxants , as well as smoking if she is to have any meaningful life. She seems to be in end stage copd. Breathing is better today, better air entry, and only mild wheeze today on exam. Labs stable, Pertinent ROS: Denies headache, dizziness Denies chest pain, palpitations Denies cough , shortness of breath (stable, improving) Denies abdominal pain, nausea or vomiting. - Constitutional Vitals: Vital Signs Temp Pulse Resp BP Pulse Ox 97.8 F 104 H 14 160/93 96 08/20/17 08:00 08/20/17 09:19 08/20/17 07:06 08/20/17 08:28 08/20/17 09:19 Period Temp Pulse Resp BP Sys/Gutierrez Pulse Ox Last 24 Hr 96.8 F-98.7 F 92-175 12-21 130-160/50-93 86-99 Intake and Output 08/19/17 08/20/17 08/20/17 21:59 05:59 13:59 Intake Total 1180 / 1180 470 / 470 100 / 100 Output Total 550 / 550 950 / 950 Balance 630 / 630 -480 / -480 100 / 100 Weight 124 lb 14.4 oz Intake & Output: Intake & Output 08/19/17 08/20/17 08/20/17 21:59 05:59 13:59 Intake Total 1180 / 1180 470 / 470 100 / 100 Output Total 550 / 550 950 / 950 Balance 630 / 630 -480 / -480 100 / 100 Weight 124 lb 14.4 oz Intake: IV 100 / 100 100 / 100 100 / 100 Oral 1080 / 1080 370 / 370 Output: Void Amount 550 / 550 200 / 200 Urine/Stool Mix 750 / 750 Other: Meal snack Percent of Meal Consumed 100% Feeding Ability Assist with Tray Set Up # Voids 1 # Bowel Movements 1 1 Exam: Constitutional; Afebrile, cooperative, alert, not in distress. Eyes- No icterus, , No periorbital swelling Ears- Ext ear normal, hearing normal to conversation. Neck- Midline trachea, supple Respiratory system: Air Entry equal on both sides, no crackles, mild exp wheeze , improving air entry CVS- Rate rhythm regular, S1,S2 heard, no gallop, no rub. Abdomen- Soft nontender abdomen, no organomegaly, no tenderness, no guarding or rigidity, [employer]- AOOx3, moving all extremities, no gross focal deficit noted. Medical - PN: Obj Da - Labs CBC & Chem 7: 08/20/17 04:00 08/20/17 04:00 Labs: Abnormal Lab Results 08/20/17 08/20/17 08/19/17 04:00 04:00 03:55 WBC 13.0 H RBC 3.17 L Hgb 9.6 L Hct 30.1 L Plt Count 451 H Gran % 91.2 H Lymph % (Auto) 3.7 L Gran # 11.9 H Lymph # (Auto) 0.5 L Chloride 95 L Carbon Dioxide 31 H BUN 40 H 31 H Glucose 172 H 273 H GGT 90 H 101 H Total Protein 5.6 L Albumin 08/19/17 08/18/17 08/18/17 03:55 03:40 03:40 WBC 16.1 H 14.5 H RBC 3.40 L 3.33 L Hgb 10.3 L 10.1 L Hct 32.2 L 31.6 L Plt Count 458 H 454 H Gran % 90.8 H 90.5 H Lymph % (Auto) 4.1 L 4.2 L Gran # 14.6 H 13.1 H Lymph # (Auto) 0.7 L 0.6 L Chloride Carbon Dioxide 35 H BUN 25 H Glucose 222 H GGT 104 H Total Protein 5.6 L Albumin 2.9 L Meds: Medications Hydrocodone Bitart/Acetaminophen ([place] 5/325mg) 1 tab PO Q6HP PRN PRN Reason: Pain Last Admin: 08/20/17 04:51 Dose: 1 tab Albuterol Sulfate (Ventolin) 2 puff INH Q2HP PRN PRN Reason: Shortness Of Breath Last Admin: 08/20/17 10:18 Dose: 2 puff Albuterol/Ipratropium (Duoneb) 3 ml NEB Q4HRT [facility] Last Admin: 08/20/17 10:58 Dose: 3 ml Amlodipine Besylate (Norvasc) 5 mg PO DAILY [facility] Last Admin: 08/20/17 08:58 Dose: 5 mg Budesonide (Pulmicort) 0.5 mg NEB Q12 [facility] Last Admin: 08/20/17 10:42 Dose: Not Given Cefepime HCl (Maxipime) 1 gm IV Q12H [facility] Last Admin: 08/20/17 09:12 Dose: 1 gm Clonidine HCl (Catapres) 0.1 mg PO Q4HP PRN PRN Reason: Hypertension Last Admin: 08/19/17 15:48 Dose: 0.1 mg Dextrose (Dextrose 50%) 0 ml IV UD PRN PRN Reason: Hypoglycemia Last Admin: 08/17/17 08:40 Dose: 25 ml Diagnostic Test (Pha) (Accu-Chek) 1 each FS ACHS [facility] Last Admin: 08/20/17 06:37 Dose: 1 each Diltiazem HCl (Cardizem Cd) 180 mg PO DAILY [facility] Last Admin: 08/20/17 08:58 Dose: 180 mg Enoxaparin Sodium (Lovenox) 40 mg SQ DAILY [facility] Last Admin: 08/20/17 08:58 Dose: 40 mg Famotidine (Pepcid) 20 mg IV Q12 [facility] Last Admin: 08/20/17 08:59 Dose: 20 mg Gabapentin (Neurontin) 300 mg PO BID [facility] Last Admin: 08/20/17 08:58 Dose: 300 mg Glucose (Insta-Glucose) 15 gm PO PRN PRN PRN Reason: Hypoglycemia Guaifenesin (Robitussin) 200 mg PO TID [facility] Last Admin: 08/20/17 09:12 Dose: 200 mg Hydralazine HCl (Apresoline) 10 mg IV Q6HP PRN PRN Reason: Hypertension Last Admin: 08/19/17 00:06 Dose: 10 mg Magnesium Sulfate (Magnesium Sulfate) 2 gm in 50 mls @ 25 mls/hr IV PRN PRN PRN Reason: MG = or < 1.7 Metronidazole (Flagyl) 500 mg in 100 mls @ 100 mls/hr IV Q8H [facility] Last Infusion: 08/20/17 06:40 Dose: Infused Vancomycin HCl 1,000 mg/ (Sodium Chloride) 250 mls @ 250 mls/hr IV Q24H [facility] Last Admin: 08/20/17 09:59 Dose: 250 mls/hr Insulin Glargine (Lantus) 15 unit SQ BID [facility] Last Admin: 08/20/17 08:58 Dose: 15 unit Insulin Human Lispro (Humalog) 0 unit SQ ACHS [facility] PRN Reason: Protocol Last Admin: 08/20/17 08:29 Dose: 6 unit Levothyroxine Sodium (Synthroid) 112 mcg PO QAMAC [facility] Last Admin: 08/20/17 08:28 Dose: 112 mcg Lisinopril (Zestril) 10 mg PO DAILY [facility] Last Admin: 08/20/17 08:58 Dose: 10 mg Lorazepam (Ativan) 1 mg PO Q4HP PRN PRN Reason: ANXIETY/SEDATION Last Admin: 08/20/17 04:51 Dose: 1 mg Methylprednisolone Sodium Succinate (Solu-Medrol) 40 mg IV BID [facility] Last Admin: 08/20/17 08:59 Dose: 40 mg Montelukast Sodium (Singular) 10 mg PO HS [facility] Last Admin: 08/19/17 21:32 Dose: 10 mg Naloxone HCl (Narcan) 0.1 mg IV Q2MIN PRN PRN Reason: Opiate Reversal Nicotine (Nicoderm) 21 mg TOPICAL DAILY@1000 [facility] Last Admin: 08/20/17 09:59 Dose: 21 mg Ondansetron HCl (Zofran) 4 mg IV Q4-6HP PRN PRN Reason: Nausea And Vomiting Paroxetine HCl (Paxil) 20 mg PO DAILY [facility] Last Admin: 08/20/17 09:13 Dose: 20 mg Sodium Chloride (Saline Flush) 10 ml IV Q8 [facility] Last Admin: 08/20/17 05:58 Dose: 10 ml Theophylline (Theophylline Anhydrous) 150 mg PO BID [facility] Last Admin: 08/20/17 08:58 Dose: 150 mg Throat Lozenges (Cepacol) 1 lozenge PO PRN PRN PRN Reason: Sore Throat Vancomycin HCl (Vancomycin Per Pharmacy) 1 order IV UD [facility] Medical - PN: A/P - Time Spent With Patient Total time spent is greater than 50% in coordination of care (as documented) at patient's floor/unit and/or counseling patient: - Narrative A/P Narrative: A/P Acute on chronic hypoxic, Hypercapnic Resp failure: Due to copd, supplemental oxygen now, pt is still on oxygen 2-3 L which is her baseline. Needed bipap yesterday night, plan to d/c bipap now and monitor off bipap, if no improvement consider X sh[facility] to the [facility]. Narcotic addiction/ Abuse: Caught with hydrocodone pills from home, educated need to abstain as her teneous resp condition will likely result in resp depression and . No visitors COPD exacerbation: duonebs, and steroids, clinically improving. on theophyline 150mg bid. check theophyline level. HCAP pneumonia: IV vanco and cefepime for now, d4 today, improving. should have last dose tomorrow, wbc trending d own Hypoglycemia: resolved. Hyperkalemia: resolved, monitor. DM: Lantus and ssi for now, low glucose now back up, increase lantus to 18units bid, continue med scale ssi. HTN: On lisinopril, bp elevated, cardizem added Chr pain: On chr muscle relaxants and pain meds. Given that she was drowsy even with one dose of hydrocodone, and Soma. On gabapentin continue same. off all narcotics now. Chr leucocytosis: Stable, today, had worsened, but now back to baseline. likely infection caused worsening of leucocytosis , CT is neg for pE, started Cardizem which should help with BP and HR. Discussed with her need for o utpatient follow up with structural steel worker for eval of chr leucyctosis. DVT Lovenox sq 40mg Diet carb consistent Full code overall prognosis is poor given advanced copd, non compliance to treatment and smoking, she also is addicted to narcotic pain medications, which make treating her condition difficult. . Medical - PN: Qual - Stroke Symptom Onset Unknown: No - VTE Deep Vein Thrombosis/Pulmonary Embolism Present on Admission: No
[2017-08-20] MEDS: MONTELUKAST 10 MG TABLET PO SCH (20:32)
[2017-08-21] MEDS: IPRATROPIUM/ALBUTEROL 3 ML AMPUL.NEB NEB SCH ×3 (02:56→11:06)
[2017-08-21] MEDS: 0.9 % SODIUM CHLORIDE 10 ML SYRINGE IV SCH (05:51)
[2017-08-21] MEDS: metroNIDAZOLE 500 MG/100 ML BAG IV SCH ×2 (05:51→13:35)
[2017-08-21 06:16] LABS: ALT/SGPT 11 U/l (0-40); Albumin 3.2 gm/dL (3.2-5.2); Albumin/Globulin Ratio 1.2 (1.0-2.3); Alkaline Phosphatase 77 U/L (39-117); Bilirubin,Direct < 0.2 mg/dL (0.0-0.3); Blood Urea Nitrogen 40 mg/dl (8-23); Gamma Glutamyl Transpeptidase 95 U/L (5-36); Uric Acid 5.8 mg/dL (2.5-8.0)
[2017-08-21 06:57] LABS: Basophils # (Auto) 0 K/mcL (0.0-0.3); Basophils % (Auto) 0 % (0.0-2.0); Eosinophils # (Auto) 0.3 K/mcL (0.0-0.7); Eosinophils % (Auto) 2.8 % (0.0-7.0); Granulocytes % (Auto) 91.6 % (38.0-78.0); Lymphocytes # (Auto) 0.5 K/mcL (1.5-4.8); Lymphocytes % (Auto) 4.5 % (15.5-49.0); Mean Cell Volume 94.4 fL (80.0-100.0); Mean Corpuscular HGB Conc 31.6 g/dL (31.0-36.0); Mean Corpuscular Hemoglobin 29.9 pg (26.0-34.0); Monocytes # (Auto) 0.1 K/mcL (0.1-0.9); Monocytes % (Auto) 1.1 % (1.0-12.0); Platelet Count 273 K/mcL (140-440); RBC 3.28 M/mcL (4.00-5.20); Red Cell Distribution Width 13.7 % (11.5-14.5)
[2017-08-21] MEDS: BUDESONIDE 0.5 MG/2 ML AMPUL.NEB NEB SCH (07:18)
[2017-08-21] MEDS: LEVOTHYROXINE SODIUM 112 MCG TABLET PO SCH (07:27)
[2017-08-21] MEDS: INSULIN LISPRO 1 UNIT/0.01 ML UNIT SQ SCH ×2 (07:32→11:37)
[2017-08-21] MEDS: GABAPENTIN 300 MG CAPSULE PO SCH (08:32)
[2017-08-21] MEDS: methylPREDNISolone SOD SUCC 40 MG/ML VIAL IV SCH (08:32)
[2017-08-21] MEDS: DILTIAZEM 180 MG CAP.XL.24H PO SCH (08:32)
[2017-08-21] MEDS: amLODIPine 5 MG TABLET PO SCH (08:32)
[2017-08-21] MEDS: LISINOPRIL 10 MG TABLET PO SCH (08:32)
[2017-08-21] MEDS: INSULIN GLARGINE, HUMAN 1 UNIT/0.01 ML SQ SCH (08:34)
[2017-08-21] MEDS: ENOXAPARIN 40 MG/0.4 ML SYRINGE SQ SCH (08:34)
[2017-08-21] MEDS: THEOPHYLLINE ANHYDROUS 300 MG TAB.ER.12H PO SCH (08:34)
[2017-08-21] MEDS: FAMOTIDINE/PF 20 MG/2 ML VIAL IV SCH (08:34)
[2017-08-21] MEDS: PARoxetine 20 MG TABLET PO SCH (08:54)
[2017-08-21] MEDS: CEFEPIME 1 GM VIAL IV SCH (08:54)
[2017-08-21] MEDS: NICOTINE 21 MG PATCH TOPICAL SCH (08:55)
[2017-08-21] MEDS: HYDROcodone/APAP 5/325MG TABLET PO PRN (09:34)
[2017-08-21] MEDS: ALBUTEROL SULFATE 1 PUFF INHALER INH PRN ×2 (09:35→13:12)
[2017-08-21] MEDS: LORazepam 0.5 MG TABLET PO PRN (09:35)
[2017-08-21] MEDS: VANCOMYCIN 1,000 MG in 0.9 % SODIUM CHLORIDE 250 ML IV SCH (10:29)
--- NOTE | 2017-08-21 11:54 | Discharge Summary ---
Medical - DS: Prov Patient information: Note initiated : 08/21/17 at 11:48 am Service Date, if different from initiated Date: [] Patient: Zakia Gibson 62 y/o F admitted on 08/12/17 for Shortness of Breath/COPD Exacerbation. Chief Complaint: [] Date of admission: 08/12/17 16:40 Discharge date: 08/21/17 Primary care physician: Jazmine Yao Consults: 08/12/17 14:48 Consult to Physician [CONS] Stat Comment: t4 Consulting Provider: Josias Singh Reason For Exam: Physician to Consult Medical - DS: Meds - Discharge Medications Prescriptions: Diltiazem [Cardizem Cd] 180 mg PO DAILY #30 cap.xl.24h LORazepam [Ativan] 1 mg PO Q8HP PRN #10 tab PRN Reason: Anxiety/Sedation Theophylline Anhydrous 150 mg PO BID #30 tab.er.12h Active and Home Medications: Home Medications Albuterol Sulfate [Ventolin] 2 puff INH Q4HP PRN 08/15/16 [History Confirmed Last Taken 01/18/17 2 PUFFS] Gabapentin [Neurontin] 300 mg PO BID 08/15/16 [History Confirmed 08/12/17 Last Taken 01/22/17 09:00 300 mg.] Lisinopril [Zestril] 10 mg PO DAILY #30 tablet 12/23/16 [Rx Confirmed 08/12/17 Last Taken Unknown] Bisacodyl [Dulcolax] 10 mg AR DAILYP PRN 01/22/17 [History Confirmed 08/12/17 Last Taken Unknown] Levothyroxine [Synthroid] 112 mcg PO DAILY 01/22/17 [History Confirmed 08/12/17 Last Taken 01/22/17 100 MCG] Montelukast [Singular] 10 mg PO HS 01/22/17 [History Confirmed 08/12/17 Last Taken 01/18/17 22:00 10 MG.] PARoxetine HCL [Paxil] 20 mg PO DAILY 01/22/17 [History Confirmed 08/12/17 Last Taken 01/22/17 20 MG.] Prochlorperazine (Pp) 10 mg PO Q6HP PRN 01/22/17 [History Confirmed 08/12/17 Last Taken 06/22/17] amLODIPine [Norvasc] 5 mg PO DAILY 01/22/17 [History Confirmed 08/12/17 Last Taken 01/18/17 5 MG.] Acetaminophen [Non-Aspirin] 325 - 650 mg PO Q4-6HP PRN 01/23/17 [History Confirmed 08/12/17 Last Taken Unknown] metFORMIN [Glucophage] 1,000 mg PO BIDCC #60 tablet 01/24/17 [Rx Confirmed 08/12 Last Taken Unknown] HYDROcodone/ACETAMINOPHEN [[place] 10-325 Tablet] 2 tablet PO QIDP PRN 07/22/17 [ History Confirmed 08/12/17 Last Taken Unknown] Insulin Lispro [Humalog] 0 unit SQ ACHS 07/22/17 [History Confirmed 08/12/17 Last Taken Unknown] Linagliptin [Tradjenta] 5 mg PO DAILY 07/22/17 [History Confirmed 08/12/17 Last Taken Unknown] Potassium Chloride [Klor-Con Sprinkle] 20 meq PO BIDCC 07/22/17 [History Confirmed 08/12/17 Last Taken Unknown] Budesonide [Pulmicort] 0.5 mg NEB Q12 #60 ampul.neb 07/28/17 [Rx Confirmed 08/12 Last Taken Unknown] Ipratropium/Albuterol [Duoneb] 3 ml NEB Q6 #120 ampul.neb 07/28/17 [Rx Confirmed 08/12/17 Last Taken Unknown] predniSONE [Prednisone] 40 mg PO [facility] #23 tab MDD For 3 days 07/28/17 [Rx Confirmed 08/12/17 Last Taken Unknown] Diltiazem [Cardizem Cd] 180 mg PO DAILY #30 cap.xl.24h 08/21/17 [Rx Last Taken Unknown] LORazepam [Ativan] 1 mg PO Q8HP PRN #10 tab 08/21/17 [Rx Last Taken Unknown] Theophylline Anhydrous 150 mg PO BID #30 tab.er.12h 08/21/17 [Rx Last Taken Unknown] Medical - DS: Hosp Hospital course: Discharge diagnosis * healthcare associate pneumonia status post 8 days antibiotics including cefepime and vancomycin. Leukocyte is resolved. Clinically better. on 1.5 L oxygen * Acute change in mental status secondary to narcotic addiction- Patient has been getting narcotics from her friend which was discovered by nursing staffs enhanced Mister visitations were discontinued. Patient remarkably improved there on. * severe sepsis secondary to above-white count down from 30,000-11 * Acute on chronic hypoxic, Hypercapnic Resp failure: Due to copd exacerbation. managed steroids/bronchodilators/oxygen. continue existing steroids and bronchodilators at home * COPD exacerbation: negative chest imaging for infiltrates.on doxycycline, duonebs, and oral steroids * DM type II-on basal prandial insulin * Hyperkalemia: resolved * HTN: On lisinopril /calcium channel carol * Pulmonary hypertension moderate on echo.on diltiazem * Chr pain: d/c'd soma . Continue gabapentin. dvised to refrain from excessive narcotic use * Chr polycythemia: likely COPD related Brief hospital course Ms. Gibson is a 62 year old Female with h/o copd on oxygen at home, still a smoker, htn, dm, chr pain, chr non compliance with treatments, presents to the ER with shortness of breath going on for the last few days, [facility] notes she has been short of breath since last discharge which was on 07/28/17, she has had 4 visits to the Er, and 2 back to back visits today, yesterday . She notes she is short of breath, with chest tightness,no chest pain, has dry cough, increased fatigue and decreased effort tolerance. She was here yesterday and was started on steroids, she notes she is taking those, she has ran out of all medications except duonebs, she notes she has been using it all night, without much help. She denies any sick contacts, The patient has not followed up with her PCP since her last discharge, and despite multiple episodes of counselling, still smokes. Her sister who is the power of payroll accounting specialist was also at bed side today The patient wishes to be full code, I explained her and her sister her overall poor prognosis given her severe uncontrolled COPD, they verbalized understanding. In the Er she was tachycardic and tachypenic, Her ABG showed ph 7.39/71/60, on oxygen. The patient has poor air entry, chr leucocytosis and neg Chest x ray. She had a low grade temp. The patient is Blood gas shows much worse Co2 than her previous Co2 values, and given her increased work of breating, will admit her to the hospitak, to pcu status for further management. aug 13 Patient seen examined, this am, doing better, still has shortness of breath, but better than yesterday,Her abg shows some what more worsening co2 retention this AM, but she refused bipap yesterday. She received one 10mg hydrocodone and soma, and was knocked out at night, which may be responsible for worsening co2 status. She notes she takes muscle relaxants as well as hydrocodone 20mg,I think this is a a very high dose for her and as she was clearly knocked out with a lower dose, plan to cut bck dose of hydrocodone to 5-325 now, and d/c soma. Patient will continue to be monitored for the day. She has also refused fingerstick glucose monitoring, educated the need for same Aug 14 Patient seen examined, no acute overnight issues, breathing better but still rough has shortness of breath, no cough, Glucose level better Aug 15 patient seen examined, no acute overnight issues, pt still has sob, but improving, remains tachcyaredic tsh is neg, will get echo to evaluate cardiac function, and pulmonary HTN tachycardia could likely be secondary to use of b2 agonist for [place], pt is requesting inhlaer q2hrs on po steroids now. labs stable. 08/16-patient continues to deteriorate with worsening respiratory status.white count at 21,400 up from 13.2. persistent tachycardia in mid 120s.on 2 L oxygen. Very labored and unable to talk in full sentences. patient has advanced COPD carrying a poor prognosis however she appears to have a poor understanding of disease process and wanted information on lung transplant. She still continues to smoke despite multiple ER visits in the last year with COPD exacerbations. 08/17-patient clinically deteriorating and very lethargic and fatigued. Difficulty arousing. Check ABGs. White count of 30,300. No clear source identified. No overnight fever or low blood pressures and evidence of end organ dysfunction. await pro-calcitonin. patient has carries a very high risk mortality however insists on being full code. persistent tachycardia around 115. Labored breathing. blood cultures negative so far. blood sugar this morning at 25 and subsequently received dextrose. Lantus 15 units at bedtime discontinued. erratic blood sugars swinging up to 400s. 08/18 Patient seen examined, somewhat better today, echo reviewed, moderate Pulm HTN, remains tachycardic, short of breath, and unable to breath well.Discussed that she has poor prognosis, pt still desires everthing to be done. Discussed the case with pulmonary. Who advised to continue with present management, and add theophylline, added yesterday, X ray suggestive of pna? IV vanco, cefepime added wbc improved today. will get CTA for pe today, still wheezing 08/19 Patient seen examined, overnight issues noted, pt had called his friend to bring some narcotic pain medications, was caught and pills confiscated patient has h/o overuse of narcotics and likely is addicted to them. She admits to same. Educated that she is not able to have any visitors now given that they cannot be trusted to bring her meds Her CTA is neg for PE, does show show pneumonia which is being treated her BP Is elevated, start on cardizem 180mg qd, which I hope will also help with her heart rate Her Breathing is better today and she seems to be doing well at present. Aug 20 Patient seen examined, no acute ovenright issues, was on bipap overnight, plan to d/c same given her h/o substance abuse and the fact that he friends and family have brought in the drugs, will not allow visitors till time of discharge Plan to see how she does off bipap, if still gets sob, or needs bipap, then [facility]. Patient again educated at length regarding need to stay of narcotics, relaxants , as well as smoking if she is to have any meaningful life. She seems to be in end stage copd. Breathing is better today, better air entry, and only mild wheeze today on exam. Labs stable, 08/21-patient discharging home. Off BiPAP. At 1.5 L oxygen. Alert oriented. Continues to request opioids and benzodiazepines. Counseled aggressively to avoid use of opioids due to high risk from overdose. However patient has a clear history of noncompliance and would likely follow back to opioids. At this time patient is being discharged with medications and recommendations as above which were discussed Discharge diagnosis: . - Time Spent with Patient Total time spent providing and/or coordinating discharge services: Greater than 30 minutes Medical - DS: Exam - Constitutional Vitals: Vital Signs Temp Pulse Resp BP BP Pulse Ox 08/21/17 11:09 105 H 16 08/21/17 07:48 98.7 F 123/106 08/21/17 07:47 20 93 08/21/17 07:21 99 H 18 98 08/21/17 03:51 98.3 F 23 H 181/76 94 08/21/17 00:05 98.3 F 24 H 170/77 93 08/20/17 22:57 112 H 16 08/20/17 20:07 112 H 22 149/71 91 08/20/17 20:00 22 94 08/20/17 19:23 113 H 16 08/20/17 19:08 91 08/20/17 16:00 98.7 F 20 164/74 92 08/20/17 15:16 104 H 16 08/20/17 13:54 107 H 92 08/20/17 13:41 109 H 153/80 90 08/20/17 12:00 99.1 F H Intake and Output 08/20/17 08/21/17 08/21/17 21:59 05:59 13:59 Intake Total 580 / 580 760 / 760 220 / 220 Output Total 601 / 601 Balance 580 / 580 159 / 159 220 / 220 Intake: IV 100 / 100 100 / 100 100 / 100 Oral 480 / 480 660 / 660 120 / 120 Output: Void Amount 600 / 600 # of times incontinent of urine Other: Meal more crackers Breakfast Percent of Meal Consumed 100% 100% Feeding Ability Independent Assist with Tray Set Up # Voids 2 # Bowel Movements 1 Weight 133 lb 4.8 oz Medical - DS: Data Labs on day of discharge: Labs from last 24 hours 08/21/17 08/21/17 03:42 03:42 WBC 11.6 H RBC 3.28 L Hgb 9.8 L Hct 31.0 L MCV 94.4 MCH 29.9 MCHC 31.6 RDW 13.7 Plt Count 273 MPV 9.2 Gran % 91.6 H Lymph % (Auto) 4.5 L [place] % (Auto) 1.1 Eos % (Auto) 2.8 Baso % (Auto) 0 Gran # 10.6 H Lymph # (Auto) 0.5 L [place] # (Auto) 0.1 Eos # (Auto) 0.3 Baso # (Auto) 0 Sodium 139 Potassium 4.3 Chloride 100 Carbon Dioxide 26 Anion Gap 13.0 BUN 40 H Creatinine 1.0 GFR Calculation 60 Glucose 186 H Uric Acid 5.8 Calcium 9.3 Phosphorus 3.2 Magnesium 1.9 Total Bilirubin < 0.2 Direct Bilirubin < 0.2 GGT 95 H AST 12 ALT 11 Alkaline Phosphatase 77 Lactate Dehydrogenase 187 Total Protein 5.9 Albumin 3.2 Globulin 2.7 Albumin/Globulin Ratio 1.2 Triglycerides 46 Medical - DS: A/P - Patient/Caregiver Discharge Instructions Activity: increase activity as tolerated Diet: Consistent Carbohydrate Additional Instructions: Follow-up PCP in 5 days follow-up pulmonology in 2 weeks I recommend primary care physician to check CBC BMP as a posthospital follow- up oxygen to keep sats around 88% continue theophylline as advised by pulmonology Continue aggressive bowel regimen to prevent constipation All meals on chair sitting upright at 90 degrees to prevent aspiration Return to ER if worsening fever chills shortness of breath, diarrhea, bleeding Refrain from smoking and abusing opioids Continue diet and activity as advised Discussed importance of medication adherence Please review medication list with patient prior to discharge Please schedule follow-up with PCP/Providers prior to discharge and provide printouts Portions of this chart may have been created with [employer] voice recognition software. Occasional wrong-word or ?sound-like? substitutions may have occurred due to the inherent limitations of voice recognition software. Please read the chart carefully and recognize, using context, where the substitutions have occurred. CC- PCP Prescriptions: Diltiazem [Cardizem Cd] 180 mg PO DAILY #30 cap.xl.24h LORazepam [Ativan] 1 mg PO Q8HP PRN #10 tab PRN Reason: Anxiety/Sedation Theophylline Anhydrous 150 mg PO BID #30 tab.er.12h - Follow up Plan Follow up with: Jazmine Yao MD [Primary Care Provider] - 08/28/17 10:30 am Disposition: Home, Self-Care Prognosis: Fair Rehab Potential: Fair I certify that the patient requires SNF services: No Overall status at discharge: patient is progressing back to baseline Medical - DS: Qual - VTE Deep Vein Thrombosis/Pulmonary Embolism Present on Admission: No
== END 2017-08-21 14:25 | disposition home or self-care (01) | DRG 871 ==
LOC: ED 11:49 → ICU 16:40
PROVIDERS: ADMIT Internal Medicine; ATTEND Internal Medicine